=== PATIENT | male | born 1985 ===

== ENCOUNTER 2020-03-01 15:46 | Outpatient (REF) | payer OTHER, SELFPAY ==
--- NOTE | 2020-03-01 16:45 | MR_ITS ---
EXAMINATION: MR BRAIN WITHOUT AND WITH CONTRAST CLINICAL INFORMATION: Cluster headache. COMPARISON: Head CT 02/02/2017. TECHNIQUE: Multiplanar, multisequence imaging of the brain was performed before and after the intravenous administration of 8.5 mL of Gadavist. FINDINGS: There is no acute infarction, mass, hemorrhage, or extra-axial collection. No abnormal or unexpected intracranial enhancement is seen. The ventricles, sulci, and basilar cisterns are normal in size and configuration. The midline structures appear normal. The cerebellar tonsils terminate above the foramen magnum. The flow voids of the major intracranial arteries appear intact. The bones and extracranial soft tissues are within normal limits. The orbital contents are unremarkable. MR/MR head/brain wo/w con IMPRESSION: No mass lesion, acute infarction, or abnormal intracranial enhancement.
== END 2020-03-01 15:47 | disposition home or self-care (01) ==
LOC: HO.MRI 15:46
PROVIDERS: PCP Internal Medicine; Visit Provider Psychiatry & Neurology Neurology
DX: G44.009 Cluster headache syndrome, unspecified, not intractable (principal)
CPT/HCPCS: 70553; A9585

== ENCOUNTER → 2020-12-09 09:03 | Outpatient (BNVA) | payer OTHER, SELFPAY | PROVIDERS: PCP Internal Medicine; Referring Provider Internal Medicine; Visit Provider Surgery | DX: K64.9 Unspecified hemorrhoids (principal) | CPT/HCPCS: 46600; 99212 ==

== ENCOUNTER 2021-01-25 14:57 | Outpatient (REF) | payer OTHER, SELFPAY | END 2021-01-25 14:58 | disposition home or self-care (01) | LOC: HO.LAB 14:57 | PROVIDERS: PCP Internal Medicine; Visit Provider Internal Medicine | DX: Z13.89 Encounter for screening for other disorder (principal) | CPT/HCPCS: C9803; U0003; U0005 ==

== ENCOUNTER 2021-01-26 11:02 | Outpatient (REF) | payer OTHER, SELFPAY ==
[2021-01-26 12:30] LABS: COVID-19 Test Negative (Negative); IDNOW Serial# 16C4AD1C
== END 2021-01-26 11:03 | disposition home or self-care (01) ==
LOC: HO.LAB 11:02
PROVIDERS: PCP Internal Medicine; Visit Provider Internal Medicine
DX: Z20.822 Contact with and (suspected) exposure to COVID-19 (principal)
CPT/HCPCS: 36415; 87635; C9803

== ENCOUNTER 2021-01-27 09:06 | Outpatient (REF) | payer OTHER, SELFPAY | END 2021-01-27 09:07 | disposition home or self-care (01) | LOC: HO.LAB 09:06 | PROVIDERS: Visit Provider Internal Medicine | DX: Z13.89 Encounter for screening for other disorder (principal) ==

== ENCOUNTER 2021-03-26 19:09 | Emergency (ER) | payer OTHER, SELFPAY ==
--- NOTE | ~2021-03-26 | XR_ITS ---
EXAMINATION: XR THORACOLUMBAR SPINE CLINICAL INFORMATION: T11 tenderness. Evaluate for etiology. COMPARISON: Dorsal spine series July 2017 TECHNIQUE: 4 views of the dorsal spine FINDINGS: The dorsal spine the vertebral alignment is normal. No intrinsic bony abnormality. The disc heights and neural foramina are well maintained. The endplates and posterior elements are normal. No fracture or subluxation. The surrounding prevertebral soft tissues are unremarkable. Incidental note made of orthopedic fixation in the lower cervical spine secondary to cervical fusion XR/XR thoracic spine 2V IMPRESSION: No abnormality of T11. No acute abnormality
[2021-03-26 19:12] VITALS: BP 111/65; PULSE 77; RESP 18; TEMP 36.4; O2SAT 98; BMI 25.9
--- NOTE | 2021-03-26 19:50 | ED_ITS ---
HPI - Back Pain/Injury General Chief Complaint: Back Pain/Injury Stated Complaint: back pain Time Seen by Provider: 03/26/21 19:48 Source: patient Mode of arrival: ambulatory Limitations: no limitations History of Present Illness HPI Narrative: History of chronic back pain had laminectomy few years ago not taking any pain medication 3 days ago he bent down noticed pain in lower thoracic and upper lumbar area no radiation of pain no motor weakness sensory loss Related Data Home Medications Medication Instructions Recorded Confirmed baclofen 10 mg tablet 10 mg PO BID 12/09/20 12/09/20 gabapentin 600 mg tablet mg PO 12/09/20 12/09/20 pantoprazole 40 mg tablet,delayed 40 mg PO BID 12/09/20 12/09/20 release sertraline 100 mg tablet 100 mg PO BID 12/09/20 12/09/20 sumatriptan succinate 6 mg/0.5 mL mg SUBCUT 12/09/20 12/09/20 subcutaneous pen injector Previous Rx's Medication Instructions Recorded hydrocortisone acetate 25 mg 25 mg ND BID #24 ea 01/31/21 rectal suppository (Anucort-HC) cyclobenzaprine 10 mg tablet 10 mg PO Q8H #20 tab 03/26/21 tramadol 50 mg tablet 50 mg PO Q6H PRN #20 tab 03/26/21 Allergies Allergy/AdvReac Type Severity Reaction Status Date / Time ibuprofen [IBUPROFEN] Allergy Intermediate NOSEBLEEDS Verified 03/26/21 19:12 alcohol [ALCOHOL] Allergy Unknown FACIAL Verified 03/26/21 19:12 SWELLING,REDNESS oxycodone [From PERCOCET] Allergy Unknown TACHYCARDIA Verified 03/26/21 19:12 ,SHAKING aspirin AdvReac Unknown bleeding Verified 03/26/21 19:12 Beer/ wine Allergy Unknown anaphylaxis Uncoded 03/26/21 19:12 Review of Systems Review of Systems: Yes all other systems are reviewed and are negative PMFSH Past Medical History Medical History Bleeding hemorrhoids Migraine Surgical History History of hernia repair Social History Social History Advance Directives: No Advance Directives Information Provided: No Physical Exam Vital Signs: Vital Signs: Last Vital Signs Temp 97.6 F 03/26/21 19:12 Pulse 77 03/26/21 19:12 Resp 18 03/26/21 19:12 BP 111/65 03/26/21 19:12 Pulse Ox 98 03/26/21 19:12 BMI result Body Mass Index 25.9 Const: General: comfortable and no acute distress Orientation/c onsciousness: patient oriented x3 Neck: Neck: Yes full ROM, Yes trachea midline and No tender Resp: Effort & Inspection: normal respiratory effort Auscultation: clear to auscultation bilaterally Cardio: Heart sounds: S1 normal heart sound present and S2 normal heart sound present GI: Inspection: Yes normal to inspection Palpation (GI): Soft to palpation and nontender Auscultation: normal bowel sounds : General: Yes no CVA tenderness Back/Spine/Pelvis: Back: no CVA tenderness Back/spine/pelvis image: 1. Diffuse tenderness T11/T12 area no deformity paraspinal muscle spasm++ Skin: General skin exam: no rashes or lesions noted Neuro: General: patient oriented x3, gait normal and no focal motor deficits MDM - Back Pain/Injury MDM Narrative Medical decision making narrative: Thoracic spine x-ray negative for any fracture patient diffuse pain in likely muscular discharge patient home on tramadol and Flexeril Discharge Plan Discharge Clinical Impression: Thoracic back pain Patient Disposition: Home, Self-Care Instructions: Back Pain (ED) Additional Instructions: Apply ice pack Rest Pain medication and muscle relaxer as advised Follow-up with PCP if not better Prescriptions: New cyclobenzaprine 10 mg tablet 10 mg PO Q8H Qty: 20 0RF tramadol 50 mg tablet 50 mg PO Q6H PRN (Reason: pain) Qty: 20 0RF No Action hydrocortisone acetate [Anucort-HC] 25 mg suppository 25 mg ND BID Qty: 24 0RF sumatriptan succinate 6 mg/0.5 mL pen injector subcut 0RF sertraline 100 mg tablet 100 mg PO BID 0RF baclofen 10 mg tablet 10 mg PO BID 0RF gabapentin 600 mg tablet PO 0RF pantoprazole 40 mg tablet,delayed release (DR/EC) 40 mg PO BID 0RF Interventions: ED Discharge Assessment Last Done: 03/26/21 21:01 Discharge Date/Time: 03/26/21 21:02
[2021-03-26] MEDS: traMADoL HCL 50 MG TABLET PO (20:16)
[2021-03-26] MEDS: Cyclobenzaprine HCl 10 MG TABLET PO (20:17)
== END 2021-03-26 21:02 | disposition home or self-care (01) ==
PROVIDERS: Emergency Provider Internal Medicine; PCP Internal Medicine
DX: M54.6 Pain in thoracic spine (principal)
CPT/HCPCS: 72070; 99283; 99284

== ENCOUNTER → 2021-04-07 11:00 | Outpatient (BNVA) | payer OTHER, SELFPAY | PROVIDERS: PCP Internal Medicine; Referring Provider Internal Medicine; Visit Provider Internal Medicine | DX: R07.2 Precordial pain (principal) | CPT/HCPCS: 93005; 99202 ==

== ENCOUNTER → 2021-05-25 14:04 | Outpatient (REF) | payer OTHER, SELFPAY ==
--- NOTE | 2021-05-25 14:08 | CA_ITS ---
Transthoracic Echocardiogram Patient (Last, First, Middle): Narendra Negron L Gender: Male Date of : 1985 Age: 35 Procedure Date: 05/25/2021 Procedure Type: Transthoracic Echocardiogram Location: OP Height: 175.26 cm Weight: 77.11 kg BSA: 1.93 m2 Heart Rate: bpm BP: 108 / 64 mmHg [employer] Groover: AMY Referring MD: Silviano Ferguson MD Health Insurance Adjuster: Clyde Rosas MD Symptoms: R07.2 - Precordial pain Study Quality: Good ECG Rhythm: Sinus Conclusions: - Normal study Findings Left Ventricle Normal left ventricular size, thickness, and systolic function. The visually estimated ejection fraction is between 60-65%. Spectral Doppler is indicative of a normal filling pattern. Right Ventricle Normal right ventricular cavity size and systolic function. Atria Both atria are normal in size. There is no evidence of interatrial shunt. Aortic Valve Normal aortic valve structure and function. There is no aortic valve stenosis. There is no aortic valve regurgitation. Mitral Valve Normal mitral valve structure and function. There is trace mitral valve regurgitation. There is no mitral valve stenosis. Pulmonic Valve The pulmonic valve is likely normal. Tricuspid Valve Normal tricuspid valve structure. There is trace tricuspid valve regurgitation. The right ventricular systolic pressure is normal. The right ventricular systolic pressure is 18 mmHg. Normal right atrial pressure. There is no evidence of pulmonary hypertension. Great Vessels All visible segments of the aorta are normal in size. The pulmonary artery was not well visualized. Venous The inferior vena cava is normal in size and collapses greater than 50% with inspiration. Pericardium/Pleural There is no evidence of pericardial effusion. Prior Study Comparison No prior study available for comparison. Measurements 2D Linear Measurements IVSd: 0.72 0.6-0.9/0.6-1.0 cm LVIDd: 5.14 3.9-5.3/4.2-5.9 cm LVIDd Index: 2.66 2.4-3.2/2.2-3.1 cm/m2 LVIDs: 3.12 2.0-3.6 cm LVPWd: 0.81 0.7-1.1 cm LA Diam: 3.90 2.7-3.8/3.0-4.0 cm LAIDs Index: 2.02 1.5-2.3 cm/m2 LV Mass: 167.24 67-162/88-224 g LV Mass Index: 86.65 43-95/49-115 g/m2 LVOT Diam: 2.10 3.0+(-)1.3 cm 2D Systolic Function EF 4C: 57.50 >55% EF 2C: 66.30 >55% EF BiP: 62.10 >55% Mitral Valve MV Pk E: 0.68 MV PK A: 0.48 MV Decel Time: 320.00 E/A: 1.40 E'Lateral: 11.70 E'Medial: 12.90 E/E' Med: 5.30 E/E' Lat: 5.80 PHT: 94.00 MVA PHT: 2.34 Decel [place]: 2.12 Aortic Valve AoV Pk Mauricio: 1.24 AoV Mn Mauricio: 0.94 AoV VTI: 0.29 AoV Pk Grad: 6.00 Aov Mn Grad: 4.00 AJITH Cont.VTI: 2.43 LVOT LVOT Pk Mauricio: 1.00 LVOT Mn Mauricio: 0.66 LVOT VTI: 0.20 LVOT Pk Grad: 4.00 LVOT Mn Grad: 2.00 LVOT Diam: 2.10 LVOT Area: 3.46 Diastolic Function MV Pk E: 0.68 MV Pk A: 0.48 E/A: 1.40 E'Medial: 12.90 E/E' Med: 5.30 E' Laterial: 11.70 E/E' Lat: 5.80 Right Ventricle TAPSE (mm): 22.30 TVS' Mauricio: 12.30 Tricuspid Valve TR Pk Mauricio: 1.95 TR Pk Grad: 15.00 RA Press: 3.00 RVSP: 18.00 Great Vessels Aorta Sinus of Valsalva: 2.87 2.0-3.[address] [place]: 2.21 1.7-3.4 cm Ao Asc: 2.70 2.1-3.4 cm Ao Arch: 2.90 Updated in Other Vendor System with Status of Final Clyde Rosas MD electronically signed on 05/26/2021 12:58:02 PM with status of Final
== END ==
LOC: HO.CARD 14:04
PROVIDERS: PCP Internal Medicine; Visit Provider Internal Medicine
DX: R07.2 Precordial pain (principal)
CPT/HCPCS: 93306

== ENCOUNTER 2021-07-08 09:00 | Outpatient (RCR) | payer OTHER, SELFPAY ==
--- NOTE | 2021-06-29 12:25 | MHC.PT.EP ---
[facility] [place] Office [place] Office [place] Office [address] Beltran Delgadillo [address] [phone] F: [phone] F: [phone] F: [phone] F: [phone] Physical Therapy Plan of Care Date of Evaluation: Date of Surgery: NA Diagnosis: LOW BACK PAIN WITH H/O LUMBAR FUSION L5-S1 (KP) Assessment: AQUILINO IS A PLEASANT 35 YO MALE PRESENTING WITH THORACIC PAIN FOR THE PAST SEVERAL MONTHS AFTER AN EXACCERBATION OF PAIN WHEN LIFTING SEVERAL MONTHS AGO. UPON EXAM HE DEMONSTRATES IMPAIRMENTS OF DECREASED ROM AND STRENGTH OF LEs, DECREASED SOFT TISSUE MOBILITY, INCREASED PAIN. FUNCTIONAL LIMITATIONS INCLUDE DECREASED ABILITY TO PERFORM HOMEMAKING TASKS, PROLONGED PERIODS OF WALKING AND STATIC POSITIONING, ALTERED ABILITY TO LIFT, CARRY, PUSH AND PULL. Pt IS A GOOD CANDIDATE FOR SKILLED PT DUE TO AGE, POTENTIAL REMEDIATION OF IMPAIRMENTS, TYPICAL DISEASE/CONDITION PROGRESSION AND PROGNOSIS, COMORBIDITIES, AND MOTIVATION. Pt WOULD BENEFIT FROM TAILORED PROGRAM OF THERAPEUTIC ACTIVITIES, FUNCTIONAL TRAINING, GAIT TRAINING, POSTURAL EDUCATION, NEUROMUSCULAR RE-EDUCATION, AND MODALITIES NEEDED. Frequency and Duration: The patient will be seen 2 X WEEK FOR 4 WEEKS Short Term Goals: INITIATE HEP AND PROMOTE SELF MANAGEMENT OF SYMPTOMS IN 2 VISITS [employer] Goals: IN 4 WEEKS FULL, PAIN FREE LUMBAR ROM TO PERFORM FULL FUNCTIONAL SQUAT WITH CORRECT MECHANICS AND NO VERBAL CUING TO PERFORM 3:3 LIFTING TASKS UP TO 30# WITHOUT CUING AND PAIN NO GREATER THAN 2/10 INDEPENDENT HEP AND SELF MANAGEMENT OF ANY RESIDUAL SYMPTOMS Treatment Plan: Modalities to reduce pain, spasms and effusion. Manual therapy to restore motion and function. Therapeutic exercise to improve strength and flexibility. Neuromuscular re-education for posture and balance. Therapeutic activities to return to functional activities of daily living. Electronically signed by: ROGER VÁZQUEZ PT, DPT Please sign and return to therapist. Thank you for your referral.
== END 2021-09-08 10:08 | disposition home or self-care (01) ==
LOC: HO.PT 09:00
PROVIDERS: PCP Internal Medicine; Visit Provider Internal Medicine
DX: M54.50 Low back pain, unspecified (principal)
CPT/HCPCS: 97110; 97140; 97161

== ENCOUNTER 2021-09-16 10:49 | Outpatient (REF) | payer OTHER, SELFPAY ==
--- NOTE | ~2021-09-16 | MR_ITS ---
EXAMINATION: MR LUMBAR SPINE WITHOUT AND WITH CONTRAST CLINICAL INFORMATION: 35-year-old with low back pain. Self-reported left hip pain and shooting pain with lifting. COMPARISON: 09/19/2016 MRI TECHNIQUE: Multiplanar multisequence MR imaging of the lumbar spine was done prior to and following the administration of 8 mL of Gadavist. FINDINGS: CORONAL ALIGNMENT: Normal. SAGITTAL ALIGNMENT: The lumbosacral spine is anatomically aligned. LUMBOSACRAL JUNCTION: Normal. 5 nonrib-bearing lumbar-type vertebral bodies. VERTEBRAL BODIES: Normal height. DISC SPACES AND ENDPLATES: Status post ALIF procedure at the L5-S1 level. Otherwise the remaining lumbar and lower thoracic intervertebral disc space heights and signal are well-maintained. Endplates are intact. No significant spondylosis. SPINAL CANAL: No abnormal developmental findings. BONE MARROW: No significant marrow-replacing process or bone marrow edema. No abnormal bone marrow enhancement. CONUS MEDULLARIS: Terminates at T12-L1. Morphology and signal is normal. No abnormal enhancement. INTRADURAL NERVE ROOTS: Within normal limits. No abnormal intradural enhancement. L5-S1: Previously noted central to left paramedian disc protrusion is no longer visualized. There is no significant facet arthrosis, canal or neural foraminal stenosis. L4-L5: Mild annular bulging stable in appearance. Moderate left-sided and [id number] right-sided facet arthropathy similar to previous exam with moderate ligamentum flavum thickening unchanged. Slight narrowing of the left subarticular zone again noted with minimal encroachment on the left S1 nerve root sleeve at its origin unchanged. No central canal stenosis. No significant neural foraminal stenosis. L3-L4: Very small inferior foraminal disc protrusion noted on the left at this level on current study without neural impingement. Xffk-ch-[id number] facet arthropathy noted bilaterally unchanged in appearance without significant canal or neural foraminal stenosis. L2-L3: Tiny left subarticular disc protrusion on current study without neural impingement. Mild left-sided facet arthropathy and ligamentum flavum thickening stable in appearance. No canal or neural foraminal stenosis. L1-L2: Normal disc contour. No facet arthrosis, canal or neural foraminal stenosis. PARASPINAL/RETROPERITONEAL: The paravertebral soft tissues are unremarkable. MR/MR lumbar spine wo/w con IMPRESSION: 1. Status post ALIF procedure at the L5-S1 level with no significant canal or neural foraminal stenosis. Satisfactory postoperative appearance. 2. Minor disc bulging at L4-L5 stable in appearance with facet arthropathy at this level and ligamentum flavum thickening unchanged in appearance with slight narrowing of the left subarticular zone unchanged. 3. Tiny inferior foraminal disc protrusion on the left at L3-L4 without neural impingement and a tiny left subarticular disc protrusion at L2-L3 without neural impingement, which are new findings. 4. No abnormal leptomeningeal or intradural enhancement.
== END 2021-09-16 10:50 | disposition home or self-care (01) ==
LOC: HO.MRI 10:49
PROVIDERS: Visit Provider Internal Medicine
DX: M54.50 Low back pain, unspecified (principal)
CPT/HCPCS: 72158; A9585

== ENCOUNTER → 2021-09-28 14:11 | Outpatient (BNVA) | payer OTHER, SELFPAY | PROVIDERS: PCP Internal Medicine; Referring Provider Internal Medicine; Visit Provider Surgery | DX: K64.8 Other hemorrhoids (principal) | CPT/HCPCS: 46600; 99212 ==

== ENCOUNTER 2021-11-07 10:00 | Outpatient (RCR) | payer OTHER, SELFPAY | END 2021-11-09 10:38 | disposition home or self-care (01) | LOC: HO.PT 10:00 | PROVIDERS: Visit Provider Orthopaedic Surgery | DX: Z98.890 Other specified postprocedural states (principal) | CPT/HCPCS: 97110; 97112; 97140; 97161; 97530 ==

== ENCOUNTER 2021-12-05 11:30 | Outpatient (REF) | payer OTHER, SELFPAY ==
--- NOTE | ~2021-12-05 | XR_ITS ---
EXAMINATION: XR CERVICAL SPINE CLINICAL INFORMATION: Pain COMPARISON: None TECHNIQUE: 3 views of the cervical spine were obtained. FINDINGS: Postsurgical changes from ACDF at C5-C6. Bone alignment is normal. No fracture or dislocation or x-ray evidence of hardware loosening. Degenerative spondylosis and degenerative disc narrowing at C3-C4 C4-C5 and C6-C7. Normal prevertebral soft tissues. XR/XR cervical spine 3V IMPRESSION: Postsurgical changes from ACDF at C5-C6. Degenerative changes of the cervical spine.
== END 2021-12-05 11:31 | disposition home or self-care (01) ==
LOC: HO.XRAY 11:30
PROVIDERS: PCP Internal Medicine; Visit Provider Internal Medicine
DX: M54.2 Cervicalgia (principal)
CPT/HCPCS: 72040

== ENCOUNTER 2022-01-31 09:20 | Outpatient (REF) | payer OTHER, SELFPAY | END 2022-01-31 09:21 | disposition home or self-care (01) | LOC: HO.HOSX 09:20 | PROVIDERS: Visit Provider Physician Assistant | DX: M54.12 Radiculopathy, cervical region (principal) | CPT/HCPCS: 99202 ==

== ENCOUNTER → 2022-03-20 08:46 | Outpatient (BNVA) | payer OTHER, SELFPAY | PROVIDERS: PCP Internal Medicine; Visit Provider Internal Medicine | DX: M47.812 Spondylosis without myelopathy or radiculopathy, cervical region (principal); Z98.890 Other specified postprocedural states | CPT/HCPCS: 99202 ==

== ENCOUNTER 2022-03-23 18:08 | Outpatient (REF) | payer OTHER, SELFPAY ==
[2022-03-23 19:17] LABS: Influenza A PCR NEGATIVE (Negative); Influenza B PCR NEGATIVE (Negative); Resp Syncy Virus RNA Qual PCR NEGATIVE (Negative); SARS COV2 PCR INHOUSE NEGATIVE (Negative)
== END 2022-03-23 18:09 | disposition home or self-care (01) ==
LOC: HO.LNP 18:08
PROVIDERS: Visit Provider Internal Medicine
DX: Z20.822 Contact with and (suspected) exposure to COVID-19 (principal); R05.9 Cough, unspecified; R50.9 Fever, unspecified
CPT/HCPCS: 0241U

== ENCOUNTER 2022-04-26 06:06 | Outpatient (REF) | payer OTHER, SELFPAY ==
--- NOTE | ~2022-04-26 | FL_ITS ---
EXAMINATION: XR FLUOROSCOPY WITH IMAGES CLINICAL INFORMATION: M47.812 - Spondylosis without myelopathy or radiculopathy, cervical region COMPARISON: Radiographs cervical spine 12/05/2021 TECHNIQUE: Fluoroscopy Supervised By: Dr. Dayne Fung. Fluoroscopy Time: 0.2 minutes. Cumulative Dose: 1.88 mGy. DAP: 0.143 Gycm2. Images: 3. FINDINGS: There are spinal needles overlying the right lateral masses cervical spine approximately levels C3-C4, 3 5, 3 6. There is contrast in the paraspinal soft tissues and nerve sheaths. No visible vascular communication. There has been prior anterior cervical fusion C5-C6 with anterior plate and screws. There are degenerative disc changes again noted C4-C5 and C6-C7. FL/FL guidance in treatment room IMPRESSION: Fluoroscopy for pain management procedure.
== END 2022-04-26 06:07 | disposition home or self-care (01) ==
LOC: CF 06:06
PROVIDERS: Visit Provider Internal Medicine
DX: M47.812 Spondylosis without myelopathy or radiculopathy, cervical region (principal)
CPT/HCPCS: 64490; 64491

== ENCOUNTER → 2022-04-28 11:07 | Outpatient (BNVA) | payer OTHER, SELFPAY | PROVIDERS: PCP Internal Medicine; Visit Provider Internal Medicine ==

== ENCOUNTER 2022-06-10 19:36 | Emergency (ER) | payer OTHER, SELFPAY ==
[2022-06-10 19:43] VITALS: BP 115/49; PULSE 80; RESP 20; TEMP 36.9; O2SAT 98; BMI 27.2
--- NOTE | 2022-06-10 20:01 | PC.NURSE ---
pt a&ox4, vss, reporting 10/10 left knee pain following left knee open biocartilage with PRP implantation for known patellar and trochlear defects yesterday morning at [facility], followed up with [facility] ED, but left without being seen. has been taking hydromorphone 2mg every 4hrs, tylenol and aspirin. records received from [facility], pt pending ED provider.
--- NOTE | 2022-06-10 20:40 | ED_ITS ---
HPI - General Adult General Chief complaint: Extremity Injury, Lower Stated complaint: Knee pain Time Seen by Provider: 06/10/22 20:28 Source: patient Mode of arrival: ambulatory Limitations: no limitations History of Present Illness HPI narrative: This is a 36-year-old male postop day 1 from knee surgery at [facility] presenting with increasing pain despite Dilaudid 2 mg every 4 hours which is prescribed to patient along with an anti-inflammatory, patient reports that medication is not strong enough reports he went to [facility] and decided to leave because nobody was doing anything. He reports that he tried calling his orthopedic office in nobody answered. Reports 20/ pain. And is requesting stronger pain medicines. Related Data Previous Rx's Medication Instructions Recorded cyclobenzaprine 10 mg tablet 10 mg PO Q8H #20 tabs 03/26/21 Allergies Allergy/AdvReac Type Severity Reaction Status Date / Time ibuprofen [IBUPROFEN] Allergy Intermediate NOSEBLEEDS Verified 06/10/22 19:42 alcohol [ALCOHOL] Allergy Unknown FACIAL Verified 06/10/22 19:42 SWELLING,REDNESS oxycodone [From PERCOCET] Allergy Unknown TACHYCARDIA Verified 06/10/22 19:42 ,SHAKING aspirin AdvReac Unknown bleeding Verified 06/10/22 19:42 Beer/ wine Allergy Unknown anaphylaxis Uncoded 04/26/22 08:03 Review of Systems Review of Systems: Constitutional : No Weight loss, No Fever, No Chills, No Fatigue, No Malaise ENT/Mouth : No sore throat, No Rhinorrhea Eyes: No Eye Pain, No Swelling, No Redness Cardiovascular : No Chest Pain, No SOB, No Dyspnea on Exertion, No Orthopnea, No Edema, No Palpitations Respiratory : No Cough, No Sputum, No Wheezing Gastrointestinal : No Nausea, No Vomiting, No Diarrhea, No Constipation, No abdominal Pain, No Hematochezia, No Melena Genitourinary : No Dysuria, No Urinary Frequency, No Hematuria, Musculoskeletal : + joint pain, No Myalgias, + Joint Swelling Skin : No Skin Lesions, No rash Neuro : No Weakness, No Numbness, No Dizziness, No Headache Psych : No Anxiety/Panic, No Depression All other systems reviewed and are negative Yes all other systems are reviewed and are negative PMFSH Past Medical History Attestation statement: The following information was validated with the patient. Source: old records reviewed and nursing notes reviewed Medical History Bleeding hemorrhoids Migraine Surgical History History of hernia repair Family History Family History Father No problems noted. Mother Hypertension Social History Social History Patient Tobacco Use Status: Never used Tobacco Advance Directives: No Advance Directives Information Provided: No Physical Exam ED Vital Signs: Vital Signs - 24 hr 06/10/22 19:43 Temperature 98.4 F Pulse Rate 80 Respiratory Rate 20 Blood Pressure 115/49 L Pulse Oximetry 98 Oxygen Delivery Method Room Air BMI result Body Mass Index 27.2 Vital signs stable Appearance: Alert.? Oriented X3.? No acute distress.? Head: Normocephalic, atraumatic, no step-offs or deformities Eyes: Pupils equal, round and reactive to light.? ENT: Pharynx normal.? Neck: Normal inspection.? Neck supple.? CVS: Normal heart rate and rhythm.? Pulses normal.? Respiratory: No respiratory distress.? Breath sounds normal.? Abdomen: Soft and nontender.? Skin: Skin warm and dry.? Normal skin color.? Normal skin turgor.? Extremities: No lower extremity edema.? No calf ttp. 5/5 strength to bilateral upper and lower extremities. Patient in post op dressing to L knee ( will not remove due to risk of infection) . Normal sensation to b/l lower extremities. 2+ dorsalis pedis, anterior tibialis and posterior tibialis pulses equal bilateral. No swelling to bilateral lower extremities. Capillary refill brisk to bilateral lower extremities less than 2 seconds. Neuro: Oriented X 3.? No motor deficit.? No sensory deficit. CN 2-12 intact Course Course Course Narrative: Case discussed w/ my attending who recommends dc after tordol no need for labs or imaging. Reevaluation(s) Reevaluation #1: Records were obtained from [facility] patient had surgery yesterday he had a arthroscopy and bio cartilage/PRP implantation for known patellar and trochlear defects done by Dr. Liriano.. Toradol be given and patient will be discharged home with prompt orthopedic follow-up. Educated patient on diagnosis and treatment plan, answered all question, patient verbalizes understanding. At this time patient will be discharged home, advised to return with new or worsening symptoms. Educated on worrisome signs and symptoms and when to return. At this time I feel comfortable discharge home. Time: 20:46 Medications Administered Discontinued Medications Generic Name Dose Route Start Last Admin Trade Name Priti PRN Reason Stop Dose Admin Ketorolac Tromethamine 30 mg 06/10/22 20:37 06/10/22 20:42 Ketorolac Tromethamine 30 Mg/Ml Vial IM 06/10/22 20:38 30 mg ONCE ONE Administration Medical Decision Making Medical Decision Making MDM Narrative: 36-year-old male presents with left knee pain status post knee surgery yesterday [facility] requesting stronger pain medicine. Is prescribe Dilaudid 2 mg p.o. every 4 hours and anti-inflammatory medication however is only taking Dilaudid. Physical exam significant for 5/5 strength to bilateral upper and lower extremities. Patient in post op dressing to L knee ( will not remove due to risk of infection) . Normal sensation to b/l lower extremities. 2+ dorsalis pedis, anterior tibialis and posterior tibialis pulses equal bilateral. No swelling to bilateral lower extremities. Capillary refill brisk to bilateral lower extremities less than 2 seconds. This is likely normal postoperative pain. I do not suspect threatened limb, arterial or venous occlusion. Unlikely septic joint. I do not suspect cellulitis or erysipelas. Plan at this time will give Toradol in discharge patient home with orthopedic follow-up. I do not feel as though it is appropriate to undress the surgical site as surgery was yesterday, patient afebrile, no signs of infection no streaking. Differential Diagnosis Differential Diagnoses: The differential diagnosis associated with the presentation includes This is likely normal postoperative pain. I do not suspect threatened limb, arterial or venous occlusion. Unlikely septic joint. I do not suspect cellulitis or erysipelas. Admission/Observation Consideration of admission/observation: Escalation of care including admission/observation considered Unlikely Core Measures AMI core measures followed: Yes Measure exclusions: not indicated Critical Care Time Critical Care Time Critical Care Time: No Discharge Plan Discharge Clinical Impression: Knee pain, left Patient Disposition: Home, Self-Care Instructions: Knee Pain (ED), R.I.C.E. Treatment (ED) Additional Instructions: Take your medications as prescribed. If you were prescribed antibiotics today, it is important that you take your medication to their entirety, do not skip any doses, do not finish them early. Follow-up with your primary care provider this week. Return to the emergency department with new or worsening symptoms. Such as fevers, chills, chest pain, shortness of breath, nausea, vomiting, dizziness, headache, vision changes, lethargy on numbness, tingling In case of emergency call 911 You need to follow-up with the surgeon who did the surgery as soon as possible. If you have any issues please call the on-call number for the office. Prescriptions: No Action cyclobenzaprine 10 mg tablet 10 mg PO Q8H Qty: 20 0RF Referrals: Physician,Unknown J [Primary Care Provider] - 2 days Stand Alone Forms: Work/School Release Interventions: ED Discharge Assessment Last Done: 06/10/22 20:49 Discharge Date/Time: 06/10/22 20:59
[2022-06-10] MEDS: Ketorolac Tromethamine 30 MG/ML VIAL IM (20:42)
--- NOTE | 2022-06-10 20:50 | PC.NURSE ---
pt medicated per APR for 10/10 left knee pain.
== END 2022-06-10 20:59 | disposition home or self-care (01) ==
PROVIDERS: Emergency Provider Student in an Organized Health Care Education/Training Program
DX: G89.18 Other acute postprocedural pain (principal); M25.562 Pain in left knee; Z79.899 Other long term (current) drug therapy
CPT/HCPCS: 96372; 99283; 99284; J1885

== ENCOUNTER 2022-08-23 11:00 | Outpatient (RCR) | payer OTHER, SELFPAY | END 2022-08-31 11:40 | disposition home or self-care (01) | LOC: HO.PT 11:00 | PROVIDERS: PCP Internal Medicine; Visit Provider Orthopaedic Surgery | DX: Z96.652 Presence of left artificial knee joint (principal) | CPT/HCPCS: 97014; 97110; 97112; 97162; 97530 ==

== ENCOUNTER 2022-11-10 11:29 | Outpatient (REF) | payer OTHER, SELFPAY ==
[2022-11-10 14:05] LABS: Alanine Aminotransferase 26 U/L (0-40); Albumin Level 4.3 g/dL (3.5-5.0); Alkaline Phosphatase 114 U/L (39-117); Anion Gap 16 (12-20); Aspartate Amino Transferase 21 U/L (5-37); Bilirubin Total 0.4 mg/dL (0.0-1.0); Blood Urea Nitrogen 13 mg/dL (9-16); C Reactive Protein 1.49 mg/dL (< or = 0.50); Calcium 9.8 mg/dL (8.4-10.2); Carbon Dioxide 25 mmol/L (22-29); Chloride 108 mmol/L (96-108); Cholesterol 183 mg/dL (<200); Estimated Glomerular Filt Rate > 60; Glucose Random 98 mg/dL (60-115); Potassium 4.5 mmol/L (3.3-5.1); Sodium 144 mmol/L (135-145); Total Protein 7.8 g/dL (6.5-8.0)
== END 2022-11-10 11:30 | disposition home or self-care (01) ==
LOC: HO.LAB 11:29
PROVIDERS: PCP Internal Medicine; Visit Provider Internal Medicine
DX: M54.2 Cervicalgia (principal); K21.9 Gastro-esophageal reflux disease without esophagitis
CPT/HCPCS: 36415; 80053; 82465; 85025; 86140

== ENCOUNTER 2022-11-20 09:12 | Outpatient (REF) | payer OTHER, SELFPAY ==
--- NOTE | ~2022-11-20 | XR_ITS ---
EXAMINATION: XR CERVICAL SPINE CLINICAL INFORMATION: Neck pain COMPARISON: None available. TECHNIQUE: 5 views of the cervical spine were obtained. FINDINGS: There is mild reversal of cervical lordosis. There is bony C5-C6 disc fusion stabilized with ventral plate and screws. Mild loss of C3 6-7 disc height with ventral spondylosis noted. Also visualized is mild ventral spondylosis C4-C5 disc level. The left neural foramina is narrowed from C6-C7 disc level from uncovertebral hypertrophic changes. The prevertebral soft tissues are normal. XR/XR cervical spine 4V IMPRESSION: 1. C5-C6 disc fusion stabilized with ventral plate and screws. 2. There is degenerative disc changes C6-C7 disc level with ventral spondylosis. No visible acute fracture or dislocation seen.
== END 2022-11-20 09:13 | disposition home or self-care (01) ==
LOC: HO.XRAY 09:12
PROVIDERS: PCP Internal Medicine; Visit Provider Internal Medicine
DX: M54.2 Cervicalgia (principal)
CPT/HCPCS: 72050

== ENCOUNTER 2023-01-17 13:42 | Outpatient (AMB) | payer OTHER, SELFPAY ==
--- NOTE | 2023-01-17 13:56 | A.OFFVIS_ITS ---
Intake Vital Signs 01/17/23 14:02 Height 5 ft 9 in Weight 188 lb BMI 27.8 BP 109/57 L Blood Pressure Location Rt brachial Position Sitting Pulse 68 Intake Visit Reasons: Hemorrhoids Intake Note: This patient presents for an assessment for hemorrhoids. Patient c/o; reports rectal bleeding. Allergies ibuprofen [IBUPROFEN] Allergy (Intermediate, Verified 06/10/22 19:42) NOSEBLEEDS alcohol [ALCOHOL] Allergy (Unknown, Verified 06/10/22 19:42) FACIAL SWELLING,REDNESS oxycodone [From PERCOCET] Allergy (Unknown, Verified 06/10/22 19:42) TACHYCARDIA,SHAKING aspirin Adverse Reaction (Unknown, Verified 06/10/22 19:42) bleeding Beer/ wine Allergy (Unknown, Uncoded 04/26/22 08:03) anaphylaxis Medication List - Last Reconciled 01/17/23 by Levy Matias MD cyclobenzaprine 10 mg PO Q8H HPI Hemorrhoids HPI Details He is here for follow-up because of his history of hemorrhoids. He wanted this checked because he says he has occasional pinching pain outside his anus. He says that this is not frequent. He denies any bleeding which his main complaint in the past He also mentions that he has frequent watery stools. He says that this happens about once a week. He says that his stools will be very watery and often times he has a problem with urgency with going to the bathroom because of this. He also says that he used to see a account service representative many years ago while living in [place]. [facility] Medical History (Updated 01/17/23 @ 14:38 by Levy Matias MD) Hemorrhoids Bleeding hemorrhoids Migraine Surgical History History of hernia repair Family History Father No problems noted. Mother Hypertension Social History Patient Tobacco Use Status: Never used Tobacco Review of Systems Const Denies chills and Denies fever(s) Card Denies chest pain, Denies dyspnea and Denies dyspnea on exertion Resp Denies cough, Denies dyspnea and Denies dyspnea on exertion GI Denies hematochezia, Denies change in bowel habits and Reports diarrhea Denies hematuria and Denies difficulty urinating Musc Denies back pain and Denies limited range of motion Neuro Denies focal weakness and Denies convulsions Psych Denies depression and Denies mood swings Physical Exam Vital Signs: Last Vital Signs Pulse 68 01/17/23 14:02 BP 109/57 L 01/17/23 14:02 BMI result Body Mass Index 27.8 Const General: comfortable and no acute distress Orientation/consciousness: patient oriented x3 Neck Neck: Yes no lymphadenopathy Resp Auscultation: clear to auscultation bilaterally Cardio Rhythm: regular rhythm GI Other: Rectal exam shows small external hemorrhoids, perianal lesions Palpation (GI): Soft to palpation, nontender and no guarding Neuro General: patient oriented x3 Assessment & Plan Assessment & Plan (1) Hemorrhoids: Code(s): K64.9 - Unspecified hemorrhoids Plan: I had been seeing him in the past because of bleeding internal hemorrhoids. He wanted this checked because of what he says was occasional pinching pain outside the anus. I assured him at this time that he does have external hemorrhoids but this are very small and would not recommend hemorrhoidectomy. He denies any bleeding anymore as well. He also mentions that he has this frequent diarrhea as above. He does state that this usually happens with intake of yogurt but he says that he is able to drink 2% milk without problems. He says he used to see a account service representative so I told him that he should consider seeing a account service representative here in to mention it to his primary care physician. In the meantime, I will prescribe him Metamucil better stool consistency. He can follow up with me on a p.r.n. basis He is comfortable with the plan as above. Coding Level of Care Code Est Pt Level 3 (33970) Diagnoses Hemorrhoids K64.9
[2023-01-17 14:02] VITALS: BP 109/57; PULSE 68; BMI 27.8
== END 2023-01-17 14:38 | disposition home or self-care (01) ==
PROVIDERS: PCP Internal Medicine; Visit Provider Surgery
DX: K64.9 Unspecified hemorrhoids (principal)
CPT/HCPCS: 99213

== ENCOUNTER → 2023-01-17 13:42 | Outpatient (BNVA) | payer OTHER, SELFPAY | PROVIDERS: PCP Internal Medicine; Visit Provider Surgery | DX: K64.9 Unspecified hemorrhoids (principal) | CPT/HCPCS: 99212 ==

== ENCOUNTER 2023-01-26 10:10 | Outpatient (AMB) | payer OTHER, SELFPAY ==
--- NOTE | 2023-01-26 10:22 | HO.SPINEOV ---
Intake Intake Visit Reasons: Neck pain Intake Note: Mr. Negron is here today c/o continuous neck pain. MRI done @ [facility] [place]. [employer] Required: No Allergies ibuprofen [IBUPROFEN] Allergy (Intermediate, Verified 06/10/22 19:42) NOSEBLEEDS alcohol [ALCOHOL] Allergy (Unknown, Verified 06/10/22 19:42) FACIAL SWELLING,REDNESS oxycodone [From PERCOCET] Allergy (Unknown, Verified 06/10/22 19:42) TACHYCARDIA,SHAKING aspirin Adverse Reaction (Unknown, Verified 06/10/22 19:42) bleeding Beer/ wine Allergy (Unknown, Uncoded 04/26/22 08:03) anaphylaxis Assessment & Plan Assessment & Plan (1) Cervical radiculopathy: Code(s): M54.12 - Radiculopathy, cervical region Plan Dear Dr Whitney, Thank you for referring Mr. Negron to our office today. He is a 37-year-old mechanical underwent an anterior cervical diskectomy and fusion with Dr. Pires at [facility] back in 2019 for neck pain and right arm pain. The pain starts in his neck, comes down across the top of his shoulder into his subscapular region, goes under his armpit and radiates down into his biceps, forearm and into his thumb and index finger. He tells me that initially after the surgery he had a brief period of time with the pain went away, but ultimately it came back exactly like it was before surgery. The patient was seen in follow-up and postoperative MRIs were done which did not show any evidence of persistent compression. He was treated with PT and tincture of time but unfortunately things never got better. He ultimately ended up under going a number of different cortisone shots in the neck and that did not help either. He had been discharged from Dr. Pires is practice and looking for someone to follow up with and was referred to us today for evaluation. He tells me that the pain in his arm is constant and is worsened with activity. 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 At times his arm will cramp up and cause him to stop what he is doing. He spends most of the day with his arm flexed and holding it to his side to avoid causing the pain to flare up. He tried Motrin and Tylenol the usual [id number] treatments but they do not work either. 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 PMH: He had an anterior lumbar interbody fusion done years ago and did well from that, he had carpal tunnel release on the right hand, left hip surgery left knee surgery. He is otherwise healthy. Social hx: He does not smoke cigarettes, uses no recreational drugs or any alcohol Medications: Currently taking no medication Allergies: Percocet gives him itching Physical exam: He has mild strength loss in his right hand as well as an absent right triceps reflex, rest of his exam is normal Imaging review: Patient has MRI done at [facility] showing evidence of solid fusion at C5-6 without any residual foraminal stenosis. He has adjacent segment disease below the fusion at C6-7 where he has developed foraminal stenosis at this level. I compared the images to those done at [facility] shortly after his surgery and I can see progression of foraminal stenosis at this level. Impression: 37-year-old male presents to the office today for evaluation of right arm pain which did not respond to an anterior cervical fusion at C5-[address] Pires in 2019, who has developed adjacent segment disease and foraminal stenosis at C6-7 on his most recent MRI.. The pain feels exactly like it did before surgery. I went back and reviewed his old imaging with him at [facility] as well as his new imaging done at [facility]. At the time of surgery in 2019, he did not have any issues at C6-7 but has developed them after surgery and I am wondering if this is not the cause of his arm pain. What is puzzling is that he describes the pain as exactly the same pain that he had before surgery when he did not have any compression on his MRI at C6-7, but rather had at C5-6. This poses the question, is he dealing with chronic nerve pain/damage from the previous compression and the C6-7 is an incidental finding? On the other hand, given the amount of pain he is in and the restriction in his quality of life, would be worth considering doing an anterior cervical fusion at C6-7 to decompress the C7 nerve root. He does have some strength loss in the right hand and absent reflex in the right triceps which suggests he could have a radiculopathy coming from the C7 nerve. I am going to review the imaging with Dr. Peoples and get back to the patient with a final plan. He is currently in a tremendous amount of pain and I believe he would lean in the direction of surgery if it was offered. Thank you for allowing us to care for your patient. The total time spent with this visit with this patient was 45 minutes reviewing history, physical exam, cervical spine imaging review, and implementation of treatment plan or further diagnostic testing Neftali Peoples MD,PhD [facility] Coding Level of Care Code New Pt Level 4 (11230) Diagnoses Cervical radiculopathy M54.12
== END 2023-01-26 11:32 | disposition home or self-care (01) ==
PROVIDERS: PCP Internal Medicine; Referring Provider Internal Medicine; Visit Provider Physician Assistant
DX: M54.12 Radiculopathy, cervical region (principal)
CPT/HCPCS: 99204

== ENCOUNTER → 2023-01-26 10:10 | Outpatient (BNVA) | payer OTHER, SELFPAY | PROVIDERS: PCP Internal Medicine; Visit Provider Physician Assistant | DX: M54.12 Radiculopathy, cervical region (principal) | CPT/HCPCS: 99202 ==

== ENCOUNTER 2023-04-12 08:16 | Day surgery (SDC) | payer OTHER, SELFPAY ==
[2023-04-11 10:45] VITALS: BMI 26.6
--- NOTE | 2023-04-11 10:47 | HO.ANESPROP2 ---
Documented by User: Gini Koenig NP 04/11/23 10:48 HPI - Anesthesia Eval Consult details Narrative: 37yo M for C6-7 Ant Cerv Discectomy w/ fusion PMFSH Active Problems Active Problems: All Active Problems (Updated 04/11/23 @ 10:45 by Jackie Warren, CARMEN) History of spinal surgery (Acute) Cervical spondylosis (Acute) Cervical radiculopathy (Acute) Precordial chest pain (Acute) Hemorrhoids (Acute) Bleeding hemorrhoids (Acute) History of hernia repair (Acute) Migraine (Acute) Past Medical History Medical History Personal history of COVID-19 (~2020) Depression Hemorrhoids Bleeding hemorrhoids Migraine Family History Family History Father No problems noted. Mother Hypertension Surgical History Surgical History History of surgery on wrist Hx of neck surgery History of surgery (~2014) History of arthroscopy of hip Hx of arthroscopy of knee S/P carpal tunnel release Hx of cervical spine surgery (~2018) History of hernia repair Social History Social History Are you a primary transitional care manager to a significant other at home: No Do you presently have visiting nurse or other home services: No Patient Tobacco Use Status: Never used Tobacco Use of substances other than those prescribed or required for medical reasons: No Have you been hit, kicked, punched, or otherwise hurt by someone within the past year? If so, by whom?: No Are you DNR?: No Advance Directives: No Advance Directives Information Provided: Yes Advance Directives on File: No Recently lost weight without trying: Yes How much weight loss: 2-13 pounds Eating poorly because of decreased appetite: Yes Nutrition screen score: 4 Poor oral hygiene: No Meds Allergies Allergy/AdvReac Type Severity Reaction Status Date / Time alcohol [ALCOHOL] Allergy Severe Anaphylaxis Verified 04/11/23 10:27 oxycodone [From PERCOCET] Allergy Severe TACHYCARDIA,SHAKING, Verified 04/11/23 10:27 itching aspirin AdvReac Intermediate Nose Bleed Verified 04/11/23 10:27 ibuprofen [IBUPROFEN] AdvReac Intermediate Nose Bleed Verified 04/11/23 10:27 Beer/ wine Allergy Severe anaphylaxis Uncoded 04/11/23 10:27 Home Medications Medication Instructions Recorded Confirmed Last Taken Type pantoprazole 20 mg tablet,delayed 20 mg PO DAILY PRN Gastric Reflux 04/11/23 04/11/23 Unknown History release vilazodone 10 mg tablet 10 mg PO DAILY 04/11/23 04/11/23 Unknown History Exam Height,Weight and Vital Signs: Height 5 ft 9 in Weight 81.647 kg Pertinent Lab Results Pertinent Lab Results: Laboratory Tests 11/10/22 11:39 WBC 11.5 H Hgb 15.0 Hct 45.3 Plt Count 205 Sodium 144 Potassium 4.5 Chloride 108 Carbon Dioxide 25 BUN 13 Creatinine 0.95 Narrative Narrative: ECHO 2021 Conclusions: - Normal study Assessment and Plan Assessment Anesthesia Assessment: Chart Reviewed Documented by User: Noelle Toro MD 04/12/23 11:46 PMFSH Active Problems Active Problems: All Active Problems (Updated 04/12/23 @ 09:00 by Noelle Toro MD) History of spinal surgery (Acute) Cervical spondylosis (Acute) Cervical radiculopathy (Acute) Precordial chest pain (Acute) Hemorrhoids (Acute) Bleeding hemorrhoids (Acute) History of hernia repair (Acute) Migraine (Acute) Past Medical History Medical History Personal history of COVID-19 (~2020) Depression Hemorrhoids Bleeding hemorrhoids Migraine Family History Family History Father No problems noted. Mother Hypertension Family history of problems with anesthesia: No Surgical History Surgical History History of surgery on wrist Hx of neck surgery History of surgery (~2014) History of arthroscopy of hip Hx of arthroscopy of knee S/P carpal tunnel release Hx of cervical spine surgery (~2019) History of hernia repair History of Problems with Anesthesia: No Social History Social History Are you a primary transitional care manager to a significant other at home: No Do you presently have visiting nurse or other home services: No Patient Tobacco Use Status: Never used Tobacco Use of substances other than those prescribed or required for medical reasons: No Have you been hit, kicked, punched, or otherwise hurt by someone within the past year? If so, by whom?: No Are you DNR?: No Advance Directives: No Advance Directives Information Provided: Yes Advance Directives on File: No Recently lost weight without trying: Yes How much weight loss: 2-13 pounds Eating poorly because of decreased appetite: Yes Nutrition screen score: 4 Poor oral hygiene: No Meds Allergies Allergy/AdvReac Type Severity Reaction Status Date / Time alcohol [ALCOHOL] Allergy Severe Anaphylaxis Verified 04/11/23 10:27 oxycodone [From PERCOCET] Allergy Severe TACHYCARDIA,SHAKING, Verified 04/11/23 10:27 itching aspirin AdvReac Intermediate Nose Bleed Verified 04/11/23 10:27 ibuprofen [IBUPROFEN] AdvReac Intermediate Nose Bleed Verified 04/11/23 10:27 Beer/ wine Allergy Severe anaphylaxis Uncoded 04/11/23 10:27 Home Medications Medication Instructions Recorded Confirmed Last Taken Type pantoprazole 20 mg tablet,delayed 20 mg PO DAILY PRN Gastric Reflux 04/11/23 04/11/23 Unknown History release vilazodone 10 mg tablet 10 mg PO DAILY 04/11/23 04/11/23 Unknown History Exam Height,Weight and Vital Signs: Height 5 ft 9 in Weight 81.647 kg Vital Signs Temp Pulse Resp BP Pulse Ox O2 Del Method 04/12/23 08:41 96.9 F 70 20 116/71 98 Room Air Narrative Narrative: ECHO 2021 Conclusions: - Normal study 04/12/23: 12 lead EKG Date of Service: 04/12/23 Procedure(s): ECG 12 lead EKG Vent. Rate : 061 BPM Atrial Rate : 061 BPM P-R Int : 152 ms QRS Dur : 086 ms QT Int : 366 ms P-R-T Axes : 072 023 029 degrees QTc Int : 368 ms Normal sinus rhythm Normal ECG When compared with ECG of 30-MAY-2019 17:28, No significant change was found Airway Mallampati Class: II TM Dist: >3cm Neck ROM: Full (H/o cervical surgery but extension ok) Loose/Missing/Broken Teeth: Yes (Missing tooth bottom left back. Denies broken or loose teeth) Heart: RRR Lungs: CTAB Assessment and Plan Assessment Anesthesia Assessment: Anesthesia Plan Discussed and Chart Reviewed Final Anesthetic Review Family History of Problems with Anesthesia: No History of Problems with Anesthesia: No NPO: Yes ASA Class: II Final Preanesthetic Review: No Changes in Pt Med Stat, Meds/Allgs Chart Reviewed, Consent Obtained/Reviewed and Anes Risks/Benef Reviewed Patient Risk: Low Procedure Risk: Intermediate Assessment/Block/Sedation in SS: Assess/Block/Sedation-SS Anesthetic Plan Anesthetic Plan: GA Disposition: Standard PACU
[2023-04-12] VITALS (17 sets, daily range): BP systolic 102–126; BP diastolic 48–79; PULSE 51–80; RESP 12–23; TEMP 36.1–36.3; O2SAT 96–100
--- NOTE | ~2023-04-12 | FL_ITS ---
EXAMINATION: XR FLUOROSCOPY WITH IMAGES IN OPERATING ROOM CLINICAL INFORMATION: C6-C7 anterior cervical discectomy with fusion COMPARISON: None available. TECHNIQUE: Fluoroscopy Supervised By: Dr. Peoples. Fluoroscopy Time: 8 seconds. Cumulative Dose: 4.0302 mGy. DAP: 1.0765 Gycm2. Images: 2. FINDINGS: AP and lateral fluoroscopic views of the cervical spine demonstrate anterior plate with intervertebral screws at C6-C7. An endotracheal tube is in place. FL/FL guidance in OR IMPRESSION: Fluoroscopy for anterior cervical discectomy with fusion.
--- NOTE | 2023-04-12 07:26 | MHC.SHP ---
Pre-Procedural Eval Section A - 24 Hr Update-Section A only Date of Service: 04/12/23 The patient is an INPATIENT: No Changes since office visit: No Cold of Flu in the past 2 weeks, No New Medical Problems, No Changes in Medication and No Patient answered all questions The patient has been examined within 24 hours of the surgical procedure. The History & Physical has been completed within 30 days and I have reviewed it.: No Section B - Complete if H&P > 30 days Chief Complaint: Radiculopathy, cervical region Allergies: Allergies Allergy/AdvReac Type Severity Reaction Status Date / Time alcohol [ALCOHOL] Allergy Severe Anaphylaxis Verified 04/11/23 10:27 oxycodone [From PERCOCET] Allergy Severe TACHYCARDIA,SHAKING, Verified 04/11/23 10:27 itching aspirin AdvReac Intermediate Nose Bleed Verified 04/11/23 10:27 ibuprofen [IBUPROFEN] AdvReac Intermediate Nose Bleed Verified 04/11/23 10:27 Beer/ wine Allergy Severe anaphylaxis Uncoded 04/11/23 10:27 Review of Systems Sugical H&P ROS: Negative: Constitution, Cardiovascular, Respiratory, Neurological, Psychiatric, Hem-Onc, Allergic/Immunologic, Gastrointestinal, Genitourinary, Musculoskeletal, Integumentary, Endocrine and Eyes/Ears/Nose/Throat Exam Surgical H&P Exam: Not Evaluated: HEENT, Not Evaluated: Heart, Not Evaluated: Lungs, Not Evaluated: Extremities, Not Evaluated: Abdomen, Not Evaluated: Skin and Not Evaluated: Neurological Plan Diagnosis/Plan: Unchanged C6-7 ACDF Time Spent With Patient Time: Total time managing care of this patient today __7__ minutes.
--- NOTE | 2023-04-12 08:31 | ECG_ITS ---
Test Reason : preop Blood Pressure : / mmHG Vent. Rate : 061 BPM Atrial Rate : 061 BPM P-R Int : 152 ms QRS Dur : 086 ms QT Int : 366 ms P-R-T Axes : 072 023 029 degrees QTc Int : 368 ms Normal sinus rhythm Normal ECG When compared with ECG of 30-MAY-2019 17:28, No significant change was found Referred By: Gini Koenig Electronically Signed By:Garett Rojas
[2023-04-12] MEDS: methocarbamoL 750 MG TABLET PO (08:45)
[2023-04-12] MEDS: Gabapentin 300 MG CAPSULE PO (08:45)
[2023-04-12] MEDS: Lactated Ringers 1,000 ML 100 ML IVCONT (09:01)
--- NOTE | 2023-04-12 13:21 | P.OP_ITS ---
Operative Note Operative Note Date of Service: 04/12/23 Narrative: Preoperative Diagnosis: Cervical radiculopathy Procedure: C6-7 Anterior discectomy, arthrodesis and implantation cage ; C6-7 anterior instrumentation ; local autograft; microscope Informed Consent was obtained for this operation. I have explained the nature, purpose and benefits of the operation. I have discussed the risks and benefit of the operation including possible complications or adverse events with patient/f amily. Alternative(s) were discussed with the patient with their relative benefits and risks as well as the consequences of not accepting the operation were included in obtaining consent. Surgeon: SUKHDEEP LOONEY MD, PHD Procedure Assisted By: Lars Meredith Description of Procedure: This 61-year-old male had a previous fusion done C5-C6 and another institution. He continues to complain of right cervical radiculopathy. The adjacent level shows significant degenerative disc disease therefore was offered a fusion of C6-7. The procedure complications were explained. The patient was consented. The patient was brought to the operating room and endotracheally intubated. The patient was put in supine position with slight extension of the neck. Prep and drape was done followed by timeout. A mid cervical incision was made followed by opening of the platysma. The prevertebral fascia was reached following the natural planes while the physician assistant professor of surgery provided manual retraction. The pre vertebral fascia was opened to expose the disc space. A spinal needle was placed in the disk space to confirm the correct level with xray. The longus colli muscles were released bilaterally and a self retaining retractor was inserted. Two [place] pins were placed in the C6-7 vertebral bodies and distraction was give over the interspace. The discectomy was completed toward the posterior annulus of the disc. The microscope was brought in. of the discectomy was completed. The posterior ligament was opened and resected to expose the underlying dura. Osteophytes were resected from the body of C6 and C7 and saved for autograft. Bilateral foraminotomies were done. The endplates were prepared after which a 6 mm cage filled with autograft was inserted into the disc space. A separate attached plate was locked down with 2 x 14 mm screws as anterior instrumentation. Final x-rays in AP and lateral projection showed a satisfactory position of the implant. The physician assistant professor of surgery took over. The [place] pin was removed. Hemostasis was done. He closed the incision in 2 layers with a 3-0 Vicryl. Steri-Strips used to approximate incision. An OpSite with Tegaderm was used to cover the incision. All sponge and needle counts were correct. Patient was extubated and transported in stable is to recovery room. Anesthesia: General Estimated Blood Loss (ml): 10 Duration of Surgery: 50 minutes Postoperative Plan: Discharge home Complications: None
--- NOTE | 2023-04-12 13:25 | P.DS_ITS ---
DS: Providers Provider Date of Service: 04/12/23 Primary care physician: Levy Whitney MD DS: Summary Time Attestation Discharge Coordination Time (in mins): 10 Quality: Safe Use of Opioids Does Pt have an Active Cancer Diagnosis on the Problem List?: No Quality: Stroke Does the patient have a stroke diagnosis?: No Physical Exam Vital Signs: Vital Signs: Last Vital Signs Temp 96.9 F 04/12/23 08:41 Pulse 70 04/12/23 08:41 Resp 20 04/12/23 08:41 BP 116/71 04/12/23 08:41 Pulse Ox 98 04/12/23 08:41 O2 Del Method Room Air 04/12/23 08:41 BMI result Body Mass Index 26.6 Discharge Plan Discharge Patient Disposition: Home, Self-Care Referrals: Levy Whitney MD [Primary Care Provider] - 1 Week Discharge Medications: New hydrocodone-acetaminophen 5-325 mg tablet 1 tab PO Q6H PRN (Reason: severe pain (scale score 7-10)) Qty: 30 0RF Rx Instructions: Partial Fill upon patient request. Continued vilazodone 10 mg tablet 10 mg PO DAILY pantoprazole 20 mg Tablet,Delayed Release (Dr/Ec) 20 mg PO DAILY PRN (Reason: Gastric Reflux) Discharge Orders: Discharge Order (Routine); Ordered 04/12/23 Ordered By: Lars Meredith Diet: Advance to usual diet Activity on Discharge: As tolerated Activity Restrictions/Additional Instructions: After your spinal surgery we ask you to observe the following restrictions/guidelines: Activity: With lumbar fusion surgery it is normal to have days in the first couple of wee ks where you have increased leg pain. This usually lasts 1-2 days and self resolves with the continuation of medication. Attempt to stay mobile and continue activity as tolerated. It is normal to feel some discomfort as you increase your activity, but that will improve with time. We ask you avoid heavy lifting or activities that cause pain. As a general rule, 8lbs is a safe limit for lifting right after surgery. Walk as much as you feel comfortable but not to exhaustion. You will feel extra tired the first few days after surgery. Stay well hydrated. It is OK to walk up and down stairs You may return to driving when you are off narcotics (such as vicodin, oxycodone, dilaudid, etc), and you are back to normal functional capacity. If you have any concerns please check with office before driving. Return to work is specific to each patient and each surgery, so please speak with your doctor/PA at first follow up. Please bring paperwork such as FMLA at that time if you need it filled out. Medications: It is recommended that you take Tylenol 500 mg every 6 hours for the 1st week postoperatively, alongside ibuprofen 600 mg every 8 hours. We will give you a short supply of narcotics after surgery (usually one weeks worth). Please use this for breakthrough pain that is refractory to the Tylenol & ibuprofen. If you need more please call the office but do not use more than prescribed. You will need to give our office 48 hours notice if you need narcotics refilled and we do not fill narcotics on weekends or evenings. If you are on a narcotic, it is a good idea to take a stool softener such as colace or senna to avoid constipation If you take blood thinner such as aspirin, Plavix, Coumadin, Effient, Eliquis etc for conditions such as Afib, DVT, Pulmonary embolus, coronary disease, stents etc please speak with your surgeon about specific details as to when you can resume these medications. You can resume NSAIDs on post op day 1 (eg: Motrin, Naproxen, etc). Follow up: Please call the office, , after surgery to arrange a 3 week follow up for wound check. Wound Care: You may remove your dressing on the first day after surgery. You may leave open to air. Please do not remove the steri strips underneath. they will fall off on their own in one week. IT IS NORMAL FOR THE WOUND TO OOZE OR BE BLOODY FOR A FEW DAYS AFTER SURGERY. IF THIS HAPPENS JUST PLACE NEW DRESSING OVER IT TO AVOID STAINING CLOTHES. You may shower on post op day # 1 We ask that you do not let the water soak the wound. If it does get wet, just towel dry lightly. Please do not scrub your incision or place any type of chemical/ointment on the wound. No tub baths, pools or jacuzzis for one month. If you have any leaking or redness from your wound, or fevers, please call office
[2023-04-12] MEDS: fentaNYL citrate/PF 100 MCG/2 ML VIAL 25 MCG IVPUSH ×4 (13:45→14:00)
[2023-04-12] MEDS: HYDROmorphone HCl 0.5 MG/0.5 ML SYRINGE 0.25 MG IVPUSH ×3 (14:05→14:30)
[2023-04-12] MEDS: Ondansetron ODT 4 MG TAB.RAPDIS TRANSLINGU (15:53)
== END 2023-04-12 15:54 | disposition home or self-care (01) ==
PROVIDERS: PCP Internal Medicine; Visit Provider Neurological Surgery
PROC: (CPT 22551; principal; 2023-04-12 11:40)
DX: M54.12 Radiculopathy, cervical region (principal); G43.909 Migraine, unspecified, not intractable, without status migrainosus; F32.A Depression, unspecified; Z79.899 Other long term (current) drug therapy; Z98.1 Arthrodesis status; Z98.890 Other specified postprocedural states; Z88.8 Allergy status to other drugs, medicaments and biological substances; Z88.5 Allergy status to narcotic agent
CPT/HCPCS: 22551; 22853; 20936; 22845; 93005; C1713; J0131; J0690; J1100; J1170; J2250; J2405; J2704; J3010

== ENCOUNTER → 2023-04-12 08:16 | Outpatient (BNV) | payer OTHER, SELFPAY | PROVIDERS: PCP Internal Medicine; Visit Provider Neurological Surgery | DX: M54.12 Radiculopathy, cervical region (principal) | CPT/HCPCS: 20936; 22551; 22845; 22853; 99499 ==

== ENCOUNTER → 2023-04-12 08:31 | Outpatient (BNV) | payer OTHER, SELFPAY | PROVIDERS: PCP Internal Medicine; Visit Provider Internal Medicine Cardiovascular Disease | DX: M54.12 Radiculopathy, cervical region (principal); Z01.810 Encounter for preprocedural cardiovascular examination | CPT/HCPCS: 93010 ==

== ENCOUNTER 2023-05-03 10:41 | Outpatient (AMB) | payer OTHER, SELFPAY ==
--- NOTE | 2023-05-03 10:50 | A.SPINEOV_ITS ---
Intake Intake Visit Reasons: 1st post op Intake Note: Mr. Negron is here today for 1st post op Shake Splitter Required: No Allergies alcohol [ALCOHOL] Allergy (Severe, Verified 04/11/23 10:27) Anaphylaxis oxycodone [From PERCOCET] Allergy (Severe, Verified 04/11/23 10:27) TACHYCARDIA,SHAKING, itching aspirin Adverse Reaction (Intermediate, Verified 04/11/23 10:27) Nose Bleed ibuprofen [IBUPROFEN] Adverse Reaction (Intermediate, Verified 04/11/23 10:27) Nose Bleed Beer/ wine Allergy (Severe, Uncoded 04/11/23 10:27) anaphylaxis Opiates Allergy (Intermediate, Uncoded 04/13/23 09:32) Shaking / Nausea / Vomiting Do you need a note to return to daycare/school/sports/work: No Assessment & Plan Assessment & Plan (1) History of spinal surgery: Comment: C6-7 ACDF Code(s): Z98.890 - Other specified postprocedural states Plan Procedure: C6-7 ACDF Narendra comes in today for his 1st postoperative visit. He reports he is satisfied with the surgery and feels better than he did pre-operatively. He does still have intermittent pains that shoot into his bilateral arms, but reports that these are largely positional. He does state that postoperatively he had quite a bit of difficulty with pain control, but thankfully it has largely subsided now. He only has very minimal pains, and has a very good attitude about it stating that he understands it is likely due to the inflammation from surgery. He has not currently taking any medications to help manage the pain, and denied want/need for additional medications. No new neurological deficits. Patient is able to ambulate well, rises from a seated position without difficulty. Incision sites are closed, well healing, with no signs of drainage. We will follow-up with the patient in 6 weeks for his 2nd postoperative visit. At that time we will get x-rays to review with the patient. Lars Peoples MD,PhD [facility] Coding Level of Care Code Global (12010) Diagnoses History of spinal surgery Z98.890
== END 2023-05-03 11:05 | disposition home or self-care (01) ==
PROVIDERS: PCP Internal Medicine; Visit Provider Physician Assistant
DX: Z98.890 Other specified postprocedural states (principal)
CPT/HCPCS: 99024

== ENCOUNTER → 2023-05-03 10:41 | Outpatient (BNVA) | payer OTHER, SELFPAY | PROVIDERS: PCP Internal Medicine; Visit Provider Physician Assistant | DX: Z51.89 Encounter for other specified aftercare (principal); Z98.890 Other specified postprocedural states | CPT/HCPCS: 99212 ==

== ENCOUNTER 2023-06-14 08:56 | Outpatient (REF) | payer OTHER, SELFPAY ==
--- NOTE | ~2023-06-14 | XR_ITS ---
EXAMINATION: XR CERVICAL SPINE CLINICAL INFORMATION: Spondylosis without myelopathy or radiculopathy cervical region. COMPARISON: Fluoroscopy in OR images of April 19, 2023, x-ray 11/20/2022. TECHNIQUE: 4 views of the cervical spine inclusive of flexion and extension views. FINDINGS: Redemonstration of anterior plate with intervertebral screws at C5-C6. Redemonstration of disc fusion hardware at C6-C7. Hardware appears intact. Moderate degenerative changes with loss of disc space height at C3-C4 and C4-C5. Minimal anterolisthesis of C6 on C7 with flexion reduces with extension. XR/XR cervical spine 4V IMPRESSION: 1. Redemonstration of anterior plate with intervertebral screws at C5-C6. Redemonstration of disc fusion hardware at C6-C7. Hardware appears intact. 2. Moderate degenerative changes with loss of disc space height at C3-C4 and C4-C5. 3. Minimal anterolisthesis of C6 on C7 with flexion reduces with extension.
== END 2023-06-14 08:57 | disposition home or self-care (01) ==
LOC: HO.HOSX 08:56
PROVIDERS: Visit Provider Physician Assistant
DX: Z48.89 Encounter for other specified surgical aftercare (principal); M47.812 Spondylosis without myelopathy or radiculopathy, cervical region
CPT/HCPCS: 72050; 99212

== ENCOUNTER 2023-06-14 09:25 | Outpatient (AMB) | payer OTHER, SELFPAY ==
--- NOTE | 2023-06-14 09:27 | HO.SPINEOV ---
Intake Visit Reasons: 2nd post op with xrays Intake Note: Mr. Negron is here today for his 2nd post-op appointment with x-rays. Sausage Maker Required: No Allergies alcohol [ALCOHOL] Allergy (Severe, Verified 06/14/23 09:43) Anaphylaxis oxycodone [From PERCOCET] Allergy (Severe, Verified 06/14/23 09:43) TACHYCARDIA,SHAKING, itching aspirin Adverse Reaction (Intermediate, Verified 06/14/23 09:43) Nose Bleed ibuprofen [IBUPROFEN] Adverse Reaction (Intermediate, Verified 06/14/23 09:43) Nose Bleed Beer/ wine Allergy (Severe, Uncoded 04/11/23 10:27) anaphylaxis Opiates Allergy (Intermediate, Uncoded 04/13/23 09:32) Shaking / Nausea / Vomiting Assessment & Plan Assessment & Plan (1) History of spinal surgery: Comment: C6-7 ACDF Code(s): Z98.890 - Other specified postprocedural states Category: Surgical Plan Procedure: C6-7 ACDF Narendra comes in today for his 2nd postoperative visit. He reports that he continues to heal well and that much of his radicular symptoms have subsided. 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 He states that this comes and goes and he is unsure when it began. Other than that he is doing very well and only continues to have some very slight tenderness in his posterior neck, which we discussed is common from this surgery. We reviewed his cervical spine x-rays today in office which shows stable placement of a surgical construct with no changes from fluoroscopy. He has full strength in his bilateral upper extremities, his reflexes are 2+ intact without hyperreflexia, and he has (-) bilateral Kendall's. His incision site is fully healed. Due to some of his continued postoperative issues, I would like to send him for a course of physical therapy then see him back in the office to evaluate if any of his symptoms have begun to resolve. His exam in office today is reassuring. I think physical therapy and the tincture of time will likely resolve his issues. Lars Peoples MD,PhD [facility] Orders: Orders XR cervical spine 4V Today M47.812 - Spondylosis without myelopathy or radiculopathy, cervical region PT Evaluation and Treatment Today Z98.890 - Other specified postprocedural states Coding Level of Care Code Global (42976) Diagnoses History of spinal surgery Z98.890
== END 2023-06-14 10:01 | disposition home or self-care (01) ==
PROVIDERS: PCP Internal Medicine; Visit Provider Physician Assistant
DX: Z98.890 Other specified postprocedural states (principal)
CPT/HCPCS: 99024

== ENCOUNTER 2023-07-26 08:44 | Outpatient (AMB) | payer OTHER, SELFPAY ==
--- NOTE | 2023-07-26 08:46 | A.SPINEOV_ITS ---
Intake Visit Reasons: 6 week f/u Intake Note: Mr. Negron is here today for a 6 week f/u. Battery Container Tester Required: No Allergies alcohol [ALCOHOL] Allergy (Severe, Verified 07/26/23 08:57) Anaphylaxis oxycodone [From PERCOCET] Allergy (Severe, Verified 07/26/23 08:57) TACHYCARDIA,SHAKING, itching aspirin Adverse Reaction (Intermediate, Verified 07/26/23 08:57) Nose Bleed ibuprofen [IBUPROFEN] Adverse Reaction (Intermediate, Verified 07/26/23 08:57) Nose Bleed Beer/ wine Allergy (Severe, Uncoded 04/11/23 10:27) anaphylaxis Opiates Allergy (Intermediate, Uncoded 04/13/23 09:32) Shaking / Nausea / Vomiting Assessment & Plan Assessment & Plan (1) History of spinal surgery: Comment: C6-7 ACDF Code(s): Z98.890 - Other specified postprocedural states Category: Medical Plan Narendra comes in today for a subsequent follow-up visit after being established with physical therapy and engaging in the services for the last few weeks. He reports notable progress with physical therapy. He states his baseline strength has improved with the exercises they have been teaching him. He still feels subjectively that his R side is stronger than his left. 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 I am hopeful that this too will continue to improve with time as he heals from the surgery. Narendra is encouraged to continue following up with the physical therapy and to complete the full course. I answered all of his questions to the best of my ability. I encouraged him to follow up with us in the next 6 months or so if he feels his symptoms have not continue to get better. Lars Peoples MD,PhD [facility] Coding Level of Care Code Global (70537) Diagnoses History of spinal surgery Z98.890
== END 2023-07-26 09:10 | disposition home or self-care (01) ==
PROVIDERS: PCP Internal Medicine; Visit Provider Physician Assistant
DX: Z98.890 Other specified postprocedural states (principal)
CPT/HCPCS: 99024

== ENCOUNTER → 2023-07-26 08:44 | Outpatient (BNVA) | payer OTHER, SELFPAY | PROVIDERS: PCP Internal Medicine; Visit Provider Physician Assistant | DX: Z98.890 Other specified postprocedural states (principal) | CPT/HCPCS: 99212 ==

== ENCOUNTER 2023-08-07 09:00 | Outpatient (RCR) | payer OTHER, SELFPAY ==
--- NOTE | 2023-07-03 12:00 | MHC.PT.EP ---
[facility] [place] Office [place] Office [place] Office [address] Beltran Delgadillo [address] [phone] F: [phone] F: [phone] F: [phone] F: [phone] Physical Therapy Plan of Care Date of Evaluation: 07/03/23 Date of Surgery: 04/12/23 Diagnosis: C6-7 ACDF please evaluate for gentle ROM, strength training, and UE dexterity Assessment: 37 y/o L-hand dominant male is s/p C6-7 ACDF on 04/12/23. Of note, he has had previous cervical surgery for C5-6, lumbar fusion, R wrist surgery with screws. Currently reports pain with sleeping, lifting, grasping, and states his hands shakes when he holds things. Of note, he mentions he will crack his neck often as it reduces pressure; educated pt on cervical fusion and precautions as well as not cracking spine. Examination shows slightly limited cervical ROM, decreased scapular/wrist strength, normal reflexes, some intermittent B hand tremors with reaching, ulnar and median neural tension R UE, increased muscle spasm and poor postural awareness. Recommend PT 2x/week for 5 weeks to address impairments, implement HEP, and optimize functional mobility. Frequency and Duration: The patient will be seen 2x/week for 5 weeks Short Term Goals: 3 weeks I with HEP Pt will be compliant with lumbar roll and seated posture Caddymaster Goals: 5 weeks I with HEP and self management of sx Improve NDI to 12/50 (IR 22/50) Pt will be able to sleep through the night with pain < 3/10 Treatment Plan: Modalities to reduce pain, spasms and effusion. Manual therapy to restore motion and function. Therapeutic exercise to improve strength and flexibility. Neuromuscular re-education for posture and balance. Therapeutic activities to return to functional activities of daily living. Electronically signed by: Patricia Ordoñez PT Please sign and return to therapist. Thank you for your referral.
--- NOTE | 2023-08-08 12:46 | MHC.PT.DC ---
[facility] [place] Office [place] Office [place] Office [address] Beltran Delgadillo [address] [facility] [phone] F: [phone] F: [phone] F: [phone] F: [phone] Physical Therapy Discharge Report Diagnosis: C6-7 ACDF please evaluate for gentle ROM, strength training, and UE dexterity Date of Surgery: 04/12/23 Date of Evaluation: 07/03/23 Date of Discharge: 08/08/23 Treatments to Date: 9 Cancellations to Date: 0 No Shows to Date: 0 Discharge Status: Achieved Goals Improved Function Independent with HEP Discharge Summary: Pt has met all goals at this time and demonstrates significant improvement in posture and mechanics with exercises. NDI 14/50. Has a good understanding and compliance with HEP as well. Electronically signed by: Patricia Ordoñez PT Please sign and return to therapist. Thank you for your referral.
== END 2023-08-08 12:47 | disposition home or self-care (01) ==
LOC: HO.PT 09:00
PROVIDERS: PCP Internal Medicine; Visit Provider Physician Assistant
DX: Z98.890 Other specified postprocedural states (principal)
CPT/HCPCS: 97110; 97161

== ENCOUNTER 2023-08-07 16:16 | Outpatient (REF) | payer OTHER, SELFPAY ==
[2023-08-07 16:35] LABS: MANUAL DIFF FLAG NO
[2023-08-07 17:16] LABS: Basophils Percent Auto 0.4 % (0-2); Eosinophils Absolute Auto 0.2 X10*3/uL (0.0-0.4); Eosinophils Percent Auto 1.8 % (0-4); Hematocrit 41.5 % (42.0-52.0); Imm Gran Abs Auto 0.04 X10*3/uL (0.00-0.03); Imm Gran Pct Auto 0.4 % (0.0-0.4); Lymphocytes Absolute Auto 2.4 X10*3/uL (1.2-4.9); Mean Corpuscular HGB Conc 33.7 g/dl (31.0-36.0); Mean Corpuscular Hemoglobin 30.2 pg (27.0-33.0); Mean Corpuscular Volume 89.6 fL (80.0-98.0); Mean Platelet Volume 11.7 fL (9.4-12.4); Monocytes Absolute Auto 0.6 X10*3/uL (0.1-1.2); Monocytes Percent Auto 5.6 % (2-11); Neutrophils Absolute Auto 6.8 x10*3/uL (2.0-8.3); Neutrophils Percent Auto 67.8 % (45-73); Platelet Count 187 X10*3/uL (160-400); Red Blood Count 4.63 X10*6/uL (4.60-5.80); Red Cell Distribution Width 12.9 % (11.0-16.0); White Blood Count 10.1 X10*3/uL (4.8-10.8)
[2023-08-07 17:45] LABS: Alanine Aminotransferase 23 U/L (0-40); Alkaline Phosphatase 104 U/L (39-117); Anion Gap 11 (12-20); Aspartate Amino Transferase 20 U/L (5-37); Bilirubin Total 0.3 mg/dL (0.0-1.0); Blood Urea Nitrogen 18 mg/dL (9-16); Calcium 9.2 mg/dL (8.4-10.2); Carbon Dioxide 27 mmol/L (22-29); Chloride 107 mmol/L (96-108); Estimated Glomerular Filt Rate > 60; Glucose Random 99 mg/dL (60-115); Potassium 4.5 mmol/L (3.3-5.1); Sodium 140 mmol/L (135-145); Total Protein 6.8 g/dL (6.5-8.0)
[2023-08-07 18:03] LABS: Thyroid Stimulating Hormone 1.63 uIU/mL (0.32-4.0)
== END 2023-08-07 16:17 | disposition home or self-care (01) ==
LOC: HO.LAB 16:16
PROVIDERS: PCP Internal Medicine; Visit Provider Internal Medicine
DX: R00.2 Palpitations (principal); R03.1 Nonspecific low blood-pressure reading; R42 Dizziness and giddiness
CPT/HCPCS: 36415; 80053; 84443; 85025; 86140

== ENCOUNTER 2023-08-29 15:55 | Outpatient (REF) | payer OTHER, SELFPAY ==
--- NOTE | ~2023-08-29 | XR_ITS ---
EXAMINATION: XR HAND, RIGHT CLINICAL INFORMATION: Right hand pain, attention third finger COMPARISON: None available. TECHNIQUE: PA, lateral, and oblique views of the right hand. FINDINGS: There is a comminuted and mildly displaced fracture of the distal phalanx of the third digit. There is fairly extensive postsurgical changes in the wrist with carpal fusion. The scaphoid appears to be surgically resected. No foreign body. XR/XR hand RT min 3V IMPRESSION: 1. Comminuted and mildly displaced fracture of the distal phalanx of the third digit. 2. Extensive postsurgical changes in the wrist.
== END 2023-08-29 15:56 | disposition home or self-care (01) ==
LOC: HO.XRAY 15:55
PROVIDERS: PCP Internal Medicine; Visit Provider Internal Medicine
DX: M79.641 Pain in right hand (principal)
CPT/HCPCS: 73130

== ENCOUNTER 2023-09-07 09:26 | Outpatient (REF) | payer OTHER, SELFPAY ==
--- NOTE | ~2023-09-07 | CT_ITS ---
EXAMINATION: CT HEAD WITHOUT CONTRAST CLINICAL INFORMATION: Weakness. Head pressure. COMPARISON: Brain MRI from 03/01/2020. TECHNIQUE: Contiguous axial imaging was performed from the skull base to vertex without intravenous administration of contrast. This CT examination was performed using dose optimization techniques as appropriate, variously including the following: *Automated exposure control. *Adjustment of mA and/or kV according to patient size (this includes techniques or standardized protocols for targeted exams where dose is matched to indication/reason for exam; i.e. extremities or head). *Use of iterative reconstruction technique. DLP: 888 mGy-cm FINDINGS: There is no evidence of acute intracranial hemorrhage or edematous territorial infarction. Nielson-white matter differentiation is preserved. There is no abnormal attenuation within the brain parenchyma. The ventricles are normal in morphology and size. No evidence for obstructive hydrocephalus. The suprasellar cistern remains widely patent. Normal positioning of the cerebellar tonsils. No abnormal mass effect or midline shift. No extra-axial fluid collections. No acute soft tissue or osseous abnormalities. Mild mucosal thickening of the paranasal sinuses. Widely patent secondary ostia of the maxillary sinuses leading to the middle meati. Mild rightward nasal septal deviation. The mastoid air cells and middle ear cavities are clear. CT/CT head/brain wo IV con IMPRESSION: No evidence of acute intracranial hemorrhage or edematous territorial infarction.
== END 2023-09-07 09:27 | disposition home or self-care (01) ==
LOC: HO.CT 09:26
PROVIDERS: Visit Provider Internal Medicine
DX: R68.89 Other general symptoms and signs (principal); R53.1 Weakness
CPT/HCPCS: 70450

== ENCOUNTER 2023-11-27 14:46 | Outpatient (AMB) | payer OTHER, SELFPAY ==
--- NOTE | 2023-11-27 14:51 | A.SPINEOV_ITS ---
Intake Visit Reasons: Back pain Intake Note: Mr. Negron is here today c/o low back pain. Garnetter Required: No Allergies alcohol [ALCOHOL] Allergy (Severe, Verified 07/26/23 08:57) Anaphylaxis oxycodone [From PERCOCET] Allergy (Severe, Verified 07/26/23 08:57) TACHYCARDIA,SHAKING, itching aspirin Adverse Reaction (Intermediate, Verified 07/26/23 08:57) Nose Bleed ibuprofen [IBUPROFEN] Adverse Reaction (Intermediate, Verified 07/26/23 08:57) Nose Bleed Beer/ wine Allergy (Severe, Uncoded 04/11/23 10:27) anaphylaxis Opiates Allergy (Intermediate, Uncoded 04/13/23 09:32) Shaking / Nausea / Vomiting Assessment & Plan Assessment & Plan (1) Lumbar radiculopathy: Code(s): M54.16 - Radiculopathy, lumbar region Category: Medical Plan: HPI: Narendra is a pleasant 38-year-old male who is known to our service and had a C6-7 ACDF completed in April 2023. He reports that he has healed well from his previous cervical spine surgery, however is having quite a bit of back pain. He reports a pertinent past medical history of a L5-S1 ALIF completed by Dr. Pires at [facility]. In addition to his low back pain he was having a shooting radicular pain down his left lower extremity. When describing the pain he states it starts in his low back shoots over his left lateral hip down the lateral aspect of his entire left leg terminating near the calf. He does endorse some tingling associated with this pain. He has been trying ove [id number] Tylenol/ibuprofen and other pain control methods without significant relief of symptoms. He has not yet attempted physical therapy or injections in an effort to mitigate this pain. No issues with hypoesthesia near the groin / perineum. No issues with bowel/bladder incontinence. Medications: He reports no changes in his medications from what we have on rec ord. Exam: On examination, Narendra has 5/5 strength in his upper and lower extremities. His reflexes are 2+ intact. He has no significant sensational deficits. (-) bilateral straight leg raise. He ambulates well and rises from a seated position without difficulty. Impression / Plan: I would like to send Narendra for a set of lumbar spine x-rays to ensure there is no issues with his previous instrumentation that he had completed by his last lumbar spine surgeon. Assuming that these are unremarkable, I would like to send the patient for a course of physical therapy to see if he is able to help mitigate his symptoms further with the additional conservative treatments. I will see Narendra back in the office after he is able to complete physical therapy. We will likely discuss the possibility of a lumbar MRI if his radiculopathy continues to persist. Lars Peoples MD,PhD [facility] Plan Narendra is a pleasant Orders: Orders PT Evaluation and Treatment Today M54.16 - Radiculopathy, lumbar region XR lumbar spine 4V min Today M54.16 - Radiculopathy, lumbar region Coding Level of Care Code Est Pt Level 3 (41751) Diagnoses Lumbar radiculopathy M54.16
== END 2023-11-27 15:24 | disposition home or self-care (01) ==
PROVIDERS: PCP Internal Medicine; Visit Provider Physician Assistant
DX: M54.16 Radiculopathy, lumbar region (principal)
CPT/HCPCS: 99213

== ENCOUNTER 2023-11-27 14:46 | Outpatient (REF) | payer OTHER, SELFPAY ==
--- NOTE | ~2023-11-27 | XR_ITS ---
EXAMINATION: XR LUMBAR SPINE CLINICAL INFORMATION: Radiculopathy lumbar region. COMPARISON: MR lumbar spine 09/16/2021. TECHNIQUE: 4 views of the lumbar spine inclusive of flexion and extension views. FINDINGS: Dextroscoliosis of the lumbar spine. Facet arthritis in the lower lumbar spine. Postsurgical changes at L5-S1. Moderate multilevel spondylosis in the remainder of the lumbar spine. XR/XR lumbar spine 4V min IMPRESSION: Postsurgical changes at L5-S1. Moderate multilevel spondylosis in the remainder of the lumbar spine. Electronically signed by: Nina Woods MD 12/24/2023 03:32 PM EST
== END 2023-11-27 14:47 | disposition home or self-care (01) ==
LOC: HO.HOSX 14:46
PROVIDERS: PCP Internal Medicine; Visit Provider Physician Assistant
DX: M54.16 Radiculopathy, lumbar region (principal)
CPT/HCPCS: 72110; 99212

== ENCOUNTER 2024-01-16 09:37 | Outpatient (RCR) | payer OTHER, SELFPAY ==
--- NOTE | 2023-12-06 13:59 | MHC.PT.EP ---
[facility] [place] Office [place] Office [place] Office [address] Beltran Delgadillo [address] [phone] F: [phone] F: [phone] F: [phone] F: [phone] Physical Therapy Plan of Care Date of Evaluation: 12/06/23 Date of Surgery: 2019? Diagnosis: radiculopathy, lumbar region (RL) Assessment: pt is a 38 y/o male presenting to physical therapy w/ referring diagnosis of radiculopathy, lumbar region. Impairments include pain, decreased range of motion, decreased strength, impaired functional mobility, impaired postural awareness, and altered ambulation mechanics. pt is a good candidate for skilled PT due to age, potential remediation of impairments, typical disease/condition progression and prognosis, comorbidities, and motivation. pt would benefit from skilled PT intervention to provide a tailored strengthening and stretching exercise program, functional training, gait training, postural re-training, neuromuscular re-education, modalities as needed for pain, equipment safety demonstration. Frequency and Duration: The patient will be seen 2x/wk for 5 wks Short Term Goals: pt will be I w/ HEP to promote self-management of condition. pt will demo proper sitting posture w/ lumbar roll to promote neutral spine w/ seated ADLs. Scrap Worker Goals: pt will report a statistically significant improvement in self-reported outcome measure, Satnam, to promote return to PLOF. pt will lift 30# object from floor to chest height w/ proper lifting mechanics to promote return to heavy community facilitator. Treatment Plan: Modalities to reduce pain, spasms and effusion. Manual therapy to restore motion and function. Therapeutic exercise to improve strength and flexibility. Neuromuscular re-education for posture and balance. Therapeutic activities to return to functional activities of daily living. Electronically signed by: Dena Fitzgerald PT, DPT Please sign and return to therapist. Thank you for your referral.
--- NOTE | 2024-02-07 09:52 | MHC.PT.DC ---
[facility] [place] Office [place] Office [place] Office [address] Beltran Delgadillo [address] [phone] F: [phone] F: [phone] F: [phone] F: [phone] Physical Therapy Discharge Report Diagnosis: radiculopathy, lumbar region (RL) Date of Surgery: 2019? Date of Evaluation: 12/06/23 Date of Discharge: 02/07/24 Treatments to Date: 10 Cancellations to Date: 0 No Shows to Date: 0 Discharge Status: Visit Non-compliance Discharge Summary: Narendra was reporting overall the same levels of back pain but improved radicular pain at the time of his last visit. He was progressed with a hip mobility and core strengthening program to reduce stress on his lumbar spine. He had some poor posture habits including sacral sitting and poor lifting mechanics that he was educated on repeatedly. He never felt PT was going to help him and from the beginning was honest about wanting to pursue surgical intervention. He no showed/cancelled his last two appointments so he is discharged from this physical therapy plan of care at this time. Electronically signed by: Dena Fitzgerald PT, DPT Please sign and return to therapist. Thank you for your referral.
== END 2024-02-07 09:53 | disposition home or self-care (01) ==
LOC: HO.PT 09:37
PROVIDERS: PCP Internal Medicine; Visit Provider Physician Assistant
DX: M54.16 Radiculopathy, lumbar region (principal)
CPT/HCPCS: 97110; 97112; 97140; 97162; 97530

== ENCOUNTER 2024-01-17 13:26 | Outpatient (AMB) | payer OTHER, SELFPAY ==
--- NOTE | 2024-01-17 15:03 | HO.SPINEOV ---
Intake Visit Reasons: follow up after PT Intake Note: Mr. Negron is here to F/u after PT. Public Health Doctor Required: No Allergies alcohol [ALCOHOL] Allergy (Severe, Verified 01/17/24 15:04) Anaphylaxis oxycodone [From PERCOCET] Allergy (Severe, Verified 01/17/24 15:04) TACHYCARDIA,SHAKING, itching aspirin Adverse Reaction (Intermediate, Verified 01/17/24 15:04) Nose Bleed ibuprofen [IBUPROFEN] Adverse Reaction (Intermediate, Verified 01/17/24 15:04) Nose Bleed Beer/ wine Allergy (Severe, Uncoded 04/11/23 10:27) anaphylaxis Opiates Allergy (Intermediate, Uncoded 04/13/23 09:32) Shaking / Nausea / Vomiting Assessment & Plan Assessment & Plan (1) Lumbar radiculopathy: Code(s): M54.16 - Radiculopathy, lumbar region Category: Medical Plan Mr Negron is here in follow-up. Completed his physical therapy trial and it only seems to make things worse. He still is taking mkie-yex-rotnonn medications like Tylenol as well as prescription gabapentin to help with the pain but it is not making his left leg pain feel any better. It seems to be shooting down into his left leg in L5 distribution. His x-rays show that he has good fusion at the L5-S1 interspace. There is a little bit of a curve to his spine that I think may be related to some asymmetrical degeneration of his L4-5 disc. I would like to get an MRI to look at this a little more thoroughly as he has in pain daily with back pain and leg pain. Total amount of time spent in this visit was 20 minutes in discussion of symptoms, lumbar x-ray imaging results and subsequent plan of care Neftali Peoples MD,PhD [facility] Orders: Orders MR lumbar spine wo con Today M54.16 - Radiculopathy, lumbar region Coding Level of Care Code Est Pt Level 3 (68622) Diagnoses Lumbar radiculopathy M54.16
== END 2024-01-18 08:41 | disposition home or self-care (01) ==
PROVIDERS: PCP Internal Medicine; Visit Provider Physician Assistant
DX: M54.16 Radiculopathy, lumbar region (principal)
CPT/HCPCS: 99213

== ENCOUNTER → 2024-01-17 13:26 | Outpatient (BNVA) | payer OTHER, SELFPAY | PROVIDERS: PCP Internal Medicine; Visit Provider Physician Assistant | DX: M54.16 Radiculopathy, lumbar region (principal) | CPT/HCPCS: 99212 ==

== ENCOUNTER → 2024-02-06 09:38 | Outpatient (BNV) | payer OTHER, SELFPAY | PROVIDERS: PCP Internal Medicine; Visit Provider Specialist | DX: M54.16 Radiculopathy, lumbar region (principal) | CPT/HCPCS: 72148 ==

== ENCOUNTER 2024-02-06 09:40 | Outpatient (REF) | payer OTHER, SELFPAY | END 2024-02-06 09:41 | disposition home or self-care (01) | LOC: HO.MRI 09:40 | PROVIDERS: PCP Internal Medicine; Visit Provider Physician Assistant | DX: M54.16 Radiculopathy, lumbar region (principal) | CPT/HCPCS: 72148 ==

== ENCOUNTER 2024-02-08 14:06 | Outpatient (AMB) | payer OTHER, SELFPAY ==
--- NOTE | 2024-02-08 14:48 | A.SPINEOV_ITS ---
Intake Visit Reasons: MRI f/up Intake Note: Mr. Negron is here today to F/u on the results to his MRI. Forming Department End Finder Required: No Allergies alcohol [ALCOHOL] Allergy (Severe, Verified 01/17/24 15:04) Anaphylaxis oxycodone [From PERCOCET] Allergy (Severe, Verified 01/17/24 15:04) TACHYCARDIA,SHAKING, itching aspirin Adverse Reaction (Intermediate, Verified 01/17/24 15:04) Nose Bleed ibuprofen [IBUPROFEN] Adverse Reaction (Intermediate, Verified 01/17/24 15:04) Nose Bleed Beer/ wine Allergy (Severe, Uncoded 04/11/23 10:27) anaphylaxis Opiates Allergy (Intermediate, Uncoded 04/13/23 09:32) Shaking / Nausea / Vomiting Assessment & Plan Assessment & Plan (1) Lumbar radiculopathy: Code(s): M54.16 - Radiculopathy, lumbar region Category: Medical Plan Mr Negron came back today to review his lumbar MRI. He had a previous anterior lumbar interbody fusion done by Dr. Dobson. The MRI looks perfect. The fusion looks solid on the x-ray and there is no evidence of any degenerative disc disease, abnormal alignment or degeneration anywhere in the lumbar spine. He has good disc height and there is no disc herniations or even disc bulges to report. 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 I am going to send him to to see if he would be a good candidate for .spinal cord stimulator. Total amount of time spent in this visit was 20 minutes in discussion of symptoms, lumbar MRI imaging results and subsequent plan of care Neftali Peoples MD,PhD [facility] Orders: Referrals Pain Management Referral M54.16 - Radiculopathy, lumbar region Coding Level of Care Code Est Pt Level 3 (69349) Diagnoses Lumbar radiculopathy M54.16
== END 2024-02-08 15:48 | disposition home or self-care (01) ==
PROVIDERS: PCP Internal Medicine; Visit Provider Physician Assistant
DX: M54.16 Radiculopathy, lumbar region (principal)
CPT/HCPCS: 99213

== ENCOUNTER → 2024-02-08 14:06 | Outpatient (BNVA) | payer OTHER, SELFPAY | PROVIDERS: PCP Internal Medicine; Visit Provider Physician Assistant | DX: M54.16 Radiculopathy, lumbar region (principal) | CPT/HCPCS: 99212 ==

== ENCOUNTER 2024-03-05 15:25 | Outpatient (REF) | payer OTHER, SELFPAY ==
--- NOTE | ~2024-03-05 | XR_ITS ---
EXAMINATION: XR CHEST CLINICAL INFORMATION: cough COMPARISON: None available. TECHNIQUE: 2 views of the chest were obtained. FINDINGS: No significant abnormality is noted involving the heart, lungs, mediastinum, bony thorax or soft tissues. XR/XR chest 2V IMPRESSION: Unremarkable chest examination. Electronically signed by: Elias Orozco MD 03/05/2024 04:06 PM [facility]
[2024-03-05 16:24] LABS: Influenza A PCR NEGATIVE (Negative); Influenza B PCR NEGATIVE (Negative); Resp Syncy Virus RNA Qual PCR POSITIVE (Negative); SARS COV2 PCR INHOUSE NEGATIVE (Negative)
--- OUTSIDE RECORDS SUMMARY | 2024-03-05 17:23 | XMS_ITS | Encounter Summary ---
Author Organization [employer] Address [address] [place] [address] Care Team Providers Care Remedial Masseur Name Role Phone Unavailable Primary Care Provider Unavailabl e Encounter Details Date Type Department Care Team (Late st Contact Info) Description 02/21/2024 Telephone [facility] ADULT DENTAL [address] [place] [address] Shanice Harman Social History Tobacco Use Types Packs/Day Years Used Date Smoking Tobacco: Never Smokeless Tobacco: Never Alcohol Use Standard Drinks/Week Comments Never 0 (1 standard drink = 0.6 oz pur e alcohol) Sex and Gender Information Value Date Recorded Sex Assigned at Male 12/05/2021 10:32 AM EDT Legal Sex Male 10:32 AM EDT Gender Identity Male 12/05/2021 10:32 AM EDT Sexual Orientation Straight 12/05/2021 10 :32 AM EDT documented as of this encounter Miscellaneous Notes * Telephone Encounter - Jagdish Cruz - 02/21/2024 2:22 PM EST Called patient to schedule a cleaning and exam appointment but there was no answer so I left a voicemail. documented in this encounter Plan of Treatment Not on file documented as of this encounter Visit Diagnoses Not on filedocumented in this encounter
--- OUTSIDE RECORDS SUMMARY | 2024-03-05 17:23 | XMS_ITS | Clinical Summary ---
Author Organization [employer] Address [address] [facility] 7[address] [place] [address] Care Team Providers Care Working Second Hand Name Role Phone Unavailable Primary Care Provider Unavailabl e Allergies Active Allergy Reactions Criticality Noted Date Comments Aspirin 10/04/2016 Other reaction(s): nose bleed Ethanol 11/26/2023 Other Reaction(s): trouble breathing - throat closes up Patient reports he has an allergy to alcohol that he drinks. ??Patient denies any allergy to rubbing alcohol or alcohol wipes. Ibuprofen 11/10/2016 Oxycodone 11/10/2016 Oxycodone-Acetaminophen 11/24/2021 Medications SUMAtriptan (Imitrex) 25 MG tablet Take 1 tablet by mouth. Active pantoprazole (ProtoNix) 20 MG EC tablet Take 2 tablets by mouth at bed time. Active gabapentin (Neurontin) 600 MG tablet 600 mg. 04/13/2023 Active Active Problems No known active problems Encounters Date Type Department Care Team Description 03/04/2024 Telephone [facility] ADULT DENTAL [address], [place] [phone] Francis Lozano, WENDI rs no show appt 02/21/2024 Telephone [facility] ADULT DENTAL [address], [place] [phone] Shanice Harman 12/24/2023 9:45 AM EST Office Visit [facility] OPTOMETRY [address] [place], [place] [phone] Aaron, Samantha, OD Myopic astigmatism of both eyes (Primary Dx) from Last 3 Months Social History Tobacco Use Types Packs/Day Years Used Date Smoking Tobacco: Never Smokeless Tobacco: Never Tobacco Cessation:Counseling Given: Not Answered Alcohol Use Standard Drinks/Week Comments Never 0 (1 standard drink = 0.6 oz pur e alcohol) Sex and Gender Information Value Date Recorded Sex Assigned at Male 12/05/2021 10:32 AM EDT Legal Sex Male 10:32 AM EDT Gender Identity Male 12/05/2021 10:32 AM EDT Sexual Orientation Straight 12/05/2021 10 :32 AM EDT Last Filed Vital Signs Vital Sign Reading Time Taken Comments Blood Pressure 122/76 08/07/2023 8:01 AM EDT Pulse - - Temperature - - Respiratory Rate - - Oxygen Saturation - - Inhaled Oxygen Concentration - - Weight - - Height - - Body Mass Index - - Plan of Treatment Health Maintenance Due Date Last Done Comments Dental Oral Exam 1986 Depression Screening 1986 HIV Screening 1986 Lipid Panel 1986 SDOH Screening 1986 Alcohol/Substance Use Screening 1998 Family Planning (PISQ) 2001 Hepatitis C Screening 2004 DTaP/Tdap/Td Vaccines (1 - Tdap) 2005 Hepatitis A Vaccines (1 of 2 - Risk 2-dose series) 2005 Hepatitis B Vaccines (1 of 3 - 19+ 3-dose series) 2005 COVID-19 Vaccine (2023-2 5 season) 2023 12/21/2021, 11/03/2020, 10/13/2020 Influenza Vaccine (#1) 2023 , 11/01/2016, 11/05/2015 Dental Prophylaxis 02/08/2024 08/07/2023 Dental X-Ray: Bitewings 08/07/2024 08/07/19 24, 03/16/2023 Tobacco Screening 11/25/2024 11/26/2023 Dental X-Ray: Full Mouth 08/07/2026 08/07/2023 Zoster Vaccines (1 of 2) 2036 RSV Patients and Patients Aged 60 years or older (1 - 1-dose 75+ series) 2061 HIB Vaccines Aged Out No longer eligi ble based on patient's age to complete this topic HPV Vaccines Aged Out No longer eligi ble based on patient's age to complete this topic IPV Vaccines Aged Out No longer eligi ble based on patient's age to complete this topic Meningococcal Vaccine Aged Out No cherrie kelley eligible based on patient's age to complete this topic Pneumococcal Vaccine: Pediatrics (0 to 5 Years) and At-Risk Patients (6 to 49) Years) Aged Out No longer eligible b ased on patient's age to complete this topic RSV under 20 months Aged Out No longe r eligible based on patient's age to complete this topic Rotavirus Vaccines Aged Out No longer eligible based on patient's age to complete this topic Procedures Procedure Name Priority Date/Time Associated Diagnosis Comments PROPHYLAXIS - ADULT Routine 08/07/2023 8 :00 AM EDT Dental plaque Dental calculus DIAGNOSTIC - DIAGNOSTIC IMAGING - INTRAORAL - COMPREHENSIVE SERIES OF RADIOGRAPHIC IMAGES Routine 08/07/2023 8:00 AM EDT from Last 3 Months or Most Recently Relevant to Health Maintenance Insurance [facility] MEDICAID STAND ADULT
--- OUTSIDE RECORDS SUMMARY | 2024-03-05 17:23 | XMS_ITS | Encounter Summary ---
Author Organization [employer] Address [address] [facility] 7t [place] [address] Care Team Providers Care Trimmer Loader Name Role Phone Samantha Walker OD Primary Care Provider [phone] Reason for Visit * Reason Onset Date Comments Appointment 04/03/2022 Encounter Details Date Type Department Care Team (Late st Contact Info) Description 04/03/2022 Telephone [facility] ADULT DENTAL [address], [place] [phone] Robin Lopez, DMD [address], [place] [phone] Appointment Social History Tobacco Use Types Packs/Day Years [...] Orientation Straight 12/05/2021 10 :32 AM EDT COVID-19 Exposure Response Date Recorded In the last 10 days, have yo u been in contact with someone who was confirmed or suspected to have Coronavirus/COVID-19? No / Unsure 03/20/2022 3:09 PM EST documented as of this encounter Miscellaneous Notes * Telephone Encounter - Mali Patel - 04/03/2022 1:27 PM EST Patient has an active request for Retreatment RCT. Patient informed that the appt has been requested and that he is on the waiting list. He states he was not infomred that there was waiting list. Patient officially informed today of waiting list. DR documented in this encounter Plan of Treatment Not on file documented as of this encounter Visit Diagnoses Not on filedocumented in this encounter Care Teams Trimmer Loader Relationship Specialty Start Date End Date Samantha Walker OD [address] [place] [id number] PCP - General Optometry 11/10/16 02/11/23 documented as of this encounter
--- OUTSIDE RECORDS SUMMARY | 2024-03-05 17:23 | XMS_ITS | Encounter Summary ---
Author Organization [employer] Address [address] [place] [address] Care Team Providers Care Contracting Support Specialist Name Role Phone AaronJonnn OD Primary Care Provider [phone] Encounter Details Date Type Department Care Team (Latest Contact Info) Description 12/10/2020 Abstract [facility] CONVERSIONS Dental, Provider, DDS Social History Tobacco Use Types Packs/Day Years Used Date Smoking Tobacco: Never Assessed Sex and Gender Information Value Date Recorded Sex Assigned at Male 12/05/2021 10:32 AM EDT Legal Sex Male 10:32 AM EDT Gender Identity Male 12/05/2021 10:32 AM EDT Sexual Orientation Straight 12/05/2021 10 :32 AM EDT documented as of this encounter Plan of Treatment Not on file documented as of this encounter Visit Diagnoses Not on filedocumented in this encounter Care Teams Contracting Support Specialist Relationship Specialty Start Date End Date Samantha Walker OD [address] [place] [id number] PCP - General Optometry 11/10/16 02/11/23 documented as of this encounter
--- OUTSIDE RECORDS SUMMARY | 2024-03-05 17:23 | XMS_ITS | Encounter Summary ---
Author Organization [employer] Address [address] [facility] 7t [place] [address] Care Team Providers Care Healthcare Educator Name Role Phone Unavailable Primary Care Provider Unavailabl e Reason for Visit * Reason Onset Date Comments rs no show appt 03/04/2024 Encounter Details Date Type Department Care Team (Late st Contact Info) Description 03/04/2024 Telephone [facility] ADULT DENTAL [address], [place] [phone] Francis Lozano, DMD [address], [place] [phone] rs no show appt Social History Tobacco Use Types Packs/Day Years [...] * Telephone Encounter - Mali Patel - 03/04/2024 2:06 PM EST Patient called in looking to rs no show appt. Patient has been informed after a no show there is a waiting period and office will reach out to them after waiting period is over to rs. Patient understood DR documented in this encounter Plan of Treatment Not on file documented as of this encounter Visit Diagnoses Not on filedocumented in this encounter
--- OUTSIDE RECORDS SUMMARY | 2024-03-05 17:23 | XMS_ITS | Clinical Summary ---
Author Organization [facility] Address [address] [place] [address] Care Team Providers Care Dredge Pipeman Name Role Phone Levy Whitney MD Primary Care Provider [phone] Social History Tobacco Use Types Packs/Day Years Used Date Smoking Tobacco: Never Assessed Sex and Gender Information Value Date Recorded Sex Assigned at Not on file Gender Identity Not on file Sexual Orientation Not on file Job Start Date Occupation Industry Not on file Not on file Not on file Plan of Treatment Health Maintenance Due Date Last Done Comments Hepatitis B Vaccines (1 of 3 - 3-dose series) 1986 Hepatitis C Screening 1986 COVID-19 Vaccine (#1) 04/28/1987 Depression Screening 1998 Preventative Health Evaluation 2004 DTap / Tdap / Td (1 - Tdap) 2005 Influenza Vaccine (#1) 2023 Pneumococcal Vaccine Aged Out No long er eligible based on patient's age to complete this topic RSV Ped < 20 months Aged Out No longe r eligible based on patient's age to complete this topic Care Teams Dredge Pipeman Relationship Specialty Start Date End Date Levy Whitney MD [address] [place] [address] [address] [place], [place] [phone] PCP - General Industrial Roof Plumber 03/24/19
--- OUTSIDE RECORDS SUMMARY | 2024-03-05 17:23 | XMS_ITS | Encounter Summary ---
Author Organization [employer] Address [address] [place] [address] Care Team Providers Care Agricultural Education Professor Name Role Phone Levy Whitney MD Primary Care Provider [phone] Reason for Visit * Reason Comments Pain Encounter Details Date Type Department Care Team (Late st Contact Info) Description 02/19/2024 9:00 AM EST Office Visit [facility] - [place] [address] [place] [address] Philly Momin PA [address] [facility] [address] [place] [address] Left hand pain (Primary Dx) Social History Tobacco Use Types Packs/Day Years Used Date Smoking Tobacco: Never Smokeless Tobacco: Never Alcohol Use Standard Drinks/Week Comments Yes 0 (1 standard drink = 0.6 oz pur e alcohol) Sex and Gender Information Value Date Recorded Sex Assigned at Not on file Gender Identity Not on file Sexual Orientation Not on file Job Start Date Occupation Industry Not on file Not on file Not on file documented as of this encounter Progress Notes * PAULINA Rivas - 02/19/2024 9:00 AM EST CHIEF COMPLAINT: Pain of the Left Hand had concerns including Pain of the Left Hand. IDENTIFIER: Narendra Negron is a 38 y.o. old male SUBJECTIVE: Narendra Negron is here for different problem of left hand pain after injury. About 2 to 3 weeks ago he slipped on some ice and landed on outstretched left hand. The ulnar side of his left hand seem to take the brunt of the fall. He states he has noted swelling in that area since. No numbness tingling. He has not tried any bracing, NSAIDs or ice. He did not seek any treatment. There is still some swelling at the hypothenar eminence but has improved overall. He has pain if he puts direct pressure over the palm of the hand, ulnar side. He has had previous surgery with Dr. Capone in the right hand for scaphoid excision and 4 corner fusion. PAST MEDICAL/SURGICAL HISTORY: There are no problems to display for this patient. Past Surgical History: Procedure Laterality Date BACK SURGERY 12/22/2016 PROCEDURE: HISTORICAL BACK SURGERY; COMMENT: L5-S1 ALIF HAND SURGERY Right 10/06/2020 PROCEDURE: HISTORICAL HAND SURGERY; COMMENT: Right wrist scaphoid excision with 4 corner fusion using distal radius bone graft, right flexor muscle of the forearm fasciotomy with Dr. Capone NECK SURGERY 10/01/2018 PROCEDURE: HISTORICAL NECK SURGERY; COMMENT: c5-6 acdf MEDICATIONS DISCONTINUED/REORDERED: There are no discontinued medications. ACTIVE MEDICATIONS: No current outpatient medications on file prior to visit. No current facility-administered medications on file prior to visit. ALLERGIES: No Known Allergies PHYSICAL EXAM: Visit Vitals Smoking Status Never APPEARANCE: Alert and in no acute distress EXTREMITIES: Extremities warm and well perfused without clubbing, cyanosis, or edema Left hand no bruising but there is swelling at the hypothenar eminence. He can make a full fist. Full wrist flexion extension. No pain over ulnar styloid no pain to palpation over radiocarpal joint. No pain over distal radius no snuffbox tenderness. He can abduct and adduct the fingers fully. He istender over the pisiform. No pain with resisted wrist flexion. VASCULAR:well perfused with normal pulses in the distal extremities and no peripheral edema noted NEURO: Awake, alert and oriented SKIN: Skin color, texture, turgor normal. No rashes or lesions. PSYCH: does not appear depressed or anxious and oriented to time, place and person LABS/IMAGING: No results found for: HGBA1C Xrays reviewed: XR Hand 3+ Views Left Date of Visit: 02/19/2024 Reason for visit: Left hand pain and swelling Views: AP, lateral, oblique and pisiform view of the left hand Comparison: Previous x-rays in November Findings: No fracture, dislocation or lytic lesions. No irregularity sclerosis at the pisiform. Normal alignment. Impression: Normal left hand x-ray except for left long finger tuft fracture from previous injury IMPRESSION: 1. Left hand pain PLAN: The details of the visit were reviewed with the patient. Pertinent history, and objective findings were reviewed, along with the diagnoses: Right hand pain after injury. Probable contusion x-rays arenegative. Recommended conservative treatment with ice, anti-inflammatory and bracing. He was provided with a 7 inch wrist brace to wear during the day. I will see him back in 3 to 4 weeks time for clinical recheck. Narendra Negron acknowledges understanding of the above plan and agrees to follow recommendations and/or take medications as prescribed. No orders of the defined types were placed in this encounter. @ELECSIG@ documented in this encounter Plan of Treatment Upcoming Encounters Date Type Department Care Team (Late st Contact Info) Description 03/11/2024 9:30 AM EST Office Visit Orthopedic Surgery - [place] [address] [facility] [address] [place] [address] Philly Momin PA [address] [facility] [address] [place] [phone] documented as of this encounter Visit Diagnoses Diagnosis Left hand pain- Primary Pain in soft tissues of limb documented in this encounter Care Teams Agricultural Education Professor Relationship Specialty Start Date End Date Levy Whitney MD [address] [place] [address] [address] [place], [place] PCP - General Internal Medicine 10/12/17 documented as of this encounter
--- OUTSIDE RECORDS SUMMARY | 2024-03-05 17:23 | XMS_ITS | Clinical Summary ---
Author Organization [address] [place] [address] Address [address] [place] [address] Phone Care Team Providers Care Destaticizer Feeder Name Role Phone Levy Whitney MD Primary Care Provider [phone] Allergies No known active allergies Medications No known medications Encounters Date Type Department Care Team Description 02/19/2024 9:00 AM EST Office Visit Orthopedic Surgery [facility] [address] [facility] [address] [place] [address] Philly Momin PA Left hand pain (Primary Dx) from Last 3 Months Surgical History Surgery Date Site/Laterality Comments HAND SURGERY 10/06/2020 Right PROCEDURE: HISTORICAL HAND SURGERY; COMMENT: Right wrist scaphoid excision with 4 corner fusion using distal radius bone graft, right flexor muscle of the forearm fasciotomy with Dr. Capone NECK SURGERY 10/01/2018 PROCEDURE: HISTORICAL NECK SURGERY; COMMENT: c5-6 acdf BACK SURGERY 12/22/2016 PROCEDURE: HISTORICAL BACK SURGERY; COMMENT: L5-S1 ALIF Medical History Medical History Date Comments Depressive disorder DX:Depressiv e disorder Social History Tobacco Use Types Packs/Day Years [...] file Not on file Not on file Obstetrics History Last Filed Vital Signs Vital Sign Reading Time Taken Comments Blood Pressure 117/67 05/09/2022 10:46 AM EDT Pulse 66 05/09/2022 10:46 AM EDT Temperature - - Respiratory Rate - - Oxygen Saturation - - Inhaled Oxygen Concentration - - Weight 81.6 kg (180 lb) 11/19/2023 9:59 AM EDT Height 175.3 cm (5' 9 ) 11/19/2023 9:59 AM EDT Body Mass Index 26.58 11/19/2023 9:59 AM EDT Plan of Treatment Upcoming Encounters Date Type Department Care Team (Late st Contact Info) Description 03/11/2024 9:30 AM EST Office Visit Orthopedic Surgery - [place] [address] [facility] [address] [place] [phone] Philly Momin PA [address] [facility] [address] [place] [phone] Health Maintenance Due Date Last Done Comments DTaP,Tdap,and Td Vaccines (1 - Tdap) 2005 Hepatitis B Vaccines (1 of 3 - 19+ 3-dose series) 2005 Cholesterol Screening (Lipid Panel) 01/08/2022 Depression Screening 01/08/2022 HIV Screening 01/08/2022 Hepatitis C Screening 01/08/2022 Social Influencers of Health Screening 01/08/2022 COVID-19 Vaccine (4 - 2023-2 5 season) 2023 12/21/2021, 11/03/2020, 10/13/2020 Influenza Vaccine (#1) 2023 , 11/01/2016, 11/05/2015 HIB Vaccines Aged Out No longer eligi ble based on patient's age to complete this topic HPV Vaccines Aged Out No longer eligi ble based on patient's age to complete this topic Hepatitis A Vaccines Aged Out No long er eligible based on patient's age to complete this topic IPV Vaccines Aged Out No longer eligi ble based on patient's age to complete this topic MMR Vaccines Aged Out No longer eligi ble based on patient's age to complete this topic Meningococcal ACWY Vaccine Aged Out N o longer eligible based on patient's age to complete this topic Pneumococcal Vaccine: Pediatrics (0 to 5 Years) and At-Risk Patients (6 to 64 Years) Aged Out No longer eligible b ased on patient's age to complete this topic RSV Immunization Patients Under 20 months Aged Out No longer eligible b ased on patient's age to complete this topic Varicella Vaccines Aged Out No longer eligible based on patient's age to complete this topic Procedures Procedure Name Priority Date/Time Associated Diagnosis Comments XR HAND 3+ VIEWS LEFT Routine 02/19/2024 9:19 AM EST Pain from Last 3 Months Results * XR Hand 3+ Views Left (02/19/2024 9:19 AM EST) Anatomical Region Laterality Modality Upper Extremities, Hand Left Computed Radiography Narrative 02/19/2024 10:28 AM EST Date of Visit: 02/19/2024 Reason for visit: Left hand pain and swelling Views: AP, lateral, oblique and pisiform view of the left hand Comparison: Previous x-rays in November Findings: No fracture, dislocation or lytic lesions. No irregularity sclerosis at the pisiform. ??Normal alignment. Impression: Normal left hand x-ray except for left long finger tuft fracture from previous injury Philly GALLARDO IMG XR PROCEDURES from Last 3 Months Care Teams Destaticizer Feeder Relationship Specialty Start Date End Date Levy Whitney MD [address] [place] [address] Dr Rina [place] PCP - General Internal Medicine 10/12/17
== END 2024-03-05 15:26 | disposition home or self-care (01) ==
LOC: HO.XRAY 15:25
PROVIDERS: PCP Internal Medicine; Visit Provider Internal Medicine
DX: R05.9 Cough, unspecified (principal)
CPT/HCPCS: 0241U; 71046

== ENCOUNTER → 2024-03-05 15:50 | Outpatient (BNV) | payer OTHER, SELFPAY | PROVIDERS: PCP Internal Medicine; Visit Provider Radiology Diagnostic Radiology | DX: R05.9 Cough, unspecified (principal) | CPT/HCPCS: 71046 ==

== ENCOUNTER 2024-03-10 09:47 | Outpatient (AMB) | payer OTHER, SELFPAY ==
--- OUTSIDE RECORDS SUMMARY | 2024-03-10 10:17 | XMS_ITS | Encounter Summary ---
Author Organization [employer] Address [address] [facility] 7t [place] [address] Care Team Providers Care Engineering Writer Name Role Phone Samantha Walker OD Primary Care Provider [phone] Reason for Visit * Reason Onset Date Comments Appointment 04/03/2022 Encounter Details Date Type Department Care Team (Late st Contact Info) Description 04/03/2022 Telephone [facility] [address] [place], [place] [phone] Robin Lopez, DMD [address] [place], [place] [phone] Appointment Social History Tobacco Use Types Packs/Day [...] on filedocumented in this encounter Care Teams Engineering Writer Relationship Specialty Start Date End Date Samantha Walker OD [address] [place] [address] PCP - General Optometry 11/10/16 02/11/23 documented as of this encounter
--- OUTSIDE RECORDS SUMMARY | 2024-03-10 10:17 | XMS_ITS | Encounter Summary ---
Author Organization [employer] Address [address] [facility] [address] [place] [address] Care Team Providers Care Electronics Engineering Technologist Name Role Phone AaronJonnn OD Primary Care Provider [phone] Encounter Details Date Type Department Care Team (Latest Contact Info) Description 12/10/2020 Abstract [facility] CONVERSIONS Dental, Provider, DDS Social [...] on filedocumented in this encounter Care Teams Electronics Engineering Technologist Relationship Specialty Start Date End Date Samantha Walker OD [address] [place] [address] PCP - General Optometry 11/10/16 02/11/23 documented as of this encounter
--- OUTSIDE RECORDS SUMMARY | 2024-03-10 10:18 | XMS_ITS | Clinical Summary ---
Author Organization [employer] Address [address] [facility] 7t [place] [address] Care Team Providers Care Patient Registration Supervisor Name Role Phone Unavailable Primary Care Provider [...] Type Department Care Team Description 03/04/2024 Telephone [facility] ADULT DENTAL [address] [place], [place] [phone] Francis Lozano, WENDI rs no show appt 02/21/2024 Telephone [facility] ADULT DENTAL [address] [place], [place] [phone] Shanice Harman 12/24/2023 9:45 AM EST Office Visit [facility] OPTOMETRY [address] [place], [place] [phone] Aaron, Samantha, OD Myopic astigmatism of both [...] Most Recently Relevant to Health Maintenance Insurance [facility] MEDICAID STAND ADULT
--- OUTSIDE RECORDS SUMMARY | 2024-03-10 10:18 | XMS_ITS | Clinical Summary ---
Author Organization [address] [place] [address] Address [address] [place] [address] Phone Care Team Providers Care Floatlight Powder Mixer Name Role Phone Levy Whitney MD Primary Care Provider [phone] Allergies No known active allergies Medications No known medications Encounters Date Type Department Care Team Description 02/19/2024 9:00 AM EST Office Visit Orthopedic Surgery [facility] [address] [facility] [address] [place] [address] Philly Momin PA Left hand [...] AM EST Office Visit Orthopedic Surgery - [place] [address] [facility] [address] [place] [phone] Philly Momin PA [address] [facility] [address] [place] [phone] Health Maintenance Due Date Last Done Comments [...] PROCEDURES from Last 3 Months Care Teams Floatlight Powder Mixer Relationship Specialty Start Date End Date Levy Whitney MD [address] [place] [address] Dr Rina [place] PCP - General Internal Medicine 10/12/17
--- OUTSIDE RECORDS SUMMARY | 2024-03-10 10:18 | XMS_ITS | Encounter Summary ---
Author Organization [employer] Address [address] [place] [address] Care Team Providers Care Care Services Manager Name Role Phone Levy Whitney MD Primary Care Provider Reason for Visit * Reason Comments Pain Encounter Details Date Type Department Care Team (Late st Contact Info) Description 02/19/2024 9:00 AM EST Office Visit Orthopedic Surgery - [place] [address] [place] [address] Philly Momin PA [address] [facility] [address] [place] [address] Left hand pain (Primary Dx) [...] AM EST Office Visit Orthopedic Surgery - [place] 175 [facility] [address] [place] [address] Philly Momin PA 174 [facility] [address] [place] [phone] documented as of this encounter Visit Diagnoses Diagnosis Left hand pain- Primary Pain in soft tissues of limb documented in this encounter Care Teams Care Services Manager Relationship Specialty Start Date End Date Levy Whitney MD [address] [place] [address] [address] [place], [place] PCP - General Internal Medicine 10/12/17 documented as of this encounter
--- OUTSIDE RECORDS SUMMARY | 2024-03-10 10:18 | XMS_ITS | Clinical Summary ---
Author Organization [facility] Address [address] [place] [address] Care Team Providers Care Client Care Specialist Name Role Phone Levy Whitney MD Primary Care Provider [phone] Social History Tobacco Use Types Packs/Day Years [...] age to complete this topic Care Teams Client Care Specialist Relationship Specialty Start Date End Date Levy Whitney MD [address] [place] [address] [address] [place] Arellano [phone] PCP - General Digital Imaging Specialist 03/24/19
--- OUTSIDE RECORDS SUMMARY | 2024-03-10 10:18 | XMS_ITS | Encounter Summary ---
Author Organization [employer] Address [address] [facility] [facility] [address] 7[address] [place] [address] Care Team Providers Care Hatch Boss Name Role Phone Unavailable Primary Care Provider Unavailabl e Encounter Details Date Type Department Care Team (Late st Contact Info) Description 02/21/2024 Telephone [facility] ADULT DENTAL [address] [place] [address] Shanice Harman Social History Tobacco Use Types [...]
--- OUTSIDE RECORDS SUMMARY | 2024-03-10 10:18 | XMS_ITS | Encounter Summary ---
Author Organization [employer] Address 75 [facility] 7t [place] [address] Care Team Providers Care Center Receptionist Name Role Phone Unavailable Primary Care Provider Unavailabl e Reason for Visit * Reason Onset Date Comments rs no show appt 03/04/2024 Encounter Details Date Type Department Care Team (Late st Contact Info) Description 03/04/2024 Telephone [facility] ADULT DENTAL [address] [place], [place] [phone] Francis Lozano, DMD [address] [place], [place] [phone] rs no show appt Social History Tobacco [...]
--- NOTE | 2024-03-10 10:51 | MHC.OFFVIS ---
Vital Signs 03/10/24 10:52 Height 5 ft 9 in Weight 192 lb BMI 28.4 BP 131/60 Blood Pressure Location Lt brachial Position Sitting Respiration 16 Pulse 74 Pulse Source Pulse Oximeter Pulse Oximetry (%) 98 Oxygen Delivery Method Room Air Intake Visit Reasons: Radiculopathy, lumbar region/reff again Ride Attendant Required: No Allergies alcohol [ALCOHOL] Allergy (Severe, Verified 03/10/24 10:53) Anaphylaxis oxycodone [From PERCOCET] Allergy (Severe, Verified 03/10/24 10:53) TACHYCARDIA,SHAKING, itching aspirin Adverse Reaction (Intermediate, Verified 03/10/24 10:53) Nose Bleed ibuprofen [IBUPROFEN] Adverse Reaction (Intermediate, Verified 03/10/24 10:53) Nose Bleed Beer/ wine Allergy (Severe, Uncoded 03/10/24 10:53) anaphylaxis Opiates Allergy (Intermediate, Uncoded 03/10/24 10:53) Shaking / Nausea / Vomiting Medication List - Last Reconciled 03/10/24 by Mary Doe LPN gabapentin 600 mg PO TID pantoprazole 20 mg PO DAILY PRN HPI HPI Radiculopathy, lumbar region/reff again: Details: History of Present Illness The patient is a 38-year-old male presenting with chronic low back pain persisting after a spinal fusion surgery. The surgery was performed earlier in life due to degenerative changes and resulted in short-term relief. However, the pain returned within months postoperatively. The patient reports the pain is located primarily in the lumbar midline area, affecting both the upper and lower lumbar regions. An MRI of the lumbar spine revealing degenerative changes at the L5 and S1 endplates led to a diagnosis of vertebrogenic low back pain. Prior treatments, including physical therapy, nerve blocks, and topical patches, provided no lasting relief. The pain, occasionally radiating to the left leg, exacerbates with physical activity and prolonged standing, impacting daily tasks and quality of life. The patient has also reported frustration, difficulty with routine activities, and discomfort in various sleeping positions. Pain Description - Onset: Persistent since early adulthood, post-surgical recurrence. - Quality: Described as persistent, radiates to the left leg sometimes. - Location: Lumbar midline area, upper and lower lumbar spine. - Radiation: Occasionally to the left leg. - Aggravating Factors: Physical activity, prolonged standing, and certain positions while sleeping. - Relieving Factors: None noted significantly in the conversation. - Interference: Affects daily activities, comfort in sleeping positions, and contributing to frustration in personal life. Physical Exam - Spine- Lumbar spine stiffness upon forward flexion; increased discomfort while rising from flexed position. Results - MRI: Intra vertebral cage placement at L5-S1; vertebral endplate changes at L5 and S1; evidence of edema on STIR images. Pain Management - Affect: Frustration related to persistent pain affecting daily living. - Analgesia: Previous treatments (physical therapy, topical patches) have been ineffective. - Adverse Effects: None reported from current medications. - Activities of Daily Living: Pain impacts standing, daily tasks, and sleeping positions. - Aberrant Drug Related Behaviors: Not reported. [facility] Medical History Personal history of COVID-19 (~2020) Depression Hemorrhoids Bleeding hemorrhoids Migraine Surgical History History of surgery on wrist Hx of neck surgery History of surgery (~2014) History of arthroscopy of hip Hx of arthroscopy of knee S/P carpal tunnel release Hx of cervical spine surgery (~2018) History of hernia repair Family History Father No problems noted. Mother Hypertension Social History Are you a primary patient care provider to a significant other at home: No Do you presently have visiting nurse or other home services: No Patient Tobacco Use Status: Never used Tobacco Physical Exam Vital Signs: Last Vital Signs Pulse 74 03/10/24 10:52 Resp 16 03/10/24 10:52 BP 131/60 03/10/24 10:52 Pulse Ox 98 03/10/24 10:52 Oxygen Delivery Method Room Air 03/10/24 10:52 BMI result Body Mass Index 28.4 Results Reviewed Results Reviewed: MRI showing Modic changes/ endplate degeneration and edema at L5/S1 Assessment & Plan Assessment & Plan (1) Vertebrogenic low back pain: Code(s): M54.51 - Vertebrogenic low back pain Category: Medical Plan Plan - Proceed with basivertebral nerve ablation at L4, L5, S1 levels to address vertebrogenic pain. - Initiate request for insurance authorization for the procedure. - Follow up on patient's response to potential procedure. Patient was informed and verbally consented to the use of an ambient scribe for clinic note documentation during this visit. Discussion Notes We discussed the presence of degenerative changes at L5 and S1, contributing to the patient's chronic low back pain. I explained the potential benefits of basivertebral nerve ablation as a targeted approach to disrupt pain transmission and alleviate symptoms related to vertebrogenic pain. I detailed the procedure, including its 70-80% success rate in my experience, with the possibility for alternative solutions if ineffective. Potential risks, post-procedural soreness, and estimated recovery were acknowledged. The patient expressed understanding and a willingness to pursue this plan. He was also guided regarding the pre-authorization process, and optimistic outcomes were communicated given his age and condition specifics. Patient Instructions - Await contact for scheduling the basivertebral nerve ablation once authorization is received. - Maintain current management strategies until the procedure. - Report any changes in symptoms or severe discomfort immediately. - Follow up as required for assessing pain levels post-procedure. Coding Level of Care Code New Pt Level 4 (98405) Diagnoses Vertebrogenic low back pain M54.51
[2024-03-10 10:52] VITALS: BP 131/60; PULSE 74; RESP 16; O2SAT 98; BMI 28.4
== END 2024-03-10 11:29 | disposition home or self-care (01) ==
PROVIDERS: PCP Internal Medicine; Referring Provider Physician Assistant; Visit Provider Internal Medicine
DX: M54.51 Vertebrogenic low back pain (principal)
CPT/HCPCS: 99214

== ENCOUNTER → 2024-03-10 09:47 | Outpatient (BNVA) | payer OTHER, SELFPAY | PROVIDERS: PCP Internal Medicine; Referring Provider Physician Assistant; Visit Provider Internal Medicine | DX: M54.51 Vertebrogenic low back pain (principal) | CPT/HCPCS: 99212 ==

== ENCOUNTER 2024-04-16 10:10 | Day surgery (SDC) | payer OTHER, SELFPAY ==
--- OUTSIDE RECORDS SUMMARY | 2024-04-03 17:30 | XMS_ITS | Encounter Summary ---
Author Organization [facility] Address [address] [place] [address] Care Team Providers Care Office Rep Name Role Phone Levy Whitney MD Primary Care Provider [phone] Reason for Referral * Consultation (Routine) - Pending Review Specialty Diagnoses / Procedures Referred By Twila sullivan Referred To Contact Occupational Therapy Diagnoses Left hand pain Philly Momin PA [address] [facility] [address] [address] Phone: tel: fax: Referral ID Status Reason Start Date Expiration Date Visits Requested Visits Authorized [id number] Pending Review Specialty Services Required 03/11/2024 03/11/2025 1 1 Reason for Visit * Reason Comments Pain Encounter Details Date Type Department Care Team (Late st Contact Info) Description 03/11/2024 9:30 AM EST Office Visit Orthopedic Surgery - [place] [address] [facility] [address] [place] [address] Philly Momin PA 174 [facility] [address] [place] [phone] Left hand pain (Primary Dx) Social History Tobacco Use Types Packs/Day Years Used Date Smoking Tobacco: Never Smokeless Tobacco: Never Alcohol Use Standard Drinks/Week Comments Yes 0 (1 standard drink = 0.6 oz pur e alcohol) Sex and Gender Information Value Date Recorded Sex Assigned at Not on file Legal Sex Male 5:07 AM EST Gender Identity Not on file Sexual Orientation Not on file documented as of this encounter Progress Notes * PAULINA Rivas - 03/11/2024 9:30 AM EST CHIEF COMPLAINT: Pain of the Left Hand had concerns including Pain of the Left Hand. IDENTIFIER: Narendra Negron is a 38 y.o. old male SUBJECTIVE: Narendra Negron is here for follow-up of left hand pain over hypothenar eminence after an injury about5 to 6 weeks ago. He fell on his left hand when he slipped on ice. He did not seek treatment right away. When I saw him about 3 weeks ago he was having some improvement in the pain over the area but was still having pain with putting pressure directly over the hypothenar eminence. He was given a left wrist brace but he states it did not help and actually bother him more. No numbness tingling in the left hand. He reports pain is only when he puts pressure directly on the left hand. He has had previous surgery with Dr. [...] clubbing, cyanosis, or edema Left hand no bruising. Mild swelling of hypothenar eminence. He can make a full fist. Full wrist flexion extension. No pain over the wrist or ulnar styloid. No pain to palpation over pisiform or hypothenar eminence. No pain over FCU tendon. Can abduct and adduct the fingers fully. VASCULAR:well perfused with normal pulses in the [...] after injury. Probable contusion x-rays arenegative. Recommended continued conservative treatment and adding occupational therapy. Occupational Therapy prescription was provided. If he still having symptoms after 6 weeks we can consider getting an MRI scan. Brace was not helping so I did tell him to stop the brace. Will see how he does withthe occupational therapy and follow-up in 6 weeks time. Narendra Negron acknowledges understanding of the above plan and agrees to follow recommendations and/or take medications as prescribed. Orders Placed This Encounter Procedures Ambulatory referral to Occupational Therapy @[email or web address]@ documented in this encounter Plan of Treatment Upcoming Encounters Date Type Department Care Team ([facility] st Contact Info) Description 04/22/2024 9:45 AM EDT Office Visit Orthopedic Surgery - [place] [address] [phone] Lena Capone MD [address] [phone] Scheduled Referrals Name Type Priority Associated Diagnoses Order Schedule Ambulatory referral to Occupational Therapy Outpatient Referral Routine Left hand pain 1 Occurrences starting 03/11/2024 until 03/11/2025 documented as of this encounter Visit Diagnoses Diagnosis Left hand pain- Primary Pain in soft tissues of limb documented in this encounter Care Teams Office Rep Relationship Specialty Start Date End Date Levy Whitney MD NPI: [id number] [place] [address] Dr Rina [place] PCP - General Internal Medicine 10/12/17 documented as of this encounter
--- OUTSIDE RECORDS SUMMARY | 2024-04-03 17:30 | XMS_ITS | Encounter Summary ---
Author Organization [employer] Address 75 [facility] 7t [place] [address] Care Team Providers Care Bank Cashier Name Role Phone Unavailable Primary Care Provider Unavailabl e Reason for Visit * Reason Onset Date Comments rs no show appt 03/04/2024 Encounter Details Date Type Department Care Team (Late st Contact Info) Description 03/04/2024 Telephone [facility] ADULT DENTAL [address] [place], [place] [phone] Francis Lozano, DMD [address] [place], [place] [phone] rs no show appt Social History Tobacco [...] Care Team (Late st Contact Info) Description 05/19/2024 11:00 AM EDT Office Visit [facility] ADULT [facility] [address] [place] [address] Kate Monae [address] [place] [address] documented as of this encounter Visit Diagnoses Not on filedocumented in this encounter
--- OUTSIDE RECORDS SUMMARY | 2024-04-03 17:30 | XMS_ITS | Clinical Summary ---
Author Organization [facility] Address [address] [place] [address] Care Team Providers Care Music Educator Name Role Phone Levy Whitney MD Primary Care Provider [phone] Social History Tobacco Use Types Packs/Day Years [...] age to complete this topic Care Teams Music Educator Relationship Specialty Start Date End Date Levy Whitney MD [address] [place] [address] [address] [place] Arellano [phone] PCP - General Beef Tagger 03/24/19
--- OUTSIDE RECORDS SUMMARY | 2024-04-03 17:30 | XMS_ITS | Clinical Summary ---
Author Organization [address] [place] [address] [place] [phone] Phone Care Team Providers Care Curriculum Advisory Teacher Name Role Phone Levy Whitney MD Primary Care Provider [phone] Allergies No known active allergies Medications No known medications Encounters Date Type Department Care Team Description 03/11/2024 9:30 AM EST Office Visit [address] [phone] Philly Momin PA Left hand pain (Primary Dx) 02/19/2024 9:00 AM EST Office Visit [address] [address] Philly Momin PA Left hand pain [...] on file Sexual Orientation Not on file Obstetrics History Last Filed [...] Care Team (Late st Contact Info) Description 04/22/2024 9:45 AM EDT Office Visit Orthopedic Surgery - [place] [address] [facility] [address] [place] [phone] Lena Capone MD 175 [facility] [address] [place] [phone] Health Maintenance Due Date Last Done Comments [...] patient's age to complete this topic Meningococcal B Vacine Aged Out No lo nger eligible based on patient's age to complete [...] long finger tuft fracture from previous injury us Philly GALLARDO IMG XR PROCEDURES Edited Resu lt - Final from Last 3 Months Insurance [facility] PUBLIC PLANS Care Teams Curriculum Advisory Teacher Relationship Specialty Start Date End Date Levy Whitney MD [address] [place] [address] Dr Rina [place] PCP - General Internal Medicine 10/12/17
--- OUTSIDE RECORDS SUMMARY | 2024-04-03 17:30 | XMS_ITS | Clinical Summary ---
Author Organization [employer] Address [address] [place] [address] Care Team Providers Care Front Desk Agent Name Role Phone Unavailable Primary Care Provider [...] Type Department Care Team Description 03/04/2024 Telephone [facility] ADULT DENTAL [address] [place] [address] Francis Lozano DMD rs no show appt 02/21/2024 Telephone [facility] ADULT D[facility]AL [address] [place], [place] [phone] Shanice Harman from Last 3 Months Social History Tobacco [...] Mass Index - - Plan of Treatment Upcoming Encounters Date Type Department Care Team (Late st Contact Info) Description 05/19/2024 11:00 AM EDT Office Visit [facility] ADULT D[facility]AL [address] [place] [address] Dov, Kate [address] [place] [address] Health Maintenance Due Date Last Done Comments [...] - 19+ 3-dose series) 2005 COVID-19 Vaccine ( - 2023-2 5 season) 2023 12/21/2021, 11/03/2020, [...] :00 AM EDT Dental plaque Dental calculus INTRAORAL - COMPLETE SERIES OF RADIOGRAPHIC IMAGES Routine 08/07/2023 8:00 AM EDT from Last 3 Months or Most Recently Relevant to Health Maintenance Insurance [facility] EYE MED EYE MED DENTAL-[facility] MEDICAID STAND ADULT
--- OUTSIDE RECORDS SUMMARY | 2024-04-03 17:30 | XMS_ITS | Encounter Summary ---
Author Organization [employer] Address [address] [facility] 7[address] [place] [address] Care Team Providers Care Marketing Technology Specialist Name Role Phone Samantha Walker OD Primary Care Provider [phone] Reason for Visit * Reason Onset Date Comments Appointment 04/03/2022 Encounter Details Date Type Department Care Team (Late st Contact Info) Description 04/03/2022 Telephone [facility] [address] [place], [place] [phone] Robin Lopez, DMD [address] [place], [place] [phone] Appointment Social History Tobacco Use Types Packs/Day [...] Description 05/19/2024 11:00 AM EDT Office Visit [facility] ADULT D[facility]AL [address] [place], [place] [phone] Dov, Kate [address] [place] [address] documented as of this encounter Visit Diagnoses Not on filedocumented in this encounter Care Teams Marketing Technology Specialist Relationship Specialty Start Date End Date Samantha Walker OD [address] [place] [phone] PCP - General Optometry 11/10/16 02/11/23 documented as of this encounter
--- OUTSIDE RECORDS SUMMARY | 2024-04-03 17:30 | XMS_ITS | Encounter Summary ---
Author Organization [employer] Address [address] [facility] 7t [place] [address] Care Team Providers Care Power Saw Mechanic Name Role Phone AaronSamantha OD Primary Care Provider [phone] Encounter Details Date Type Department Care Team (Latest Contact Info) Description 12/10/2020 Abstract [facility] Dental, Provider, DDS Social History Tobacco Use Types Packs/Day Years Used Date Smoking Tobacco: Never Assessed Sex and Gender Information Value Date Recorded Sex Assigned at Male 12/05/2021 10:32 AM EDT Legal Sex Male 10:32 AM EDT Gender Identity Male 12/05/2021 10:32 AM EDT Sexual Orientation Straight 12/05/2021 10 :32 AM EDT documented as of this encounter Plan of Treatment Upcoming Encounters Date Type Department Care Team (Late st Contact Info) Description 05/19/2024 11:00 AM EDT Office Visit [facility]ULT [facility] [address] [place] [address] Dov, Kate [address] [place] [phone] documented as of this encounter Visit Diagnoses Not on filedocumented in this encounter Care Teams Power Saw Mechanic Relationship Specialty Start Date End Date Samantha Walker OD [address] [place] [address] PCP - General Optometry 11/10/16 02/11/23 documented as of this encounter
[2024-04-14 09:27] VITALS: BMI 28.4
[2024-04-16] VITALS (26 sets, daily range): BP systolic 89–119; BP diastolic 32–66; PULSE 50–75; RESP 11–24; TEMP 36.2–36.3; O2SAT 97–100; BMI 27.0
--- NOTE | ~2024-04-16 | FL_ITS ---
EXAMINATION: FL GUIDANCE ONLY HISTORY: L4-S1 RFA COMPARISON: Correlation is made to plain films of the lumbar spine dated 11/27/2023. TECHNIQUE: Fluoroscopy time: 3 minutes, 40 seconds. Cumulative Dose: 202.28 mGy. DAP: 26.199 mGym2 Images: 10. FINDINGS: Images demonstrate multiple probes overlying the lumbar spine at the L4, L5, and S1 levels. FL/FL guidance in OR IMPRESSION: Fluoroscopy during procedure. Please see procedure report for additional information. Electronically signed by: Jonh Gil MD 04/16/2024 03:50 PM EDT
[2024-04-16] MEDS: Lactated Ringers 1,000 ML 100 ML IVCONT (11:25)
--- NOTE | 2024-04-16 12:08 | MHC.SHP ---
Pre-Procedural Eval Section A - 24 Hr Update-Section A only Date of Service: 04/16/24 The patient is an INPATIENT: No Changes since office visit: Yes Patient answered all questions The patient has been examined within 24 hours of the surgical procedure. The History & Physical has been completed within 30 days and I have reviewed it.: No Section B - Complete if H&P > 30 days Chief Complaint: Vertebrogenic low back pain Relevant Family History (Specify if Yes): No Relevant Social History: None Present Medications: see Short Stay Collaborative assessment Medical History: No relevant PMH History of Previous Operations: No relevant previous surgery Allergies: Allergies Allergy/AdvReac Type Severity Reaction Status Date / Time alcohol [ALCOHOL] Allergy Severe Anaphylaxis Verified 04/16/24 10:54 oxycodone [From PERCOCET] Allergy Severe TACHYCARDIA,SHAKING, Verified 04/16/24 10:54 itching aspirin AdvReac Intermediate Nose Bleed Verified 04/16/24 10:54 ibuprofen [IBUPROFEN] AdvReac Intermediate Nose Bleed Verified 04/16/24 10:54 Beer/ wine Allergy Severe anaphylaxis Uncoded 03/10/24 10:53 Opiates Allergy Intermediate Shaking / Uncoded 03/10/24 10:53 Nausea / Vomiting Review of Systems Sugical H&P ROS: Negative: Constitution, Cardiovascular and Respiratory Exam Surgical H&P Exam: Normal: HEENT, Normal: Heart and Normal: Lungs Plan Diagnosis/Plan: Unchanged I have reviewed the history and physical and performed a pertinent physical examination on my patient. No changes have occurred unless specified. Time Spent With Patient Time: Total time managing care of this patient today ____ minutes.
--- NOTE | 2024-04-16 12:15 | HO.ANESPROP2 ---
Documented by User: Gini Koenig NP 04/14/24 14:38 HPI - Anesthesia Eval Consult details Narrative: 38yo M for L4,L5 and S1 Basivertebral Nerve Ablation (Intracept RFA) s/p ACDF 04/2023 with GA-ETT 7 PMFSH Active Problems Active Problems: All Active Problems Vertebrogenic low back pain (Acute) Lumbar radiculopathy (Acute) History of spinal surgery (Acute) Cervical spondylosis (Acute) Cervical radiculopathy (Acute) Precordial chest pain (Acute) Hemorrhoids (Acute) Bleeding hemorrhoids (Acute) History of hernia repair (Acute) Migraine (Acute) Past Medical History Medical History Personal history of COVID-19 (~2020) Depression Hemorrhoids Bleeding hemorrhoids Migraine Family History Family History Father No problems noted. Mother Hypertension Family history of problems with anesthesia: No Surgical History Surgical History Status post hemorrhoidectomy History of surgery on wrist Hx of neck surgery History of surgery (~2014) History of arthroscopy of hip Hx of arthroscopy of knee S/P carpal tunnel release Hx of cervical spine surgery (~2018) History of hernia repair History of Problems with Anesthesia: No Social History Social History Are you a primary patient care representative to a significant other at home: No Do you presently have visiting nurse or other home services: No Patient Tobacco Use Status: Never used Tobacco Use of substances other than those prescribed or required for medical reasons: No Have you been hit, kicked, punched, or otherwise hurt by someone within the past year? If so, by whom?: No Are you DNR?: No Advance Directives: No Advance Directives Information Provided: Yes Recently lost weight without trying: No Nutrition Risks: No Nutritional Risk Poor oral hygiene: No Meds Allergies Allergy/AdvReac Type Severity Reaction Status Date / Time alcohol [ALCOHOL] Allergy Severe Anaphylaxis Verified 04/16/24 10:54 oxycodone [From PERCOCET] Allergy Severe TACHYCARDIA,SHAKING, Verified 04/16/24 10:54 itching aspirin AdvReac Intermediate Nose Bleed Verified 04/16/24 10:54 ibuprofen [IBUPROFEN] AdvReac Intermediate Nose Bleed Verified 04/16/24 10:54 Beer/ wine Allergy Severe anaphylaxis Uncoded 03/10/24 10:53 Opiates Allergy Intermediate Shaking / Uncoded 03/10/24 10:53 Nausea / Vomiting Home Medications ?Medication ?Instructions ?Recorded ?Confirmed ?Last Taken ?Type pantoprazole 20 mg tablet,delayed 20 mg PO DAILY PRN Gastric Reflux 04/11/23 04/16/24 Unknown History release Exam Height,Weight and Vital Signs: Height 5 ft 9 in Weight 87.09 kg Narrative Narrative: ECHO 2021 Conclusions: - Normal study 04/12/23: 12 lead EKG Date of Service: 04/12/23 Procedure(s): ECG 12 lead EKG Vent. Rate : 061 BPM Atrial Rate : 061 BPM P-R Int : 152 ms QRS Dur : 086 ms QT Int : 366 ms P-R-T Axes : 072 023 029 degrees QTc Int : 368 ms Normal sinus rhythm Normal ECG When compared with ECG of 30-MAY-2019 17:28, No significant change was found Assessment and Plan Assessment Anesthesia Assessment: Chart Reviewed Final Anesthetic Review Family History of Problems with Anesthesia: No History of Problems with Anesthesia: No Documented by User: Lana Valles DO 04/16/24 12:37 [facility] Past Medical History Medical History Personal history of COVID-19 (~2020) Depression Hemorrhoids Bleeding hemorrhoids Migraine Family History Family History Father No problems noted. Mother Hypertension Family history of problems with anesthesia: No Surgical History Surgical History Status post hemorrhoidectomy History of surgery on wrist Hx of neck surgery History of surgery (~2014) History of arthroscopy of hip Hx of arthroscopy of knee S/P carpal tunnel release Hx of cervical spine surgery (~2018) History of hernia repair History of Problems with Anesthesia: No Social History Social History Are you a primary patient care representative to a significant other at home: No Do you presently have visiting nurse or other home services: No Patient Tobacco Use Status: Never used Tobacco Use of substances other than those prescribed or required for medical reasons: No Have you been hit, kicked, punched, or otherwise hurt by someone within the past year? If so, by whom?: No Are you DNR?: No Advance Directives: No Advance Directives Information Provided: Yes Recently lost weight without trying: No Nutrition Risks: No Nutritional Risk Poor oral hygiene: No Meds Allergies Allergy/AdvReac Type Severity Reaction Status Date / Time alcohol [ALCOHOL] Allergy Severe Anaphylaxis Verified 04/16/24 10:54 oxycodone [From PERCOCET] Allergy Severe TACHYCARDIA,SHAKING, Verified 04/16/24 10:54 itching aspirin AdvReac Intermediate Nose Bleed Verified 04/16/24 10:54 ibuprofen [IBUPROFEN] AdvReac Intermediate Nose Bleed Verified 04/16/24 10:54 Beer/ wine Allergy Severe anaphylaxis Uncoded 03/10/24 10:53 Opiates Allergy Intermediate Shaking / Uncoded 03/10/24 10:53 Nausea / Vomiting Home Medications ?Medication ?Instructions ?Recorded ?Confirmed ?Last Taken ?Type pantoprazole 20 mg tablet,delayed 20 mg PO DAILY PRN Gastric Reflux 04/11/23 04/16/24 Unknown History release Exam Exam Date and Time: 04/16/24 1210 Height,Weight and Vital Signs: Height 5 ft 9 in Weight 87.09 kg Vital Signs Temperature 97.4 F 04/16/24 11:21 Pulse Rate 68 04/16/24 11:21 Respiratory Rate 14 04/16/24 11:21 Blood Pressure 116/66 04/16/24 11:21 Pulse Oximetry 97 04/16/24 11:21 Oxygen Delivery Method Room Air 04/16/24 11:21 Temperature 97.4 F 04/16/24 11:21 Pulse Rate 68 04/16/24 11:21 Respiratory Rate 14 04/16/24 11:21 Blood Pressure 116/66 04/16/24 11:21 Pulse Oximetry 97 04/16/24 11:21 Oxygen Delivery Method Room Air 04/16/24 11:21 Airway Mallampati Class: I TM Dist: >3cm Neck ROM: Full Loose/Missing/Broken Teeth: Yes (several missing molars) Heart: S1S2 Lungs: CTAB Assessment and Plan Assessment Anesthesia Assessment: Anesthesia Plan Discussed and Chart Reviewed Final Anesthetic Review Family History of Problems with Anesthesia: No History of Problems with Anesthesia: No NPO: Yes ASA Class: II Final Preanesthetic Review: No Changes in Pt Med Stat, Meds/Allgs Chart Reviewed, Consent Obtained/Reviewed and Anes Risks/Benef Reviewed Patient Risk: Low Procedure Risk: Low Anesthetic Plan Anesthetic Plan: GA and Agree w/ Assess. and Plan Disposition: Standard PACU
[2024-04-16] MEDS: ceFAZolin Sodium/Dextrose,Iso 2 GM/50 ML PIGGYBACK IV (12:40)
[2024-04-16 13:05] LABS: MRSA Nasal PCR NEGATIVE (Negative); SA Nasal PCR NEGATIVE (Negative)
--- NOTE | 2024-04-16 14:30 | PM.OP ---
Brief Operative Note Date of Service: 04/16/24 Pre-op diagnosis: Vertebrogenic Low Back Pain Procedure: Basiverterbal nerve ablation, L4, L5, S1 Surgeon: Dayne Fung MD Anesthesia: GETA Was an Division Leader used for this Procedure?: No Estimated blood loss (mL): 40 Pathology: none sent Condition: stable Disposition: PACU
--- NOTE | 2024-04-16 14:32 | P.OP_ITS ---
Operative Note Operative Note Date of Service: 04/16/24 Narrative: Preoperative diagnosis: Vertebrogenic low back pain Postoperative diagnosis: Same Procedure: Basivertebral nerve (BVN) ablation ? Intracept Procedure L4, L5, S1 Procedure Time Out: Patient ID confirmed, correct procedure to be performed, correct site and/or side for procedure as per marked location and correct medication(s), including antibiotic to be used for the procedure. Description of Procedure: After receiving anesthesia in the supine position, the patient was placed prone on the operating room table and all pressure points were appropriately padded. The back was sterilely prepped and draped. The C-arm was sterilely draped and moved into position to visualize the S1 vertebral body in the AP and lateral plane. The C-arm was rotated to a Raza view to square off the superior endplate at S1. The C-arm was then rotated to the right approximately 15-20 degrees for an approach to the right S1 pedicle. The skin entry point was identified and infiltrated with 1% lidocaine using a 25-gauge 1- 1/2 inch needle. A 22-gauge 5-inch spinal needle was used to anesthetize the track to the pedicle and periosteum and confirm the introducer cannula trajectory. A skin incision was made with 15 scalpel blade. The introducer cannula with bevel tip was then introduced through the skin, subcutaneous tissue and paraspinal muscle until bony contact was made. The position was checked in the AP and lateral plane. Using a mallet, the trocar was then advanced thru the pedicle to the posterior aspect of the vertebral body using a combination of AP and lateral views to ensure appropriate traversing of the pedicle and no breaching of the pedicle medially. Once the trocar was in the posterior aspect of the S1 vertebral body, the trocar was removed from the cannula and the curved cannula assembly with the nitinol J-stylet was inserted. The spin wheel was rotated counterclockwise permitting excursion of the J-stylet. The curved cannula assembly was then advanced using a mallet in 1-2 mm increments. The J- stylet was observed to traverse the vertebral body in the AP and lateral views. The J-stylet was removed and replaced with the straight stylet to reach the BVN target. Targeting from the right side was slightly suboptimal due to hard bone, so the endpoint was roughly 60-65% anterior, while slightly right of midline. Decision was made to perform a standard RFG algorithm at this site. The stylet was then removed. The bipolar radiofrequency (RF) probe was connected to the generator and then inserted into the introducer cannula in its ablation position. The spin wheel was rotated clockwise to retract the PEEK sleeve to expose the proximal electrode on the radiofrequency probe. The BVN was then ablated using [employer]?s standard RFG algorithm. While the ablation was occurring at S1, the C-arm was moved to visualize the target at the superolateral aspect of the L5 vertebral body. The C-arm was rotated to square off the superior endplate at L5 and rotated left to obtain an oblique view. The superolateral left L5 pedicle was identified for access. The same process was utilized to place the tip of the cannular 50% anterior of the posterior wall of the L5 in the lateral view (midway between the superior and inferior endplates) and it crossed the midline of the L5 spinous process in the AP view. The stylet was then removed. The bipolar radiofrequency (RF) probe was removed from the previous vertebral body, the tip cleaned and was inserted into the introducer cannula in its ablation position. The spin wheel was rotated clockwise to retract the PEEK sleeve to expose the proximal electrode on the radiofrequency probe. The BVN was then ablated using [employer]?s targeted RFG algorithm. While the ablation was occurring at L5, the C-arm was moved to visualize the target at the superolateral aspect of the L4 vertebral body using the approach similar to the L5 vertebral body. The C-arm was rotated to square off the superior endplate at L4 and rotated approximately to the right to obtain an oblique view. The superolateral right L4 pedicle was identified, and the skin entry point identified. Same steps were followed as for L5. Target was reached when the tip of the stylet was 50% anterior of the posterior wall of the L4 in the lateral view (midway between the superior and inferior endplates) and it crossed the midline of the L4 spinous process in the AP view. The stylet was then removed. The bipolar radiofrequency (RF) probe was removed from the previous vertebral body, the tip cleaned and was inserted into the introducer cannula in its ablation position. The spin wheel was rotated clockwise to retract the PEEK sleeve to expose the proximal electrode on the radiofrequency probe. The BVN was then ablated using [employer]?s targeted RFG algorithm. While the ablation was occurring at L4, the C-arm was moved to the S1 position once again and rotated left. Decision was made to repeat the ablation at the S1 level given suboptimal position earlier. The same steps were repeated as before, except on the left side. Target was reached when the tip of the stylet was 60% anterior to the posterior wall and cross the midline of the S1 spinous process in the AP view. The spin wheel was rotated clockwise to retract the PEEK sleeve to expose the proximal electrode on the radiofrequency probe. The BVN was then ablated using [employer]?s standard RFG algorithm. With all ablations completed, the instruments were removed from the vertebral bodies. The surgical wounds were closed Mastisol and Steri-Strips and a sterile dressing was applied. The patient was returned to the supine position and the anesthesia reversed. The patient tolerated the procedure well and was brought to the recovery room. The patient was provided post-op and follow up instructions. Complications: None Estimate Blood Loss: 40 mL
[2024-04-16] MEDS: Morphine Sulfate 2 MG/ML CARTRIDGE IVPUSH (15:18)
[2024-04-16] MEDS: fentaNYL citrate/PF 100 MCG/2 ML VIAL 50 MCG IVPUSH ×2 (15:23→15:30)
[2024-04-16] MEDS: traMADoL HCL 50 MG TABLET PO (15:33)
[2024-04-16] MEDS: HYDROmorphone HCl 0.5 MG/0.5 ML SYRINGE IVPUSH ×3 (15:41→15:53)
== END 2024-04-16 17:30 | disposition home or self-care (01) ==
PROVIDERS: Nurse Practitioner Family; PCP Internal Medicine; Visit Provider Internal Medicine
PROC: (CPT 64628; principal; 2024-04-16 12:00)
DX: M54.51 Vertebrogenic low back pain (principal); G89.29 Other chronic pain; M51.371 Other intervertebral disc degeneration, lumbosacral region with lower extremity pain only; M54.16 Radiculopathy, lumbar region; G43.909 Migraine, unspecified, not intractable, without status migrainosus; F32.A Depression, unspecified; Z79.899 Other long term (current) drug therapy; Z88.6 Allergy status to analgesic agent; Z88.5 Allergy status to narcotic agent; Z98.1 Arthrodesis status; Z98.890 Other specified postprocedural states
CPT/HCPCS: 64628; 64629; 87640; 87641; C1889; J0690; J1171; J1885; J2003; J2250; J2270; J2405; J2704; J3010

== ENCOUNTER → 2024-04-16 10:10 | Outpatient (BNV) | payer OTHER, SELFPAY | PROVIDERS: PCP Internal Medicine; Visit Provider Internal Medicine | DX: M54.51 Vertebrogenic low back pain (principal) | CPT/HCPCS: 64625 ==

== ENCOUNTER 2024-04-23 10:26 | Outpatient (AMB) | payer OTHER, SELFPAY ==
--- NOTE | 2024-04-23 10:52 | A.OFFVIS_ITS ---
Vital Signs 04/23/24 10:53 Height 5 ft 9 in Weight 187 lb BMI 27.6 BP 130/64 Blood Pressure Location Lt brachial Position Sitting Respiration 16 Pulse 81 Pulse Source Pulse Oximeter Pulse Oximetry (%) 98 Oxygen Delivery Method Room Air Intake Visit Reasons: S/p L4,L5, and S1 BVN (Intracept)04/16/24 Allergies alcohol [ALCOHOL] Allergy (Severe, Verified 04/23/24 10:54) Anaphylaxis oxycodone [From PERCOCET] Allergy (Severe, Verified 04/23/24 10:54) TACHYCARDIA,SHAKING, itching aspirin Adverse Reaction (Intermediate, Verified 04/23/24 10:54) Nose Bleed ibuprofen [IBUPROFEN] Adverse Reaction (Intermediate, Verified 04/23/24 10:54) Nose Bleed Beer/ wine Allergy (Severe, Uncoded 04/23/24 10:54) anaphylaxis Opiates Allergy (Intermediate, Uncoded 04/23/24 10:54) Shaking / Nausea / Vomiting Medication List - Last Reconciled 04/23/24 by Mary Doe LPN gabapentin 600 mg PO TID ondansetron 4 mg PO Q8H PRN pantoprazole 20 mg PO DAILY PRN prednisone 10 mg (2 x 5 mg) PO BID HPI HPI S/p L4,L5, and S1 BVN (Intracept)04/16/24: Details: History of Present Illness The patient is a 38-year-old male presenting with postoperative pain management needs after a surgical procedure on his back. The procedure involved significant intervention in the lumbar region, which has led to persistent procedural discomfort. Since the surgery, the patient has experienced a 50% reduction in pain with the current regimen of tramadol and prednisone but reports ongoing pain that affects daily life. There is a history of dizziness, which the patient associates with prednisone. He also experiences psychological burdens, including sadness and depression related to chronic pain. Additionally, he noted the development of surgical scars that affect his self-image. The patient encountered issues with medication intolerance, particularly regarding a treatment he refers to as algino-OSCOGN, which he was unable to take. Pain Description - Onset: Following surgical procedure on the back - Quality: Persistent procedural pain - Location: Predominantly in the back, around the surgical site - Exacerbating Factors: Movement or pressure on the back - Relieving Factors: Tramadol provides some relief - Interference: Affects daily activities, sleep, and psychological wellbeing Physical Exam - Appears afebrile. - Alert and oriented. - Mood and affect appropriate. - Follows and participates in conversation appropriately. - Respiratory effort is unlabored. - Able to transition from sit to stand unassisted. - Ambulates with bilaterally normal heel strike and toe off. - Able to stand and walk on toes and heels. - Incision sites are well healed. Results Pain Management - Affect: Experiencing depression and sadness due to chronic pain. - Analgesia: Current use of tramadol with noted 50% improvement in pain. Prednisone has been taken but associated with dizziness. - Adverse Effects: Reports dizziness potentially related to prednisone. - Activities of Daily Living: Pain interferences with sleep and daily function. - Aberrant Drug Related Behaviors: Intolerance to algino-OSCOGN; no misuse of medications noted. [facility] Medical History Personal history of COVID-19 (~2020) Depression Hemorrhoids Bleeding hemorrhoids Migraine Surgical History Status post hemorrhoidectomy History of surgery on wrist Hx of neck surgery History of surgery (~2014) History of arthroscopy of hip Hx of arthroscopy of knee S/P carpal tunnel release Hx of cervical spine surgery (~2018) History of hernia repair Family History Father No problems noted. Mother Hypertension Social History Are you a primary urgent care physician assistant to a significant other at home: No Do you presently have visiting nurse or other home services: No Comment: tolerable Patient Tobacco Use Status: Never used Tobacco Physical Exam Vital Signs: Last Vital Signs Pulse 81 04/23/24 10:53 Resp 16 04/23/24 10:53 BP 130/64 04/23/24 10:53 Pulse Ox 98 04/23/24 10:53 Oxygen Delivery Method Room Air 04/23/24 10:53 BMI result Body Mass Index 27.6 Assessment & Plan Assessment & Plan (1) Vertebrogenic low back pain: Code(s): M54.51 - Vertebrogenic low back pain Category: Medical (2) Lumbar radiculopathy: Code(s): M54.16 - Radiculopathy, lumbar region Category: Medical Plan Plan We will continue the current analgesic regimen as it provides partial improvement with tramadol. Dizziness related to prednisone should be monitored. Psychological effects from chronic pain are noted and further discussions may be warranted. Face skin scar appearance will be observed with potential cosmetic consultations considered later. Patient was informed and verbally consented to the use of an ambient scribe for clinic note documentation during this visit. Discussion Notes During the visit, I discussed with the patient the current management of postoperative pain, which includes the continuation of tramadol and monitoring the effects of prednisone. The issue of dizziness was addressed, with an emphasis on the importance of reporting any changes. I acknowledged the emotional toll the pain has on his wellbeing and discussed potential mental health support if needed. The patient was informed that the scar's appearance might improve over time, but additional treatments were not immediately necessary. Follow-up was not scheduled, and reassurance was provided regarding the pain improvement. Patient Instructions - Continue taking tramadol as prescribed for pain relief. - Monitor symptoms of dizziness; report any worsening. - Watch for changes in scar appearance and report any concerns. - Engage in activities as tolerated, gradually increasing as pain permits. - Seek support for depression and sadness if these feelings persist. Coding Level of Care Code Est Pt Level 3 (35356) Diagnoses Vertebrogenic low back pain M54.51 Lumbar radiculopathy M54.16
[2024-04-23 10:53] VITALS: BP 130/64; PULSE 81; RESP 16; O2SAT 98; BMI 27.6
== END 2024-04-23 11:05 | disposition home or self-care (01) ==
LOC: HO.PMC 10:27
PROVIDERS: PCP Internal Medicine; Visit Provider Internal Medicine
DX: M54.51 Vertebrogenic low back pain (principal); M54.16 Radiculopathy, lumbar region
CPT/HCPCS: 99024

== ENCOUNTER → 2024-04-23 10:26 | Outpatient (BNVA) | payer OTHER, SELFPAY | PROVIDERS: PCP Internal Medicine; Visit Provider Internal Medicine | DX: M54.51 Vertebrogenic low back pain (principal); M54.16 Radiculopathy, lumbar region | CPT/HCPCS: 99212 ==

== ENCOUNTER 2024-05-19 13:38 | Outpatient (AMB) | payer OTHER, SELFPAY ==
--- NOTE | 2024-05-19 13:47 | HO.SPINEOV ---
Intake Visit Reasons: post op recurring pain Intake Note: Mr. Negron is here today c/o severe post-op pain after a lumbar ablation. Medical Data Entry Clerk Required: No Allergies alcohol [ALCOHOL] Allergy (Severe, Verified 04/23/24 10:54) Anaphylaxis oxycodone [From PERCOCET] Allergy (Severe, Verified 04/23/24 10:54) TACHYCARDIA,SHAKING, itching aspirin Adverse Reaction (Intermediate, Verified 04/23/24 10:54) Nose Bleed ibuprofen [IBUPROFEN] Adverse Reaction (Intermediate, Verified 04/23/24 10:54) Nose Bleed Beer/ wine Allergy (Severe, Uncoded 04/23/24 10:54) anaphylaxis Opiates Allergy (Intermediate, Uncoded 04/23/24 10:54) Shaking / Nausea / Vomiting Assessment & Plan Assessment & Plan (1) Vertebrogenic low back pain: Code(s): M54.51 - Vertebrogenic low back pain Category: Medical Plan Mr Negron came back into the office today for follow-up. This is a gentleman we have done cervical surgery, and has previous history of an anterior lumbar interbody fusion with Dr. Dobson at [facility]. He has had persistent postoperative back pain that is been unmanageable. We sent him up to the pain management Center for consideration of spinal cord stimulator. He ended up undergoing Intracept, and unfortunately he feels like the pain only got worse. I explained to him that I am not sure about the recovery from that procedure and what the expectations would be in that he should go back and see Dr. Fung for further discussion. Unfortunately had nothing else to offer him. His MRI was reviewed and again does not show any evidence of further disc pathology or adjacent segment disease so we have no surgery to offer him for his back pain. Total amount of time spent in this visit was 10 minutes in discussion of symptoms, lumbar imaging results and subsequent plan of care Neftali Peoples MD,PhD [facility] Coding Level of Care Code Est Pt Level 2 (23593) Diagnoses Vertebrogenic low back pain M54.51
--- OUTSIDE RECORDS SUMMARY | 2024-05-19 15:42 | XMS_ITS | Clinical Summary ---
Author Organization [facility] Address [address] [place] [address] Care Team Providers Care Health Information Specialist Name Role Phone Levy Whitney MD Primary Care Provider [phone] Social History Tobacco Use Types Packs/Day Years [...] age to complete this topic Care Teams Health Information Specialist Relationship Specialty Start Date End Date Levy Whitney MD [address] [place] [address] [address] [place], [place] [phone] PCP - General Graphic Art Designer 03/24/19
--- OUTSIDE RECORDS SUMMARY | 2024-05-19 15:42 | XMS_ITS | Encounter Summary ---
Author Organization [employer] Address [address] [facility] 7t [place] [address] Care Team Providers Care Nuclear Test Technician Name Role Phone Unavailable Primary Care Provider Unavailabl e Reason for Visit * Reason Onset Date Comments rs no show appt 03/04/2024 Encounter Details Date Type Department Care Team (Late st Contact Info) Description 03/04/2024 Telephone [facility] ADULT DENTAL [address] [place], [place] [phone] Francis Lozano, DMD [address] [place], [place] [phone] rs no show appt Social History Tobacco [...] Care Team (Late st Contact Info) Description 07/16/2024 2:00 PM EDT Office Visit [facility]ULT [facility] [address] [place] [address] Kate Monae [address] [place] [address] documented as of this encounter Visit Diagnoses Not on filedocumented in this encounter
--- OUTSIDE RECORDS SUMMARY | 2024-05-19 15:42 | XMS_ITS | Encounter Summary ---
Author Organization [email or web address] Address [address] [facility] 7t [place] [address] Care Team Providers Care Bi Analyst Name Role Phone Aaron, Megan OD Primary Care Provider [phone] Encounter Details Date Type Department Care Team (Latest Contact Info) Description 12/10/2020 Abstract [facility] CONVERSIONS Dental, Provider, DDS Social [...] Description 07/16/2024 2:00 PM EDT Office Visit [facility] ADULT DENTAL [address] [place] [address] Dov, Kate [address] [place] [address] documented as of this encounter Visit Diagnoses Not on filedocumented in this encounter Care Teams Bi Analyst Relationship Specialty Start Date End Date Samantha Walker OD [address] [place] [address] PCP - General Optometry 11/10/16 02/11/23 documented as of this encounter
--- OUTSIDE RECORDS SUMMARY | 2024-05-19 15:42 | XMS_ITS | Encounter Summary ---
Author Organization [employer] Address [address] [facility] 7t [place] [address] Care Team Providers Care Channeler Name Role Phone Samantha Walker OD Primary Care Provider [phone] Reason for Visit * Reason Onset Date Comments Appointment 04/03/2022 Encounter Details Date Type Department Care Team (Late st Contact Info) Description 04/03/2022 Telephone [facility] ADULT DENTAL [address] [place], [place] [phone] Robin Lopez, DMD [address] [place], [place] [phone] Appointment Social History Tobacco Use Types Packs/Day [...] Description 07/16/2024 2:00 PM EDT Office Visit [facility] ADULT DENTAL [address] [place], [place] [phone] Dov Kate [address] [place] [address] documented as of this encounter Visit Diagnoses Not on filedocumented in this encounter Care Teams Channeler Relationship Specialty Start Date End Date Samantha Walker OD [address] [place] [id number] PCP - General Optometry 11/10/16 02/11/23 documented as of this encounter
--- OUTSIDE RECORDS SUMMARY | 2024-05-19 15:42 | XMS_ITS | Clinical Summary ---
Author Organization [address] [place] [address] Address [address] [place] [address] Phone Care Team Providers Care Critical Care Unit Manager Name Role Phone Levy Whitney MD Primary Care Provider [phone] Allergies No known active allergies Medications No known medications Encounters Date Type Department Care Team Description 03/11/2024 9:30 AM EST Office Visit Orthopedic [address] [place] [address] Philly Momin PA Left hand pain (Primary Dx) 02/19/2024 9:00 AM EST Office Visit Orthopedic Surgery [address] [place] [address] Philly Momin PA Left hand [...] 11/19/2023 9:59 AM EDT Plan of Treatment Health Maintenance Due Date Last Done Comments DTaP,Tdap,and Td Vaccines (1 - Tdap) 2005 Hepatitis B Vaccines (1 of 3 - 19+ 3-dose series) 2005 Cholesterol Screening (Lipid Panel) 01/08/2022 Depression Screening 01/08/2022 HIV Screening 01/08/2022 Hepatitis C Screening 01/08/2022 Social Influencers of Health Screening 01/08/2022 COVID-19 Vaccine (4 - 2023-2 5 season) 2023 12/21/2021, 11/03/2020, 10/13/2020 Influenza Vaccine (Season Ended) 2024 11/16/2020, 11/01/2016, 11/05/2015 HIB Vaccines Aged Out No [...] age to complete this topic Meningococcal B Vaccine Aged Out No l onger eligible based on patient's age to complete [...] - Final from Last 3 Months Insurance [facility] PUBLIC PLANS Care Teams Critical Care Unit Manager Relationship Specialty Start Date End Date Levy Whitney MD [address] [place] [address] Dr Rina [place] PCP - General Internal Medicine 10/12/17
--- OUTSIDE RECORDS SUMMARY | 2024-05-19 15:42 | XMS_ITS | Clinical Summary ---
Author Organization [email or web address] Address [address] 7t [place] [address] Care Team Providers Care Senior Branch Manager Name Role Phone Unavailable Primary Care Provider [...] Type Department Care Team Description 03/04/2024 Telephone [facility] ADULT DENTAL [address] [place] [address] Francis Lozano DMD rs no show appt 02/21/2024 Telephone [facility] ADULT DENTAL [address] [place], [place] [phone] Shanice Harman from Last 3 Months Social [...] Description 07/16/2024 2:00 PM EDT Office Visit [facility] ADULT DENTAL [address] [place] [address] Dov, Kate [address] [place] [address] Health Maintenance Due Date Last Done Comments [...] Most Recently Relevant to Health Maintenance Insurance [facility] MEDICAID STAND ADULT
== END 2024-05-19 15:31 | disposition home or self-care (01) ==
PROVIDERS: PCP Internal Medicine; Visit Provider Physician Assistant
DX: M54.51 Vertebrogenic low back pain (principal)
CPT/HCPCS: 99212

== ENCOUNTER → 2024-05-19 13:38 | Outpatient (BNVA) | payer OTHER, SELFPAY | PROVIDERS: PCP Internal Medicine; Visit Provider Physician Assistant | DX: M54.51 Vertebrogenic low back pain (principal) | CPT/HCPCS: 99212 ==

== ENCOUNTER 2024-05-30 11:53 | Outpatient (AMB) | payer OTHER, SELFPAY ==
--- NOTE | 2024-05-30 11:58 | A.OFFVIS_ITS ---
Vital Signs 05/30/24 12:00 Height 5 ft 9 in Weight 187 lb BMI 27.6 BP 129/65 Blood Pressure Location Lt brachial Position Sitting Respiration 16 Pulse 81 Pulse Source Pulse Oximeter Pulse Oximetry (%) 98 Oxygen Delivery Method Room Air Intake Visit Reasons: Back Pain Cashier And Salesperson Required: No Allergies alcohol [ALCOHOL] Allergy (Severe, Verified 05/30/24 12:01) Anaphylaxis oxycodone [From PERCOCET] Allergy (Severe, Verified 05/30/24 12:01) TACHYCARDIA,SHAKING, itching aspirin Adverse Reaction (Intermediate, Verified 05/30/24 12:01) Nose Bleed ibuprofen [IBUPROFEN] Adverse Reaction (Intermediate, Verified 05/30/24 12:01) Nose Bleed Beer/ wine Allergy (Severe, Uncoded 05/30/24 12:01) anaphylaxis Opiates Allergy (Intermediate, Uncoded 05/30/24 12:01) Shaking / Nausea / Vomiting Medication List - Last Reconciled 05/30/24 by Mary Doe LPN gabapentin 600 mg PO TID pantoprazole 20 mg PO DAILY PRN HPI HPI Back Pain: Details: History of Present Illness The patient is a 38-year-old male presenting with worsening postoperative and chronic back pain. He notes postoperative tingling from the lobe to the neck, with initial pain reduction, but currently the condition has deteriorated to the worst pain he has experienced. He describes the pain as bora to his postsurgical pain, with a burning sensation and difficulty remaining standing for more than 15 minutes. Decreased functionality is noted, with discomfort in both sitting and lying positions. The patient has a noted surgical history of spinal surgery, from which he expected a decrease in pain. 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 Medications adverse reactions include oxycodone, while hydromorphone has been tolerated well without side effects. Emotional distress connected to the current pain is significant. Pain Description - Onset and Timing: Worsening after initial post-surgery recovery. - Quality and Character: Tingling, burning sensation, bora to postsurgical pain. - Location: From the back, particularly post-surgical site, tingling from the lobe to neck. - Radiation: From lobe to neck. - Exacerbating Factors: Standing longer than 15 minutes, unknown mechanical aggravators. - Relieving Factors: None noted effectively, hydromorphone tolerated best. - Interference with Activities: Unable to work as a truck crane operator, difficulty standing, sitting, and lying down. Physical Exam - Appears afebrile. - Alert and oriented. - Mood and affect appropriate. - Follows and participates in conversation appropriately. - Respiratory effort is unlabored. - Able to transition from sit to stand unassisted. - Ambulates with bilaterally normal heel strike and toe off. - Able to stand and walk on toes and heels. Results Pain Management - Affect: Significant emotional distress due to pain, reportedly worst pain experienced. - Analgesia: Postoperative pain management initially improved then worsened; allergy to oxycodone, hydromorphone tolerated. - Adverse Effects: Allergic response to oxycodone. - Activities of Daily Living: Severe limitations noted; difficulty standing, sitting, worsened functionality post-surgery. - Aberrant Drug Related Behaviors: None noted; hydromorphone retained but not abused. [facility] Medical History Personal history of COVID-19 (~2020) Depression Hemorrhoids Bleeding hemorrhoids Migraine Surgical History Status post hemorrhoidectomy History of surgery on wrist Hx of neck surgery History of surgery (~2014) History of arthroscopy of hip Hx of arthroscopy of knee S/P carpal tunnel release Hx of cervical spine surgery (~2018) History of hernia repair Family History Father No problems noted. Mother Hypertension Social History Are you a primary healthcare recruiter to a significant other at home: No Do you presently have visiting nurse or other home services: No Comment: tolerable Patient Tobacco Use Status: Never used Tobacco Physical Exam Vital Signs: Last Vital Signs Pulse 81 05/30/24 12:00 Resp 16 05/30/24 12:00 BP 129/65 05/30/24 12:00 Pulse Ox 98 05/30/24 12:00 Oxygen Delivery Method Room Air 05/30/24 12:00 BMI result Body Mass Index 27.6 Assessment & Plan Assessment & Plan (1) Lumbar radiculopathy: Code(s): M54.16 - Radiculopathy, lumbar region Category: Medical (2) Postlaminectomy syndrome: Code(s): M96.1 - Postlaminectomy syndrome, not elsewhere classified Category: Medical Plan Plan - Proceed with a trial run of Spinal Cord Stimulator to evaluate efficacy in relieving pain, subject to psychological clearance. - Patient to coordinate with psychologist for necessary clearance documentation for insurance. - Encouragement provided towards psychological support given significant emotional distress related to pain. - Discussion regarding medication alternatives noted, with hydromorphone continued for management of acute episodes. Patient was informed and verbally consented to the use of an ambient scribe for clinic note documentation during this visit. Discussion Notes I discussed with the patient the rationale and potential benefits of trialing a Spinal Cord Stimulator, including temporary placement for initial evaluation. The explanation included the possibility of a significant increase in pain relief, potentially greater than 50%, and options after trial evaluation, which include permanent implantation if successful. Benefits, risks, and procedural details were covered, ensuring understanding including a psychological evaluation required to proceed. Hydromorphone is recognized as well-tolerated by the patient; the potential for psychological evaluation and coordination with a therapist was clarified and facilitated by providing necessary documentation. I emphasized the importance of pursuing the clearance with his psychologist for insurance purposes and offered brochures to support his understanding. I affirmed ongoing support in his recovery process and discussed potential medication alternatives considering the patient's allergies and side effects to oxycodone. Patient Instructions - Contact your psychologist to arrange for a psychological evaluation and complete the required insurance paperwork. - Review provided brochures for more information about the spinal cord stimulator. - Avoid using any pain medications that you have a known allergy to, like oxycodone. - Use hydromorphone only as directed, as it is effective for acute pain relief without causing side effects. - Be cautious with physical activity, particularly standing for long durations, until pain management efficacy improves. - Follow up with the office after the trial period of the Spinal Cord Stimulator and report back on the effectiveness of the pain relief. - Contact the clinic if pain worsens or if there are concerns about medication side effects. - Reach out to psychological support if emotional distress becomes unmanageable. Coding Level of Care Code Est Pt Level 4 (21073) Diagnoses Lumbar radiculopathy M54.16 Postlaminectomy syndrome M96.1
[2024-05-30 12:00] VITALS: BP 129/65; PULSE 81; RESP 16; O2SAT 98; BMI 27.6
--- OUTSIDE RECORDS SUMMARY | 2024-05-30 12:49 | XMS_ITS | Clinical Summary ---
Author Organization [employer] Address [address] [facility] [address] [place] [address] Care Team Providers Care Manager Public Name Role Phone Unavailable Primary Care Provider [...] Type Department Care Team Description 03/04/2024 Telephone [facility] ADULT DENTAL [address] [facility] [address] Francis Lozano DMD rs no show appt from Last 3 Months Social History Tobacco [...] Upcoming Encounters Date Type Department Care Team (Yamilka st Contact Info) Description 07/16/2024 2:00 PM EDT Office Visit [facility] ADULT DENTAL [address] [place] [address] Dov, Kate [address] [place] [address] Health Maintenance Due Date Last Done Comments [...] to Health Maintenance Insurance [facility] MED EYE MED [facility] MEDICAID STAND ADULT
--- OUTSIDE RECORDS SUMMARY | 2024-05-30 12:49 | XMS_ITS | Clinical Summary ---
Author Organization [address] [facility] Address [address] [place] [address] Phone Care Team Providers Care Satellite Dish Repairer Name Role Phone Levy Whitney MD Primary Care Provider [phone] Allergies No known active allergies Medications No known medications Encounters Date Type Department Care Team Description 03/11/2024 9:30 AM EST Office Visit Orthopedic Surgery [facility] [address] [facility] [address] [place] [address] Philly Momin PA Left hand [...] Influencers of Health Screening 01/08/2022 COVID-19 Vaccine ( - 2023-2 5 season) [...] on patient's age to complete this topic Insurance [facility] [employer] [place] [id number] Care Teams Satellite Dish Repairer Relationship Specialty Start Date End Date Levy Whitney MD [address] [place] [address] Dr Rina [place] PCP - General Internal Medicine 10/12/17
--- OUTSIDE RECORDS SUMMARY | 2024-05-30 12:49 | XMS_ITS | Encounter Summary ---
Author Organization [employer] Address [address] [facility] 7t [place] [address] Care Team Providers Care Journeyman Pipe Fitter Name Role Phone Samantha Walker OD Primary Care Provider [phone] Reason for Visit * Reason Onset Date Comments Appointment 04/03/2022 Encounter Details Date Type Department Care Team (Late st Contact Info) Description 04/03/2022 Telephone [facility] CHC ADULT DENTAL [address] [place], [place] [phone] Robin Lopez, DDS [address], [place] [phone] Appointment Social History Tobacco Use Types Packs/Day [...] Description 07/16/2024 2:00 PM EDT Office Visit [facility] ADULT DENTAL [address] [place] [address] Dov, Kate [address] [place] [address] documented as of this encounter Visit Diagnoses Not on filedocumented in this encounter Care Teams Journeyman Pipe Fitter Relationship Specialty Start Date End Date Samantha Walker OD [address] [place] [address] PCP - General Optometry 11/10/16 02/11/23 documented as of this encounter
--- OUTSIDE RECORDS SUMMARY | 2024-05-30 12:49 | XMS_ITS | Encounter Summary ---
Author Organization [employer] Address [address] [facility] 7t [place] [address] Care Team Providers Care Applications Sales Representative Name Role Phone Aaron, Megan OD Primary Care Provider [phone] Encounter Details Date Type Department Care Team (Latest Contact Info) Description 12/10/2020 Abstract [facility] CONVERSIONS Dental, Provider, DDS Social History Tobacco [...] Description 07/16/2024 2:00 PM EDT Office Visit [facility] ADULT DENTAL [address] [place] [address] Dov, Kate [address] [place] [address] documented as of this encounter Visit Diagnoses Not on filedocumented in this encounter Care Teams Applications Sales Representative Relationship Specialty Start Date End Date Samantha Walker OD [address] [place] [address] PCP - General Optometry 11/10/16 02/11/23 documented as of this encounter
--- OUTSIDE RECORDS SUMMARY | 2024-05-30 12:49 | XMS_ITS | Encounter Summary ---
Author Organization [employer] Address [address] [facility] 7t [place] [address] Care Team Providers Care Hr Payroll Coordinator Name Role Phone Unavailable Primary Care Provider Unavailabl e Reason for Visit * Reason Onset Date Comments rs no show appt 03/04/2024 Encounter Details Date Type Department Care Team (Late st Contact Info) Description 03/04/2024 Telephone [facility] ADULT DENTAL [address] [place], [place] [phone] Francis Lozano, DMD [address] [place], [place] [phone] rs no show appt Social History Tobacco [...] EDT Office Visit [facility] ADULT [facility] [address] [place] [address] Kate Monae [address] [place] [address] documented as of this encounter Visit Diagnoses Not on filedocumented in this encounter
--- OUTSIDE RECORDS SUMMARY | 2024-05-30 12:49 | XMS_ITS | Clinical Summary ---
Author Organization [facility] [place] [facility] Address [address] [place] [address] Care Team Providers Care Commissioner Of Conciliation Name Role Phone Levy Whitney MD Primary Care Provider [phone] Social History Tobacco Use Types Packs/Day Years [...] age to complete this topic Care Teams Commissioner Of Conciliation Relationship Specialty Start Date End Date Levy Whitney MD [address] [place] [address] [address] [place], [place] [phone] PCP - General Accounting Professional 03/24/19
== END 2024-05-30 12:44 | disposition home or self-care (01) ==
LOC: HO.PMC 11:54
PROVIDERS: PCP Internal Medicine; Visit Provider Internal Medicine
DX: M54.16 Radiculopathy, lumbar region (principal); M96.1 Postlaminectomy syndrome, not elsewhere classified
CPT/HCPCS: 99214

== ENCOUNTER → 2024-05-30 11:53 | Outpatient (BNVA) | payer OTHER, SELFPAY | PROVIDERS: PCP Internal Medicine; Visit Provider Internal Medicine | DX: M54.16 Radiculopathy, lumbar region (principal); M96.1 Postlaminectomy syndrome, not elsewhere classified | CPT/HCPCS: 99212 ==

== ENCOUNTER 2024-08-06 09:57 | Day surgery (SDC) | payer OTHER, SELFPAY ==
--- OUTSIDE RECORDS SUMMARY | 2024-07-24 15:37 | XMS_ITS | Encounter Summary ---
Author Organization [employer] Address [address] [facility] 7t [place] [address] Care Team Providers Care Cna Pct Name Role Phone Samantha Walker OD Primary Care Provider [phone] Reason for Visit * Reason Onset Date Comments Appointment 04/03/2022 Encounter Details Date Type Department Care Team (Late st Contact Info) Description 04/03/2022 Telephone [facility] CHC ADULT DENTAL [address] [place], [place] [phone] Robin Lopez, DDS [address] [place] [address] Appointment Social History Tobacco Use Types Packs/Day [...] encounter Miscellaneous Notes * Telephone Encounter - aMli Patel - 04/03/2022 1:27 PM EST Patient [...] Care Team (Late st Contact Info) Description 01/26/2025 8:00 AM EST Office Visit [facility] ADULT DENTAL [address] [place] [address] Dov, Kate [address] [place] [address] documented as of this encounter Visit Diagnoses Not on filedocumented in this encounter Care Teams Cna Pct Relationship Specialty Start Date End Date Samantha Walker OD [address] [place] [id number] PCP - General Optometry 11/10/16 02/11/23 documented as of this encounter
[2024-08-04 09:56] VITALS: BMI 27.6
--- NOTE | 2024-08-05 09:17 | P.CONAN_ITS ---
Documented by User: Gini Koenig NP 08/05/24 09:18 HPI - Anesthesia Eval Consult details Narrative: 38yo M for Spinal Cord Stimulation Trial [facility] Active Problems Active Problems: All Active Problems Postlaminectomy syndrome (Acute) Vertebrogenic low back pain (Acute) Lumbar radiculopathy (Acute) History of spinal surgery (Acute) Cervical spondylosis (Acute) Cervical radiculopathy (Acute) Precordial chest pain (Acute) Bleeding hemorrhoids (Acute) Hemorrhoids (Acute) History of hernia repair (Acute) Migraine (Acute) Past Medical History Medical History Post laminectomy syndrome Depression Hemorrhoids Migraine Family History Family History Father No problems noted. Mother Hypertension Family history of problems with anesthesia: No Surgical History Surgical History Status post hemorrhoidectomy History of surgery on wrist Hx of neck surgery History of surgery (~2014) History of arthroscopy of hip Hx of arthroscopy of knee S/P carpal tunnel release Hx of cervical spine surgery (~2018) History of hernia repair History of Problems with Anesthesia: No Social History Social History Are you a primary transition of care specialist to a significant other at home: No Do you presently have visiting nurse or other home services: No Comment: tolerable Patient Tobacco Use Status: Never used Tobacco Use of substances other than those prescribed or required for medical reasons: No Advance Directives: No Advance Directives Information Provided: Yes Poor oral hygiene: No Meds Allergies Allergy/AdvReac Type Severity Reaction Status Date / Time alcohol (ALCOHOL) Allergy Severe Anaphylaxis Verified 08/04/24 09:53 (from beer/wine) oxycodone (From PERCOCET) Allergy Severe TACHYCARDIA,SHAKING, Verified 05/30/24 12:01 itching aspirin AdvReac Intermediate Nose Bleed Verified 05/30/24 12:01 ibuprofen (IBUPROFEN) AdvReac Intermediate Nose Bleed Verified 05/30/24 12:01 Home Medications ?Medication ?Instructions ?Recorded ?Confirmed ?Last Taken ?Type pantoprazole 20 mg tablet,delayed 20 mg PO DAILY PRN G astric Reflux 04/11/23 08/04/24 Unknown History release Exam Height,Weight and Vital Signs: Height 5 ft 9 in Weight 84.822 kg Assessment and Plan Assessment Anesthesia Assessment: Chart Reviewed Final Anesthetic Review Family History of Problems with Anesthesia: No History of Problems with Anesthesia: No Documented by User: Noelle Witt MD 08/06/24 14:01 [facility] Past Medical History Medical History Post laminectomy syndrome Depression Hemorrhoids Migraine Family History Family History Father No problems noted. Mother Hypertension Surgical History Surgical History Status post hemorrhoidectomy History of surgery on wrist Hx of neck surgery History of surgery (~2014) History of arthroscopy of hip Hx of arthroscopy of knee S/P carpal tunnel release Hx of cervical spine surgery (~2018) History of hernia repair Social History Social History Are you a primary transition of care specialist to a significant other at home: No Do you presently have visiting nurse or other home services: No Comment: tolerable Patient Tobacco Use Status: Never used Tobacco Use of substances other than those prescribed or required for medical reasons: No Advance Directives: No Advance Directives Information Provided: Yes Poor oral hygiene: No Meds Allergies Allergy/AdvReac Type Severity Reaction Status Date / Time alcohol (ALCOHOL) Allergy Severe Anaphylaxis Verified 08/04/24 09:53 (from beer/wine) oxycodone (From PERCOCET) Allergy Severe TACHYCARDIA,SHAKING, Verified 05/30/24 12:01 itching aspirin AdvReac Intermediate Nose Bleed Verified 05/30/24 12:01 ibuprofen (IBUPROFEN) AdvReac Intermediate Nose Bleed Verified 05/30/24 12:01 Home Medications ?Medication ?Instructions ?Recorded ?Confirmed ?Last Taken ?Type pantoprazole 20 mg tablet,delayed 20 mg PO DAILY PRN G astric Reflux 04/11/23 08/04/24 Unknown History release Exam Airway Mallampati Class: III (full casarez) TM Dist: >3cm Neck ROM: Full Loose/Missing/Broken Teeth: No Heart: RRR Lungs: CTA Assessment and Plan Assessment Anesthesia Assessment: Anesthesia Plan Discussed Final Anesthetic Review NPO: Yes ASA Class: II Final Preanesthetic Review: Meds/Allgs Chart Reviewed, Consent Obtained/Reviewed and Anes Risks/Benef Reviewed Patient Risk: Low Procedure Risk: Low Anesthetic Plan Anesthetic Plan: MAC: Disposition: Standard PACU
--- NOTE | ~2024-08-06 | FL_ITS ---
EXAMINATION: FL GUIDANCE ONLY HISTORY: SPINAL CORD STIM TRIAL COMPARISON: None available. TECHNIQUE: Fluoroscopy time: 5.07 minutes. Cumulative Dose: 113.39 mGy. DAP: 12.703 mGym2 Images: 3. FINDINGS: Fluoroscopic spot films demonstrate a spinal stimulator in place with the tip of the lead at the level of the superior endplate of T7. FL/FL guidance in OR IMPRESSION: Fluoroscopy during procedure. Please see procedure report for additional information. Electronically signed by: Jonh Gil MD 08/06/2024 03:14 PM EDT
[2024-08-06 11:23] VITALS: BP 115/65; PULSE 61; RESP 16; TEMP 36.2; O2SAT 97
[2024-08-06] MEDS: Lactated Ringers 1,000 ML 100 ML IVCONT (11:33)
--- NOTE | 2024-08-06 12:08 | MHC.SHP ---
Pre-Procedural Eval Section A - 24 Hr Update-Section A only Date of Service: 08/06/24 The patient is an INPATIENT: No Changes since office visit: Yes Patient answered all questions The patient has been examined within 24 hours of the surgical procedure. The History & Physical has been completed within 30 days and I have reviewed it.: No Section B - Complete if H&P > 30 days Chief Complaint: Postlaminectomy syndrome, not elsewhere classified Relevant Family History (Specify if Yes): No Relevant Social History: None Present Medications: see Short Stay Collaborative assessment Medical History: No relevant PMH History of Previous Operations: No relevant previous surgery Allergies: Allergies Allergy/AdvReac Type Severity Reaction Status Date / Time alcohol (ALCOHOL) Allergy Severe Anaphylaxis Verified 08/04/24 09:53 (from beer/wine) oxycodone (From PERCOCET) Allergy Severe TACHYCARDIA,SHAKING, Verified 05/30/24 12:01 itching aspirin AdvReac Intermediate Nose Bleed Verified 05/30/24 12:01 ibuprofen (IBUPROFEN) AdvReac Intermediate Nose Bleed Verified 05/30/24 12:01 Review of Systems Sugical H&P ROS: Negative: Constitution, Cardiovascular and Respiratory Exam Surgical H&P Exam: Normal: HEENT, Normal: Heart and Normal: Lungs Plan Diagnosis/Plan: Unchanged I have reviewed the history and physical and performed a pertinent physical examination on my patient. No changes have occurred unless specified. Time Spent With Patient Time: Total time managing care of this patient today ____ minutes.
[2024-08-06 12:53] LABS: MRSA Nasal PCR NEGATIVE (Negative); SA Nasal PCR NEGATIVE (Negative)
[2024-08-06 15:00] VITALS: BP 106/50; PULSE 60; RESP 12; TEMP 36.3; O2SAT 97
[2024-08-06 15:15] VITALS: BP 98/57; PULSE 53; RESP 16; O2SAT 97
[2024-08-06 15:30] VITALS: BP 99/56; PULSE 51; RESP 16; O2SAT 99
--- NOTE | 2024-08-06 15:30 | PM.OP ---
Brief Operative Note Date of Service: 08/06/24 Pre-op diagnosis: Postlaminectomy syndrome Post-op diagnosis: same Procedure: Lumbar spinal cord stimulation trial Implants: [employer] 16 contact trial leads Surgeon: Dayne Fung MD Anesthesia: MAC Was an Retread Mold Operator used for this Procedure?: No Estimated blood loss (mL): 4 Pathology: none sent Condition: stable Disposition: PACU
[2024-08-06 15:45] VITALS: BP 111/60; PULSE 54; RESP 16; O2SAT 99
--- NOTE | 2024-08-06 15:47 | P.OP_ITS ---
Operative Note Operative Note Date of Service: 08/06/24 Narrative: Preop Diagnosis: Postlaminectomy Syndrome Postop Diagnosis: Same Percutaneous Spinal Cord Stimulator Trial, Lumbar After obtaining written consent, pre-procedure blood pressure and heart rate were recorded and are in the nursing record for review. A peripheral IV was started. Antibiotics, cefazolin 2 gram, were given intraoperatively. The patient was placed in a prone position.? The patient was sedated by the anesthesiologist. The thoracolumbar area was widely prepped with ChloraPrep, allowed to dry and draped in sterile fashion. Fluoroscopy was used to identify t he target interlaminar spaces and appropriate needle insertion sites. The skin and subcutaneous tissue was anesthetized with 0.5% lidocaine. Two separate 14 gauge Epimed coude epidural needles were then advanced from this point in a paramedian approach to the epidural space opening at T12/L1 interspace, where loss of resistance was found using air. No paresthesias were elicited with needle placement. No CSF or heme was present upon needle placement. A guide wire was then used to confirm placement into the epidural space at each level under live fluoroscopy. The 1x16 stimulator lead wire was then threaded to the top of T7 in the right and left parasagittal positions under live fluoroscopy. The leads advanced midline and dorsally. The needles were then completely removed under live fluoroscopy. The stimulator wires were then secured with steristrips, Mastisol, gauze and tegaderm for skin dressing. The patient tolerated the procedure well and no complications were encountered. Following the procedure the patient's vital signs were stable. The patient was discharged home in good condition after being given discharge instructions. Time Out: Immediately prior to the procedure, the following was verbally confirmed that there is a signed consent form and that the correct patient, planned procedure, site and side are consistent with documentation and that necessary equipment and/or blood products are available prior to the start of the case. Complications: none EBL: <2 cc
[2024-08-06 16:00] VITALS: BP 102/71; PULSE 61; RESP 16; TEMP 36.1; O2SAT 97
== END 2024-08-06 16:10 | disposition home or self-care (01) ==
PROVIDERS: PCP Internal Medicine; Visit Provider Internal Medicine
PROC: (CPT 63650; principal; 2024-08-06 13:40)
DX: M96.1 Postlaminectomy syndrome, not elsewhere classified (principal); M54.16 Radiculopathy, lumbar region; G89.29 Other chronic pain; G43.909 Migraine, unspecified, not intractable, without status migrainosus; F32.9 Major depressive disorder, single episode, unspecified; Z79.899 Other long term (current) drug therapy; Z88.6 Allergy status to analgesic agent; Z88.5 Allergy status to narcotic agent; Z88.8 Allergy status to other drugs, medicaments and biological substances; Z98.890 Other specified postprocedural states
CPT/HCPCS: 63650 ×2; 87640; 87641; C1897; J0131; J0690; J2003; J2250; J2704; J3010

== ENCOUNTER → 2024-08-06 09:57 | Outpatient (BNV) | payer OTHER, SELFPAY | PROVIDERS: PCP Internal Medicine; Visit Provider Internal Medicine | DX: M96.1 Postlaminectomy syndrome, not elsewhere classified (principal) | CPT/HCPCS: 63650 ==

== ENCOUNTER 2024-08-13 09:22 | Outpatient (AMB) | payer OTHER, SELFPAY ==
--- NOTE | 2024-08-13 09:30 | A.OFFVIS_ITS ---
Vital Signs 08/13/24 09:32 Height 5 ft 9 in Weight 194 lb BMI 28.6 BP 148/76 H Blood Pressure Location Lt brachial Position Sitting Respiration 16 Pulse 65 Pulse Source Pulse Oximeter Pulse Oximetry (%) 95 Oxygen Delivery Method Room Air Intake Visit Reasons: S/p [employer] SCS Trial 08/06/24 Activities Counselor Required: No Allergies alcohol (ALCOHOL) Allergy (Severe, Verified 08/13/24 09:33) Anaphylaxis (from beer/wine) oxycodone (From PERCOCET) Allergy (Severe, Verified 08/13/24 09:33) TACHYCARDIA,SHAKING, itching aspirin Adverse Reaction (Intermediate, Verified 08/13/24 09:33) Nose Bleed ibuprofen (IBUPROFEN) Adverse Reaction (Intermediate, Verified 08/13/24 09:33) Nose Bleed Medication List - Last Reconciled 08/13/24 by Mary Doe LPN pantoprazole 20 mg PO DAILY PRN HPI HPI S/p [employer] SCS Trial 08/06/24: Details: History of Present Illness The patient is a 38-year-old male presenting with issues related to a spinal cord stimulation trial. The trial provided approximately 80% relief from his usual symptoms, indicating significant improvement. During the trial, the patient removed the dressing on his own, leading to concerns about lead migration on the left side. On examination, there was mild clear discharge from the left lead insertion site, which was tender to palpation, raising concerns for a possible infection. The patient reported no allergies to antibiotics, and a course of Keflex 750 mg three times a day for seven days was prescribed as a precautionary measure against soft tissue infection. Pain Description - Pain relief: Approximately 80% relief from usual symptoms with spinal cord stimulation trial - Pain location: Left side, with concerns of lead migration - Pain exacerbation: Dressing removal led to concerns of lead migration and possible infection Physical Exam - Neurological: Mild clear discharge from left lead insertion site, tenderness to palpation Pain Management - Analgesia: Spinal cord stimulation trial provided 80% relief - Activities of Daily Living: Patient reported improved comfort but noted difficulty sitting and sleeping properly [facility] Medical History Post laminectomy syndrome Depression Hemorrhoids Migraine Surgical History Status post hemorrhoidectomy History of surgery on wrist Hx of neck surgery History of surgery (~2014) History of arthroscopy of hip Hx of arthroscopy of knee S/P carpal tunnel release Hx of cervical spine surgery (~2018) History of hernia repair Family History Father No problems noted. Mother Hypertension Social History Are you a primary healthcare advisory services manager to a significant other at home: No Do you presently have visiting nurse or other home services: No Comment: tolerable Patient Tobacco Use Status: Never used Tobacco Physical Exam Vital Signs: Last Vital Signs Pulse 65 08/13/24 09:32 Resp 16 08/13/24 09:32 BP 148/76 H 08/13/24 09:32 Pulse Ox 95 08/13/24 09:32 Oxygen Delivery Method Room Air 08/13/24 09:32 BMI result Body Mass Index 28.6 Assessment & Plan Assessment & Plan (1) Postlaminectomy syndrome: Code(s): M96.1 - Postlaminectomy syndrome, not elsewhere classified Category: Medical Plan Plan - Prescribed Keflex 750 mg three times a day for seven days to prevent soft tissue infection at the left lead insertion site. - Advised patient to avoid removing dressing and to follow post-procedure care instructions to prevent complications. - Plan to proceed with the spinal cord stimulation implant, targeting the T7-8 interspace, after ensuring no infection is present. Patient was informed and verbally consented to the use of an ambient scribe for clinic note documentation during this visit. Discussion Notes I discussed with the patient the importance of not removing the dressing and following post-procedure care instructions to prevent complications such as infection. We reviewed the plan to proceed with the spinal cord stimulation implant targeting the T7-8 interspace, contingent upon resolving any infection concerns. I emphasized the need for close communication and adherence to care instructions to ensure optimal outcomes. Patient Instructions - Take Keflex 750 mg three times a day for seven days. - Do not remove the dressing; contact the clinic if there are concerns. - Follow all post-procedure care instructions to prevent complications. Medications: New cephalexin 750 mg PO Q8H 21 caps 0RF Coding Level of Care Code Est Pt Level 3 (01955) Diagnoses Postlaminectomy syndrome M96.1
[2024-08-13 09:32] VITALS: BP 148/76; PULSE 65; RESP 16; O2SAT 95; BMI 28.6
--- OUTSIDE RECORDS SUMMARY | 2024-08-13 09:45 | XMS_ITS | Clinical Summary ---
Author Organization [address] [place] [address] Address [address] [place] [address] Phone Care Team Providers Care Associate Product Manager Name Role Phone Levy Whitney MD Primary Care Provider [phone] Allergies No known active allergies Medications No known medications Surgical History Surgery Date Site/Laterality Comments HAND [...] 2023 12/21/2021, 11/03/2020, 10/13/2020 Influenza Vaccine (#1) 2024 , 11/01/2016, 11/05/2015 HIB Vaccines Aged Out [...] 5 Years) and At-Risk Patients (6 to 49 Years) Aged Out No longer eligible b ased on patient's age to complete this topic RSV Immunization Patients Under 20 months Aged Out No longer eligible b ased on patient's age to complete this topic Varicella Vaccines Aged Out No longer eligible based on patient's age to complete this topic Insurance [facility] [employer] Care Teams Associate Product Manager Relationship Specialty Start Date End Date Levy Whitney MD [address] [place] [address] Dr Rina [place] PCP - General Internal Medicine 10/12/17
--- OUTSIDE RECORDS SUMMARY | 2024-08-13 09:45 | XMS_ITS | Encounter Summary ---
Author Organization [employer] Address [address] [facility] 7t [place] [address] Care Team Providers Care Instant Print Operator Name Role Phone Samantha Walker OD Primary Care Provider [phone] Reason for Visit * Reason Onset Date Comments Appointment 04/03/2022 Encounter Details Date Type Department Care Team (Late st Contact Info) Description 04/03/2022 Telephone [facility] CHC ADULT DENTAL [address] [place], [place] [phone] Robin Lopez, DDS [address] [place] [address] Appointment Social History Tobacco Use Types Packs/Day [...] Description 01/26/2025 8:00 AM EST Office Visit [facility] ADULT DENTAL [address] [place] [address] Dov, Kate [address] [place] [address] documented as of this encounter Visit Diagnoses Not on filedocumented in this encounter Care Teams Instant Print Operator Relationship Specialty Start Date End Date Samantha Walker OD [address] [place] [address] PCP - General Optometry 11/10/16 02/11/23 documented as of this encounter
--- OUTSIDE RECORDS SUMMARY | 2024-08-13 09:45 | XMS_ITS | Clinical Summary ---
Author Organization [facility] Address [address] [place] [address] Care Team Providers Care Bell Tier Name Role Phone Levy Whitney MD Primary Care Provider [phone] Social History Tobacco Use Types Packs/Day Years [...] (1 - Tdap) 2005 Influenza Vaccine (#1) 2024 Pneumococcal Vaccine Aged Out No long er eligible based on patient's age to complete this topic RSV Ped < 20 months Aged Out No longe r eligible based on patient's age to complete this topic Care Teams Bell Tier Relationship Specialty Start Date End Date Levy Whitney MD [address] [place] [address] [address] [place], [place] [phone] PCP - General Ice Plant Operator 03/24/19
== END 2024-08-13 09:48 | disposition home or self-care (01) ==
LOC: HO.PMC 09:26
PROVIDERS: PCP Internal Medicine; Visit Provider Internal Medicine
DX: M96.1 Postlaminectomy syndrome, not elsewhere classified (principal)
CPT/HCPCS: 99024

== ENCOUNTER → 2024-08-13 09:22 | Outpatient (BNVA) | payer OTHER, SELFPAY | PROVIDERS: PCP Internal Medicine; Visit Provider Internal Medicine | DX: M96.1 Postlaminectomy syndrome, not elsewhere classified (principal) | CPT/HCPCS: 99212 ==

== ENCOUNTER → 2024-10-08 09:14 | Day surgery (SDC) | payer MEDICARE, MEDICAID, SELFPAY ==
--- OUTSIDE RECORDS SUMMARY | 2024-09-16 14:33 | XMS_ITS | Encounter Summary ---
Author Organization [employer] Address [address] [facility] 7t [place] [address] Care Team Providers Care Transitions Manager Name Role Phone Samantha Walker OD Primary Care Provider [phone] Reason for Visit * Reason Onset Date Comments Appointment 04/03/2022 Encounter Details Date Type Department Care Team (Late st Contact Info) Description 04/03/[address] [facility] CHC ADULT DENTAL [address] [place], [place] [phone] Robin Lopez, DDS [address] [place] [address] Appointment Social History Tobacco Use Types Packs/Day [...] Care Team (Late st Contact Info) Description 09/19/2024 9:00 AM EDT Office Visit [facility] ADULT DENTAL [address] [place] [address] Dov, Kate [address] [place] [address] 09/26/2024 11:00 AM EDT Office Visit [facility] ADULT DENTAL [address] [place] [address] Dov, Kate [address] [place] [address] 02/11/2025 9:00 AM EST Office Visit [facility] ADULT DENTAL [address] [place] [address] Dov, Kate [address] [place] [address] documented as of this encounter Visit Diagnoses Not on filedocumented in this encounter Care Teams Transitions Manager Relationship Specialty Start Date End Date Samantha Walker OD [address] [place] [address] PCP - General Optometry 11/10/16 02/11/23 documented as of this encounter
--- OUTSIDE RECORDS SUMMARY | 2024-09-16 14:34 | XMS_ITS | Clinical Summary ---
Author Organization [facility] Address [address] [place] [address] Care Team Providers Care Document Management Analyst Name Role Phone Levy Whitney MD Primary Care Provider [phone] Social History Tobacco Use Types Packs/Day Years [...] age to complete this topic Care Teams Document Management Analyst Relationship Specialty Start Date End Date Levy Whitney MD [address] [place] [address] [address] [place], [place] [phone] PCP - General Associate Business Analyst 03/24/19
--- OUTSIDE RECORDS SUMMARY | 2024-09-16 14:34 | XMS_ITS | Clinical Summary ---
Author Organization [address] [place] [address] Address [address] [place] [address] Phone Care Team Providers Care Small Stock Facer Name Role Phone Levy Whitney MD Primary Care Provider [phone] Allergies No known active allergies Medications No [...] series) 2005 Cholesterol Screening (Lipid Panel) 01/08/2022 HIV Screening 01/08/2022 Hepatitis C Screening 01/08/2022 Social Influencers of Health Screening 01/08/2022 COVID-19 Vaccine (4 - 2023-2 5 season) 2023 12/21/2021, 11/03/2020, 10/13/2020 Depression Screening 02/06/2024 Influenza Vaccine (#1) 2024 , 11/01/2016, 11/05/2015 [...] patient's age to complete this topic Insurance [facility] [employer] Care Teams Small Stock Facer Relationship Specialty Start Date End Date Levy Whitney MD [address] [place] [address] Dr Rina [place] PCP - General Internal Medicine 10/12/17
--- OUTSIDE RECORDS SUMMARY | 2024-09-16 14:34 | XMS_ITS | Clinical Summary ---
Author Organization [facility] Address [address] [facility] [address] [place] [address] Phone Care Team Providers Care Workers' Compensation Claims Examiner Name Role Phone Levy Whitney MD Primary Care Provider Allergies Active Allergy Reactions Criticality Noted Date Comments Aspirin 10/04/2016 Other reaction(s): nose bleed Oxycodone-Acetaminophen 11/24/2021 Medications pantoprazole (PROTONIX) 40 MG tablet Take 40 mg by mouth as needed. Active Active Problems Problem Noted Date Diagnosed Date Femoroacetabular impingement of left hip 022 Tear of left acetabular labrum 05/11/2021 Left hip pain 09/11/2017 Social History Tobacco Use Types Packs/Day Years Used Date Smoking Tobacco: Never Smokeless Tobacco: Never Alcohol Use Standard Drinks/Week Comments No 0 (1 standard drink = 0.6 oz pur e alcohol) Education Answer Date Recorded Are you interested in more education? Not on khoi e 06/02/2022 Are you concerned about learning? Not on file 06/02/2022 No 06/02/2022 No 06/02/2022 Digital Access Answer Date Recorded No 06/30/2022 No 06/30/2022 Reliable internet access at home? Not on file 06/30/2022 Device with a working camera? Not on file Sex and Gender Information Value Date Recorded Sex Assigned at Male 05/31/2021 3:20 PM EDT Legal Sex Male 9:10 PM EDT Gender Identity Male 05/31/2021 3:20 PM EDT Sexual Orientation Not on file Last Filed Vital Signs Vital Sign Reading Time Taken Comments Blood Pressure 118/84 11/24/2021 9:57 PM EDT Pulse 65 11/24/2021 9:57 PM EDT Temperature 36.6 C (97.9 F) 11/24/2021 9:57 PM EDT Respiratory Rate 18 11/24/2021 9:57 PM EDT Oxygen Saturation 99% 11/24/2021 9:57 PM EDT Inhaled Oxygen Concentration - - Weight 81.6 kg (180 lb) 05/31/2021 3:18 PM EDT Height 175.3 cm (5' 9 ) 05/31/2021 3:18 PM EDT Body Mass Index 26.58 05/31/2021 3:18 PM EDT Plan of Treatment Health Maintenance Due Date Last Done Comments Adult Td,Tdap Booster 1986 LIPID PANEL 1986 DEPRESSION SCREENING 1998 HEPATITIS C SCREENING 2004 HIV ONE-TIME SCREENING (18-6 5 YEARS) 2004 COVID-19 VACCINE (3 - 2023-2 5 season) 2023 11/03/2020, 10/13/2020 SMOKING STATUS SCREENING (On ce After 26 Yrs) Completed 11/24/2021 HEPATITIS A VACCINES Aged Out No long er eligible based on patient's age to complete this topic HIB VACCINES Aged Out No longer eligi ble based on patient's age to complete this topic MENINGOCOCCAL VACCINES (ACWY) Aged Out No longer eligible based on patient's age to complete this topic MENINGOCOCCAL VACCINES (B) Aged Out N o longer eligible based on patient's age to complete this topic PNEUMOCOCCAL VACCINES (0-49 years) Aged Out No longer eligible b ased on patient's age to complete this topic Medical Devices Implanted Type Area Tetryl Dissolver Operator Device Identifier Shelf Expiration Date Model / Serial / Lot Linx Esophagus Description:Magnetic ring at gastroesophageal junction, MRI safe to 1.5T Insurance [facility] [employer] [employer] [facility] [employer] Care Teams Workers' Compensation Claims Examiner Relationship Specialty Start Date End Date Levy Whitney MD [address] [place] [address] [place] [address] PCP - General Internal Medicine 03/12/19 Additional Source Comments The information contained in this document represents components of the legal health record. It is not the complete legal health record.[facility]
[2024-10-03 08:24] VITALS: BMI 27.3
--- NOTE | 2024-10-07 08:53 | HO.ANESPROP2 ---
HPI - Anesthesia Eval Consult details Narrative: 38yo M for Spinal Cord Stimulation Implant s/p trial 08/2024 with [employer] PMF[employer] Active Problems Active Problems: All Active Problems Postlaminectomy syndrome (Acute) Vertebrogenic low back pain (Acute) Lumbar radiculopathy (Acute) History of spinal surgery (Acute) Cervical spondylosis (Acute) Cervical radiculopathy (Acute) Precordial chest pain (Acute) Bleeding hemorrhoids (Acute) Hemorrhoids (Acute) History of hernia repair (Acute) Migraine (Acute) Past Medical History Medical History Post laminectomy syndrome Depression Hemorrhoids Migraine Family History Family History Father No problems noted. Mother Hypertension Family history of problems with anesthesia: No Surgical History Surgical History Status post hemorrhoidectomy History of surgery on wrist Hx of neck surgery History of surgery (~2014) History of arthroscopy of hip Hx of arthroscopy of knee S/P carpal tunnel release Hx of cervical spine surgery (~2018) History of hernia repair History of Problems with Anesthesia: No Social History Social History Are you a primary career development coordinator/teacher to a significant other at home: No Do you presently have visiting nurse or other home services: No Comment: tolerable Patient Tobacco Use Status: Never used Tobacco Meds Allergies Allergy/AdvReac Type Severity Reaction Status Date / Time alcohol (ALCOHOL) Allergy Severe Anaphylaxis Verified 08/13/24 09:33 (from beer/wine) oxycodone (From PERCOCET) Allergy Severe TACHYCARDIA,SHAKING, Verified 08/13/24 09:33 itching aspirin AdvReac Intermediate Nose Bleed Verified 08/13/24 09:33 ibuprofen (IBUPROFEN) AdvReac Intermediate Nose Bleed Verified 08/13/24 09:33 Home Medications ?Medication ?Instructions ?Recorded ?Confirmed ?Last Taken ?Type pantoprazole 20 mg tablet,delayed 20 mg PO DAILY PRN Gastric Reflux 04/11/23 08/13/24 Unknown History release Exam Height,Weight and Vital Signs: Height 5 ft 9 in Weight 84 kg Assessment and Plan Assessment Anesthesia Assessment: Chart Reviewed Final Anesthetic Review Family History of Problems with Anesthesia: No History of Problems with Anesthesia: No
== END ==
LOC: HO.SSS 09:17
PROVIDERS: Visit Provider Internal Medicine
DX: M96.1 Postlaminectomy syndrome, not elsewhere classified (principal); Z53.8 Procedure and treatment not carried out for other reasons

== ENCOUNTER 2024-11-28 08:08 | Outpatient (AMB) | payer MEDICARE, MEDICAID, SELFPAY ==
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
[2024-11-28 08:16] VITALS: BP 100/60; PULSE 67; RESP 16; TEMP 36.6; O2SAT 96; BMI 28.8
== END 2024-11-28 08:38 | disposition home or self-care (01) ==
LOC: HO.HMCHD 08:09
PROVIDERS: PCP Student in an Organized Health Care Education/Training Program; Visit Provider Student in an Organized Health Care Education/Training Program
DX: R53.83 Other fatigue (principal); S05.90XA Unspecified injury of unspecified eye and orbit, initial encounter

== ENCOUNTER 2024-11-28 08:40 | Outpatient (REF) | payer MEDICARE, MEDICAID, SELFPAY ==
--- OUTSIDE RECORDS SUMMARY | 2024-11-27 10:00 | XMS_ITS | Encounter Summary ---
Author Organization [employer] Address [address] [facility] 7t [place] [address] Care Team Providers Care Interim Controller Name Role Phone Unavailable Primary Care Provider Unavailabl e Reason for Visit * Reason Comments Filling Encounter Details Date Type Department Care Team ([facility] st Contact Info) Description 11/27/2024 10:00 AM EDT Office Visit [facility] ADULT DENTAL [address] [place] [address] Francis Lozano DMD [address] [place], [place] [id number] Social History Tobacco Use Types Packs/Day Years [...] AM EDT documented as of this encounter Progress Notes * Francis Lozano DMD - 11/27/2024 10:00 AM EDT C/C: Pt claimed that the filling of #27 came out again after eating a sandwich Inform pt that we will restore with composite one more time. Tooth#27 will need crown if the composite filling break off again. Pt understand the situation No Lido, existed unsounded enamel is being excavated, Gluma placed, etch and haney, composite A-3 ispacked, carved, and smoothed, occlusion check. Pt feels fine and likes the esthetic David documented in this encounter Plan of Treatment Upcoming Encounters Date Type Department Care Team (Late st Contact Info) Description 12/01/2024 3:30 PM EDT Office Visit [facility] ADULT DENTAL [address] [place], [place] [phone] Jessica RobinCATHIE remyS [address] [place], [place] [phone] 03/10/2025 1:00 PM EST Office Visit [facility] OPTOMETRY [address] [place] [address] Samanhta Walker, OD [address] [place] [address] Scheduled Orders Name Type Priority Associated Diagnoses Orde r Schedule 27 27 CROWN - PORCELAIN/CERAMIC Dental Routine 1 Occurrences starting 11/27/2024 27 27 CROWN PREP Dental Routine 1 Occurr ences starting 11/27/2024 documented as of this encounter Procedures Procedure Name Priority Date/Time Associated Diagnosis Comments NO CHARGE PROCEDURE Routine 11/27/2024 10:00 AM EDT documented in this encounter Visit Diagnoses Not on filedocumented in this encounter
--- OUTSIDE RECORDS SUMMARY | 2024-11-28 09:12 | XMS_ITS | Encounter Summary ---
Author Organization [employer] Address [address] [facility] [address] [place] [address] Care Team Providers Care Supply Chain Business Analyst Name Role Phone Samantha Walker OD Primary Care Provider [phone] Reason for Visit * Reason Onset Date Comments Appointment 04/03/2022 Encounter Details Date Type Department Care Team (Late st Contact Info) Description 04/03/2022 Telephone [facility] ADULT DENTAL [address] [place], [place] [phone] Robin Lopez, DDS [address] [place] [address] Appointment Social History Tobacco Use Types Packs/Day [...] Description 12/01/2024 3:30 PM EDT Office Visit [facility] ADULT DENTAL [address] [place], [place] [phone] Robin Lopez, DDS [address] [place], [place] [phone] 03/10/2025 1:00 PM EST Office Visit [facility] OPTOMETRY [address] [place] [address] Samantha Walker, RICCI [address] [place] [address] documented as of this encounter Visit Diagnoses Not on filedocumented in this encounter Care Teams Supply Chain Business Analyst Relationship Specialty Start Date End Date Samantha Walker, RICCI [address] [place] [id number] PCP - General Optometry 11/10/16 02/11/23 documented as of this encounter
--- OUTSIDE RECORDS SUMMARY | 2024-11-28 09:13 | XMS_ITS | Encounter Summary ---
Author Organization [employer] Address [address] [place] [address] 7t [place] [address] Care Team Providers Care Manager Financial Services Name Role Phone Samantha Walker OD Primary Care Provider [phone] Encounter Details Date Type Department Care Team (Latest Contact Info) Description 12/10/2020 Abstract [facility] CONVERSIONS Dental, Provider, DDS Social [...] 3:30 PM EDT Office Visit [facility] CHC ADULT DENTAL [address] [place] [address] LeslieuRobin, DDS [address] [place] [address] 03/10/2025 1:00 PM EST Office Visit [facility] OPTOMETRY [address] [place] [address] Samantha Walker OD [address] [place] [address] documented as of this encounter Visit Diagnoses Not on filedocumented in this encounter Care Teams Manager Financial Services Relationship Specialty Start Date End Date Samantha Walker OD [address] [place] [address] PCP - General Optometry 11/10/16 02/11/23 documented as of this encounter
--- OUTSIDE RECORDS SUMMARY | 2024-11-28 09:14 | XMS_ITS | Encounter Summary ---
Author Organization [employer] Address [address] [facility] [address] [place] [address] Care Team Providers Care Retail Department Reset Name Role Phone Unavailable Primary Care Provider Unavailabl e Encounter Details Date Type Department Care Team (Latest Contact Info) Description 11/27/2024 Travel Social History Tobacco Use Types Packs/Day Years [...] Description 12/01/2024 3:30 PM EDT Office Visit [facility] ADULT DENTAL [address] [place] [address] Robin Lopez, DDS [address] [place] [address] 03/10/2025 1:00 PM EST Office Visit [facility] OPTOMETRY [address] [place] [address] Aaron, Samantha, OD [address] [place] [address] documented as of this encounter Visit Diagnoses Not on filedocumented in this encounter
--- OUTSIDE RECORDS SUMMARY | 2024-11-28 09:14 | XMS_ITS | Encounter Summary ---
Author Organization [facility] Address [address] [place] [address] Phone Care Team Providers Care Manager Mountain Name Role Phone Levy Whitney MD Primary Care Provider Encounter Details Date Type Department Care Team (Late st Contact Info) Description 12/08/2019 Procedure Pass [facility], X-Ray - [address] [address] Social History Tobacco Use Types Packs/Day Years [...] PM EDT Sexual Orientation Not on file documented as of this encounter Plan of Treatment Not on file documented as of this encounter Visit Diagnoses Not on filedocumented in this encounter Care Teams Manager Mountain Relationship Specialty Start Date End Date Levy Whitney MD [address] [place] [address] Dr BURCH WANDY Arellano [address] PCP - General Internal Medicine 03/12/19 documented as of this encounter Additional Source Comments The information contained in this document represents components of the legal health record. It is not the complete legal health record.[facility]
--- OUTSIDE RECORDS SUMMARY | 2024-11-28 09:14 | XMS_ITS | Encounter Summary ---
Author Organization [employer] Address [address] [facility] 7t [place] [address] Care Team Providers Care Tax Services Professional Name Role Phone Unavailable Primary Care Provider Unavailabl e Reason for Visit * Reason Onset Date Comments filling fell out 11/05/2024 Encounter Details Date Type Department Care Team (Late st Contact Info) Description 11/05/2024 Telephone [facility] [address] [place] [address] Michelle Blanco filling fell out Social History Tobacco Use Types Packs/Day Years [...] * Telephone Encounter - Mali Patel - 11/05/2024 12:07 PM EDT Patient came in on 10/31 and filling fell out. Patient would like to come in sooner than appointment offered on 11/27. Please reach out to patient to verify if patient can be squeezed in DR documented in this encounter Plan of Treatment Upcoming Encounters Date Type Department Care Team (Late st Contact Info) Description 12/01/2024 3:30 PM EDT Office Visit [facility]ULT [facility] [address] [place] [address] Robin Lopez DDS [address] [place] [address] 03/10/2025 1:00 PM EST Office Visit [facility] [address] [place], [place] [phone] Samanhta Walker, OD [address] [place] [address] documented as of this encounter Visit Diagnoses Not on filedocumented in this encounter
--- OUTSIDE RECORDS SUMMARY | 2024-11-28 09:14 | XMS_ITS | Clinical Summary ---
Author Organization [facility] Address [address] [facility] [address] [place] [address] Phone Care Team Providers Care Ap Processor Name Role Phone Levy Whitney MD Primary [...] HIV ONE-TIME SCREENING (18-6 5 YEARS) 2004 INFLUENZA VACCINE (#1) 2024 , 11/01/2016, 11/05/2015 COVID-19 VACCINE (3 - 2024-2 6 season) 2024 11/03/2020, 10/13/2020 SMOKING STATUS SCREENING (On ce [...] this topic Medical Devices Implanted Type Area Tire Maintenance Technician Device Identifier Shelf Expiration Date Model / Serial / Lot Linx Esophagus Description:Magnetic ring at gastroesophageal junction, MRI safe to 1.5T Insurance [facility] [employer] TOGETHER [employer] TO[employer]HER [employer] [facility] TOGETHER MCO [facility] TOGETHER MCO Care Teams Ap Processor Relationship Specialty Start Date End Date Levy Whitney MD [address] [place] [address] [place] [address] PCP - General Internal Medicine 03/12/19 Additional Source Comments The information contained in this document represents components of the legal health record. It is not the complete legal health record.[facility]
--- OUTSIDE RECORDS SUMMARY | 2024-11-28 09:14 | XMS_ITS | Encounter Summary ---
Author Organization [facility] Address [address] [place] [address] Phone Care Team Providers Care Preparation Room Manager Name Role Phone Levy Whitney MD Primary Care Provider Encounter Details Date Type Department Care Team (Late st Contact Info) Description 12/08/2019 Procedure Pass [address] [address] Social History Tobacco Use Types Packs/Day Years [...] on filedocumented in this encounter Care Teams Preparation Room Manager Relationship Specialty Start Date End Date Levy Whitney MD [address] [place] [address] Dr BURCH WANDY Arellano [address] PCP - General Internal Medicine 03/12/19 documented as of this encounter Additional Source Comments The information contained in this document represents components of the legal health record. It is not the complete legal health record.[facility]
--- OUTSIDE RECORDS SUMMARY | 2024-11-28 09:14 | XMS_ITS | Clinical Summary ---
Author Organization [employer] Address [address] [facility] 7t [place] [address] Care Team Providers Care Sales And Marketing Director Name Role Phone Unavailable Primary Care Provider Unavailabl e Allergies Active Allergy Reactions Criticality Noted Date Comments Aspirin 10/04/2016 Other reaction(s): nose bleed Ethanol 11/26/2023 Other Reaction(s): trouble breathing - throat closes up Patient reports he has an allergy to alcohol that he drinks. Patient denies any allergy to rubbing alcohol or alcohol wipes. Ibuprofen 11/10/2016 Oxycodone 11/10/2016 Oxycodone-Acetaminophen 11/24/2021 Medications SUMAtriptan (Imitrex) 25 MG tablet Take 1 tablet by mouth. Active pantoprazole (ProtoNix) 20 MG EC tablet Take 2 tablets by mouth at bed time. Active gabapentin (Neurontin) 600 MG tablet 600 mg. 04/13/2023 Active amoxicillin (Amoxil) 500 MG capsule Take 1 capsule (500 mg) by mouth every 8 (eight) hours for 7 days. 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 07/16/2024 Dental calculus 07/16/2024 Periodontal disease 07/16/2024 Dental abscess 07/16/2024 Gingival bleeding 07/16/2024 Subgingival dental calculus 07/16/2024 Encounters Date Type Department Care Team Description 11/27/2024 10:00 AM EDT Office Visit [facility] [address] [place], [place] [phone] Francis Lozano DMD 11/27/2024 Travel 11/05/2024 Telephone [facility] [address] [place] [address] Michelle Blanco filling fell out 11/03/2024 3:00 PM EDT Office Visit [facility] ADULT [facility] [address] [place] [address] Octavio Robbins DDS 10/31/2024 10:00 AM EDT Office Visit [facility] [address] [place] [address] Francis Lozano DMD 09/19/2024 9:00 AM EDT Office Visit [facility] [address] [place] [address] Kate Monae Dental calculus (Primary Dx); Periodontal disease 09/18/2024 Travel from Last 3 Months Social History Tobacco [...] Sign Reading Time Taken Comments Blood Pressure 122/68 09/19/2024 8:34 AM EDT Pulse - - Temperature - - Respiratory Rate - - Oxygen Saturation - - Inhaled Oxygen Concentration - - Weight - - Height - - Body Mass Index - - Plan of Treatment Upcoming Encounters Date Type Department Care Team (Late st Contact Info) Description 12/01/2024 3:30 PM EDT Office Visit [facility] ADULT D[facility] [address] [place] [address] Robin Lopez, DDS [address] [place] [address] 03/10/2025 1:00 PM EST Office Visit [facility] [address] [place] [address] Samantha Walker, OD 230 [place] [address] Health Maintenance Due Date Last Done Comments Depression Screening 1986 HIV Screening 1986 Lipid Panel 1986 SDOH Screening 1986 Disability Screening 1986 Alcohol/Substance Use Screening 1998 Family Planning (PISQ) 2001 HPV Vaccines (1 - Male 3-dose series) 2001 Hepatitis C Screening 2004 DTaP/Tdap/Td Vaccines (1 - Tdap) 2005 Hepatitis A Vaccines (1 of 2 - Risk 2-dose series) 2005 Hepatitis B Vaccines (1 of 3 - 19+ 3-dose series) 2005 COVID-19 Vaccine (4 - season) 2024 12/21/2021, 11/03/2020, 10/13/2020 Influenza Vaccine (#1) 2024 , 11/01/2016, 11/05/2015 Dental Prophylaxis 01/16/2025 07/16/2024, 08/07/2023 Dental Oral Exam 05/01/2025 10/31/2024, 07/16/2024 Dental X-Ray: Bitewings 11/04/2025 11/04/19 25, 10/31/2024, 09/19/2024, Additional history exists Tobacco Screening 11/27/2025 11/27/2024 Dental X-Ray: Full Mouth 08/07/2026 08/07/2023 Zoster [...] Years) and At-Risk Patients (6 to 49) Years Aged Out No longer eligible based on patient's age to complete this topic RSV under 20 months Aged Out No longe r eligible based on patient's age to complete this topic Rotavirus Vaccines Aged Out No longer eligible based on patient's age to complete this topic Procedures Procedure Name Priority Date/Time Associated Diagnosis Comments NO CHARGE PROCEDURE Routine 11/27/2024 1 0:00 AM EDT BITEWING - SINGLE RADIOGRAPHIC IMAGE Routine 11/03/2024 3:00 PM EDT 18,19,20 INTRAORAL - PERIAPICAL FIRST RADIOGRAPHIC IMAGE Routine 11/03/2024 3:00 PM EDT CONSULTATION - DIAGNOSTIC SERVICE PROVIDED BY DENTIST OR PHYSICIAN OTHER THAN REQUESTING DENTIST OR PHYSICIAN Routine 11/03/2024 3:00 PM EDT CASE PRESENTATION, DETAILED AND EXTENSIVE TREATMENT PLANNING Routine 11/03/2024 3:00 PM EDT INTRAORAL - PERIAPICAL EACH ADDITIONAL RADIOGRAPHIC IMAGE Routine 10/31/2024 10:00 AM EDT INTRAORAL - PERIAPICAL FIRST RADIOGRAPHIC IMAGE Routine 10/31/2024 10:00 AM EDT BITEWINGS - 4 RADIOGRAPHIC IMAGES Routine 10/31/2024 10:00 AM EDT PERIODIC ORAL EVALUATION - ESTABLISHED PATIENT Routine 10/31/2024 10:00 AM EDT CASE PRESENTATION, DETAILED AND EXTENSIVE TREATMENT PLANNING Routine 10/31/2024 10:00 AM EDT 27 JIE RESIN-BASED COMPOSITE - 3 SURF, ANTERIOR Routine 10/31/2024 10:00 AM EDT LL PERIODONTAL SCALING AND ROOT PLANING - 1 TO 3 TEETH PER QUADRANT Routine 09/19/2024 9:00 AM EDT Dental calculus Periodontal disease UL PERIODONTAL SCALING AND ROOT PLANING - 1 TO 3 TEETH PER QUADRANT Routine 09/19/2024 9:00 AM EDT Dental calculus Periodontal disease BITEWINGS - 2 RADIOGRAPHIC IMAGES Routine 09/19/2024 9:00 AM EDT Dental calculus Periodontal disease CASE PRESENTATION, DETAILED AND EXTENSIVE TREATMENT PLANNING Routine 09/19/2024 9:00 AM EDT Dental calculus Periodontal disease PROPHYLAXIS - ADULT Routine 07/16/2024 2 :00 PM EDT Dental calculus Periodontal disease Gingival bleeding Subgingival dental calculus INTRAORAL - COMPLETE SERIES OF RADIOGRAPHIC IMAGES Routine 08/07/2023 8:00 AM EDT from Last 3 Months or Most Recently Relevant to Health Maintenance Insurance [facility] STANDARD MEDICARE DENTAL-[facility] MEDICAID STAND ADULT [facility] [place] [address]
--- OUTSIDE RECORDS SUMMARY | 2024-11-28 09:14 | XMS_ITS | Clinical Summary ---
Author Organization [facility] Address [address] [place] [address] Care Team Providers Care Hse Manager Name Role Phone Levy Whitney MD Primary Care Provider [phone] Social History Tobacco Use Types Packs/Day Years [...] age to complete this topic Care Teams Hse Manager Relationship Specialty Start Date End Date Levy Whitney MD [address] [place] [address] Dr [address] [place], [place] [phone] PCP - General Commissary Steward 03/24/19
--- OUTSIDE RECORDS SUMMARY | 2024-11-28 09:14 | XMS_ITS | Encounter Summary ---
Author Organization [employer] Address [address] [facility] 7t [place] [address] Care Team Providers Care Leasing Associate Name Role Phone Unavailable Primary Care Provider Unavailabl e Reason for Visit * Reason Onset Date Comments rs no show appt 03/04/2024 Encounter Details Date Type Department Care Team (Late st Contact Info) Description 03/04/2024 Telephone [facility] ADULT D[facility] [address] [place], [place] [phone] Francis Lozano, DMD [address] [place], [place] [phone] rs no show appt Social History Tobacco [...] Description 12/01/2024 3:30 PM EDT Office Visit [facility]ULT D[facility] [address] [place] [address] Robin Lopez, CATHIES [address] [place] [address] 03/10/2025 1:00 PM EST Office Visit [facility] [address] [place], [place] [phone] Samantha Walker, OD [address] [place] [address] documented as of this encounter Visit Diagnoses Not on filedocumented in this encounter
--- OUTSIDE RECORDS SUMMARY | 2024-11-28 09:14 | XMS_ITS | Clinical Summary ---
Author Organization [address] [place] [address] Address [address] [place] [address] Phone Care Team Providers Care Process Owner Name Role Phone Levy Whitney MD Primary Care Provider [phone] Allergies No known active allergies Medications No [...] of 3 - 19+ 3-dose series) 2005 HPV Vaccines (1 - 3-dose SCD M series) 2013 Cholesterol Screening (Lipid Panel) 01/08/2022 HIV Screening 01/08/2022 Hepatitis C Screening 01/08/2022 Social Influencers of Health Screening 01/08/2022 Depression Screening 02/06/2024 COVID-19 Vaccine (4 - 2024-2 6 season) 2024 12/21/2021, 11/03/2020, 10/13/2020 Influenza Vaccine (#1) 2024 , 11/01/2016, 11/05/2015 RSV Immunization Adult Patients (1 - 1-dose 75+ series) 2061 HIB [...] patient's age to complete this topic Insurance [facility] PUBLIC PLANS Care Teams Process Owner Relationship Specialty Start Date End Date Levy Whitney MD [address] [place] [address] Dr Rina [place] PCP - General Internal Medicine 10/12/17
[2024-11-28 11:40] LABS: MANUAL DIFF FLAG NO
[2024-11-28 11:59] LABS: Hematocrit 47.1 % (42.0-52.0); Hemoglobin 15.4 g/dl (14.0-18.0); Imm Gran Abs Auto 0.05 X10*3/uL (0.00-0.03); Imm Gran Pct Auto 0.4 % (0.0-0.4); Lymphocytes Absolute Auto 2.2 X10*3/uL (1.2-4.9); Mean Corpuscular HGB Conc 32.7 g/dl (31.0-36.0); Mean Corpuscular Hemoglobin 29.2 pg (27.0-33.0); Mean Corpuscular Volume 89.4 fL (80.0-98.0); NRBC Abs Auto 0.000 X10*3/uL (0.0-0.012); NRBC Pct Auto 0.0 /100WBC (0.0-0.2); Platelet Count 228 X10*3/uL (160-400); Red Blood Count 5.27 X10*6/uL (4.60-5.80); White Blood Count 11.4 X10*3/uL (4.8-10.8)
[2024-11-28 12:31] LABS: Alanine Aminotransferase 45 U/L (0-40); Albumin Level 4.4 g/dL (3.5-5.0); Alkaline Phosphatase 110 U/L (39-117); Anion Gap 8 (12-20); Aspartate Amino Transferase 37 U/L (5-37); Blood Urea Nitrogen 13 mg/dL (9-16); Calcium 9.3 mg/dL (8.4-10.2); Carbon Dioxide 29 mmol/L (22-29); Chloride 108 mmol/L (96-108); Cholesterol 186 mg/dL (<200); Estimated Glomerular Filt Rate > 60; HDL Cholesterol 35 mg/dL (>40); Potassium 4.7 mmol/L (3.3-5.1); Sodium 140 mmol/L (135-145); Total Protein 7.5 g/dL (6.5-8.0); Triglycerides 114 mg/dL (<150)
[2024-11-29 03:36] LABS: Syphilis Screen Nonreactive (Nonreactive)
[2024-11-29 03:51] LABS: HBc Num1 0.20 S/CO (0.00-0.79); Hepatitis A Antibody IgM 0.17 Index (0-0.79); ~Hepatitis A Antibody IgM Nonreactive (Nonreactive)
[2024-11-29 04:28] LABS: HBS Num1 34.40 mIU/mL (0-7.99); HBsAGNum1 0.39 S/CO (0.00-0.99); HIV Num 1 0.06 S/CO (0.00-0.99); Hepatitis B Surface Antigen Negative (Negative); ~HepC Num1 0.11 S/CO (0.00-0.79); ~Hepatitis B Surface Antibody REACTIVE (Nonreactive); ~Hepatitis C Antibody Nonreactive (Nonreactive)
== END 2024-11-28 08:41 | disposition home or self-care (01) ==
LOC: HO.10HDL 08:40
PROVIDERS: Visit Provider Student in an Organized Health Care Education/Training Program
DX: Z11.4 Encounter for screening for human immunodeficiency virus [HIV] (principal); Z20.2 Contact with and (suspected) exposure to infections with a predominantly sexual mode of transmission; Z76.89 Persons encountering health services in other specified circumstances; Z13.6 Encounter for screening for cardiovascular disorders; Z13.1 Encounter for screening for diabetes mellitus; Z13.21 Encounter for screening for nutritional disorder; Z13.29 Encounter for screening for other suspected endocrine disorder
CPT/HCPCS: 36415; 80053; 80061; 82306; 83036; 84443; 85025; 86704; 86706; 86709; 86780; 86803; 87340; 87389; 99202

== ENCOUNTER → 2024-12-18 19:30 | Outpatient (REF) | payer MEDICARE, MEDICAID, SELFPAY ==
--- OUTSIDE RECORDS SUMMARY | 2024-12-18 20:57 | XMS_ITS | Encounter Summary ---
Author Organization [facility] Address [address] [place] [address] Phone Care Team Providers Care Gear Roller Name Role Phone Levy Whitney MD Primary Care Provider Encounter Details Date Type Department Care Team (Late st Contact Info) Description 12/08/2019 Procedure Pass [facility], X-Ray - [address] [address] Social History Tobacco Use Types Packs/Day Years [...] on filedocumented in this encounter Care Teams Gear Roller Relationship Specialty Start Date End Date Levy Whitney MD [address] [place] [address] Dr BURCH WANDY Arellano [address] PCP - General Internal Medicine 03/12/19 documented as of this encounter Additional Source Comments The information contained in this document represents components of the legal health record. It is not the complete legal health record.[facility]
--- OUTSIDE RECORDS SUMMARY | 2024-12-18 20:57 | XMS_ITS | Clinical Summary ---
Author Organization [facility] Address [address] [place] [address] Care Team Providers Care Sweatband Cutting Machine Operator Name Role Phone Levy Whitney MD Primary Care Provider [phone] Social History Tobacco Use Types Packs/Day Years [...] age to complete this topic Care Teams Sweatband Cutting Machine Operator Relationship Specialty Start Date End Date Levy Whitney MD [address] [place] [address] Dr [address] [place], [place] [phone] PCP - General Bisque Cleaner 03/24/19
--- OUTSIDE RECORDS SUMMARY | 2024-12-18 20:57 | XMS_ITS | Encounter Summary ---
Author Organization [employer] Address [address] [facility] 7t [place] [address] Care Team Providers Care Manager College Name Role Phone Samantha Walker RICCI Primary Care Provider [phone] Reason for Visit * Reason Onset Date Comments Appointment 04/03/2022 Encounter Details Date Type Department Care Team ([facility] st Contact Info) Description 04/03/2022 Telephone [facility] [address] [place], [place] [phone] Robin Lopez, DDS [address] [place] [address] Appointment Social History Tobacco Use Types Packs/Day [...] Care Team (Late st Contact Info) Description 12/29/2024 8:00 AM EST Office Visit [facility] [address] [place] [address] Octavio Robbins, DDS [address] [place] [address] 03/10/2025 1:00 PM EST Office Visit [facility] [address] [place] [address] Samantha Walker, OD [address] [place] [address] documented as of this encounter Visit Diagnoses Not on filedocumented in this encounter Care Teams Manager College Relationship Specialty Start Date End Date Samantha Walker, OD [address] [place] [address] PCP - General Optometry 11/10/16 02/11/23 documented as of this encounter
--- OUTSIDE RECORDS SUMMARY | 2024-12-18 20:57 | XMS_ITS | Clinical Summary ---
Author Organization [employer] Address [address] [facility] 7t [place] [address] Care Team Providers Care Retail Field Supervisor Name Role Phone Unavailable Primary Care [...] tablet 600 mg. 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 Lopez 11/27/2024 10:00 AM EDT Office Visit [facility] [address] [place], [place] [phone] Marta Francis, WENDI 11/27/2024 Travel 11/05/2024 Telephone [facility] [address] [place] [address] Michelle Blanco filling fell out 11/03/2024 3:00 PM EDT Office Visit [facility] [address] [place] [address] Octavio Robbins DDS 10/31/2024 10:00 AM EDT Office Visit [facility]ULT [facility] [address] [place] [address] Jose EduardoFrancis [email or web address] 09/19/2024 9:00 AM EDT Office Visit [facility]ULT [facility] [address] [place] [address] Kate Monae Dental calculus (Primary Dx); Periodontal [...] Description 12/29/2024 8:00 AM EST Office Visit [facility] [address] [place] [address] Octavio Robbins DDS [address] [place] [address] 03/10/2025 1:00 PM EST Office Visit [facility] [address] [place] [address] Samantha Walker, OD [address] [place] [address] Health Maintenance Due Date Last Done Comments [...] Most Recently Relevant to Health Maintenance Insurance [facility] STANDARD MEDICARE DENTAL-[facility] MEDICAID STAND ADULT
--- OUTSIDE RECORDS SUMMARY | 2024-12-18 20:57 | XMS_ITS | Encounter Summary ---
Author Organization [employer] [facility] Address [address] [place] [address] [place], [place] [address] Care Team Providers Care Healthcare Facility Administrator Name Role Phone Samantha Walker OD Primary Care Provider [phone] Encounter Details Date Type Department Care Team (Latest Contact Info) Description 12/10/2020 Abstract [facility] CONVERSIONS Dental, Provider, DDS Social History Tobacco [...] Upcoming Encounters Date Type Department Care Team ( st Contact Info) Description 12/29/2024 8:00 AM EST Office Visit [facility] CHC ADULT DENTAL [address] [place] [address] Octavio Robbins DDS [address] [place] [address] 03/10/2025 1:00 PM EST Office Visit [facility] OPT[facility] [address] [place] [address] Samantha Walker OD [address] [place] [address] documented as of this encounter Visit Diagnoses Not on filedocumented in this encounter Care Teams Healthcare Facility Administrator Relationship Specialty Start Date End Date Samantha Walker OD [address] [place] [address] PCP - General Optometry 11/10/16 02/11/23 documented as of this encounter
--- OUTSIDE RECORDS SUMMARY | 2024-12-18 20:57 | XMS_ITS | Encounter Summary ---
Author Organization [employer] Address [address] [place] [address] [place] [address] Care Team Providers Care Plant Chief Name Role Phone Unavailable Primary Care Provider Unavailabl e Reason for Visit * Reason Onset Date Comments rct appt Dr. Lopez 12/10/2024 Encounter Details Date Type Department Care Team ([facility] st Contact Info) Description 12/10/2024 Telephone [facility] CHC ADULT DENTAL [address] [place] [address] Robin Lopez, CATHIES [address] [place] [address] Lopez Social History Tobacco Use Types Packs/Day Years [...] * Telephone Encounter - Mali Patel - 12/10/2024 9:18 AM EST Patient is looking to reschedule rct appointment with Dr. Lopez. Cancelled appointment for 12/01 due to unable to come in. Patient is aware there is a waiting list for Dr. Lopez an [facility] will give a call to jeromy Carrasco DR documented in this encounter Plan of Treatment Upcoming Encounters Date Type Department Care Team (Late st Contact Info) Description 12/29/2024 8:00 AM EST Office Visit [facility] ADULT DENTAL [address] [place] [address] Octavio Robbins, DDS [address] [place] [address] 03/10/2025 1:00 PM EST Office Visit [facility] OPT[facility] [address] [place] [address] Samantha Walker, OD [address] [place] [address] documented as of this encounter Visit Diagnoses Not on filedocumented in this encounter
--- OUTSIDE RECORDS SUMMARY | 2024-12-18 20:57 | XMS_ITS | Encounter Summary ---
Author Organization [facility] Address [address] [place] [address] Phone Care Team Providers Care Short Story Writer Name Role Phone Levy Whitney MD Primary Care Provider Encounter Details Date Type Department Care Team (Late st Contact Info) Description 12/08/2019 Procedure Pass [address] [address] Social History Tobacco Use Types Packs/Day Years [...] on filedocumented in this encounter Care Teams Short Story Writer Relationship Specialty Start Date End Date Levy Whitney MD [address] [place] [address] Dr BURCH WANDY Arellano [address] PCP - General Internal Medicine 03/12/19 documented as of this encounter Additional Source Comments The information contained in this document represents components of the legal health record. It is not the complete legal health record.[facility]
--- OUTSIDE RECORDS SUMMARY | 2024-12-18 20:57 | XMS_ITS | Clinical Summary ---
Author Organization [facility] Address [address] [facility] [address] [place] [address] Phone Care Team Providers Care Coil Cleaner Name Role Phone Levy Whitney MD Primary [...] HIV ONE-TIME SCREENING (18-6 5 YEARS) 2004 PNEUMOCOCCAL VACCINES (0-49 years) (1 of 2 - PCV) 2005 INFLUENZA VACCINE (#1) 2024 , 11/01/2016, 11/05/2015 COVID-19 VACCINE (3 - 2024-2 6 season) 2024 11/03/2020, 10/13/2020 SMOKING STATUS SCREENING (On ce After 26 Yrs) Completed 11/24/2021 HEPATITIS A VACCINES Aged Out No long er eligible based on patient's age to complete this topic HIB VACCINES Aged Out No longer eligi ble based on patient's age to complete this topic IPV VACCINES Aged Out No longer eligi ble based on patient's age to complete this topic MENINGOCOCCAL VACCINES (ACWY) Aged Out No longer eligible based on patient's age to complete this topic MENINGOCOCCAL VACCINES (B) Aged Out N o longer eligible based on patient's age to complete this topic Medical Devices Implanted Type Area Table Hand Device Identifier Shelf Expiration Date Model / Serial / Lot Linx Esophagus Description:Magnetic ring at gastroesophageal junction, MRI safe to 1.5T Insurance [facility] [employer] [facility] [address] [place], [place] [address]HEALTH TOGETHER [employer] TOGETHER [employer] TOGETHER M[employer] TOGETHER MCO [facility] TOGETHER MCO [facility] TOGETHER MCO Care Teams Coil Cleaner Relationship Specialty Start Date End Date Levy Whitney MD [address] [place] [address] [place] [address] PCP - General Internal Medicine 03/12/19 Additional Source Comments The information contained in this document represents components of the legal health record. It is not the complete legal health record.[facility]
--- OUTSIDE RECORDS SUMMARY | 2024-12-18 20:57 | XMS_ITS | Clinical Summary ---
Author Organization [address] [place] [address] Address [address] [place] [address] Phone Care Team Providers Care Sales Property Manager Name Role Phone Levy Whitney MD Primary Care Provider [phone] Allergies No known active allergies Medications No [...] Upcoming Encounters Date Type Department Care Team ([facility] st Contact Info) Description 01/06/2025 10:30 AM EST Office Visit [facility] [place] [facility] [address] [place] [address] Lena Capone MD 175 [facility] [address] [place] [phone] Health Maintenance Due Date Last Done Comments [...] patient's age to complete this topic Insurance [employer] [id number] Care Teams Sales Property Manager Relationship Specialty Start Date End Date Levy Whitney MD [address] [place] [address] Dr Rina [place] PCP - General Internal Medicine 10/12/17
--- OUTSIDE RECORDS SUMMARY | 2024-12-18 20:58 | XMS_ITS | Encounter Summary ---
Author Organization [employer] Address [address] [place] [address] Care Team Providers Care Developer Evangelist Name Role Phone Unavailable Primary Care Provider Unavailabl e Reason for Visit * Reason Onset Date Comments filling fell out 11/05/2024 Encounter Details Date Type Department Care Team (Late Contact Info) Description 11/05/2024 Telephone [facility] [address] [place], [place] [phone] Michelle Blanco filling fell out Social History [...] Upcoming Encounters Date Type Department Care Team ([facility] Contact Info) Description 12/29/2024 8:00 AM EST Office Visit [facility] [address] [place], [place] [phone] Octavio Robbins, DDS [address] [place] [address] 03/10/2025 1:00 PM EST Office Visit [facility] [address] [place], [place] [phone] Samantha Walker, OD [address] [place] [address] documented as of this encounter Visit Diagnoses Not on filedocumented in this encounter
--- OUTSIDE RECORDS SUMMARY | 2024-12-18 20:58 | XMS_ITS | Encounter Summary ---
Author Organization [employer] Address [address] [place] [address] [address] [place] [address] Care Team Providers Care Personnel Administrator Name Role Phone Unavailable Primary Care Provider Unavailabl e Reason for Visit * Reason Onset Date Comments rs no show appt 03/04/2024 Encounter Details Date Type Department Care Team (Late st Contact Info) Description 03/04/2024 Telephone [facility] ADULT DENT[facility] [address] [place], [place] [phone] Francis Lozano, WENDI [address] [place], [place] [phone] rs no show appt Social History Tobacco [...] Description 12/29/2024 8:00 AM EST Office Visit [facility] [address] [place] [address] Octavio Robbins, CATHIES [address] [place] [address] 03/10/2025 1:00 PM EST Office Visit [facility] [address] [place] [address] Samantha Walker, OD [address] [place] [address] documented as of this encounter Visit Diagnoses Not on filedocumented in this encounter
== END ==
LOC: HO.SL 19:30
PROVIDERS: PCP Student in an Organized Health Care Education/Training Program; Visit Provider Student in an Organized Health Care Education/Training Program
DX: G47.33 Obstructive sleep apnea (adult) (pediatric) (principal); R53.83 Other fatigue; R40.0 Somnolence
CPT/HCPCS: 95810

== ENCOUNTER → 2024-12-18 20:52 | Outpatient (BNV) | payer MEDICARE, MEDICAID, SELFPAY | PROVIDERS: PCP Student in an Organized Health Care Education/Training Program; Visit Provider Internal Medicine | DX: G47.33 Obstructive sleep apnea (adult) (pediatric) (principal) | CPT/HCPCS: 95810 ==